=== PATIENT | female | born 1930 | race African-American/Black ===

== ENCOUNTER 2017-05-21 23:57 | Inpatient (IN) | payer OTHER ==
[2017-05-22 00:57] LABS: BASOPHIL 0.3 % (0-2.0); EOSINOPHIL 0.7 % (0-4.5); MCH 30.5 pg (25.7-33.7); MCHC 32.7 g/dl (32.0-36.0); MEAN CELL VOLUME 93.3 fl (80-96); MEAN PLT VOLUME 9.4 fl (7.5-11.1); NEUTROPHILS 81.4 % (42.8-82.8); PLATELET COUNT 188 K/MM3 (134-434); RDW 14.1 % (11.6-15.6); WHITE BLOOD COUNT 18.6 K/mm3 (4.0-10.0)
[2017-05-22 01:20] LABS: ALK PHOS 63 U/L (45-117); ANION GAP 10 (8-16); BILIRUBIN,TOTAL 0.4 mg/dL (0.2-1.0); CALCIUM 8.5 mg/dL (8.5-10.1); CO2 25 mmol/L (21-32); CREATININE 0.5 mg/dL (0.55-1.02); GLUCOSE,RANDOM 148 mg/dL (74-106); SGPT/ALT 25 U/L (12-78); TOT PROT 7.8 g/dl (6.4-8.2)
[2017-05-22 01:21] LABS: SGOT/AST 27 U/L (15-37)
[2017-05-22] MEDS ORDERED: SODIUM CHLORIDE 0.9% 1000 ML INFUS.BAG IV PRN (01:31)
--- NOTE | 2017-05-22 01:58 | PDOC ---
History of Present Illness - History of Present Illness Initial Comments: 05/22/17 01:58 Patient is an 87 year old female with significant medical hx of anemia, dementia , AFib, CVA w/ hemiplegia, GI bleed, previous intubation, chronic PEG tube, chronic respiratory failure (on a vent), and tracheostomy who has been sent to the ED via EMS from [facility] for respiratory distress and bloody secretions from trach. The patient is non-ambulatory and non-verbal; she is unable to provide history and history was taken from [place] papers. <Sugar Solis - Last Filed: 05/22/17 01:58> <Jasmin Warren - Last Filed: 05/22/17 02:18> - General Chief Complaint: Trach Tube Replacement Stated Complaint: TRACH PROBLEM Time Seen by Provider: 05/22/17 01:27 Past History <Sugar Solis - Last Filed: 05/22/17 01:58> - Past Medical History Anemia: Yes Cardiac Disorders: Yes (atrial fibrillation) CVA: Yes Suicide Attempt (Hx): (unknown) - Surgical History Abdominal Surgery: Yes (gastrostomy) - Psycho/Social/Smoking Cessation Hx Anxiety: No Suicidal Ideation: No Smoking Status: No Smoking History: Unknown if ever smoked Have you smoked in the past 12 months: No Number of Cigarettes Smoked Daily: 0 Hx Alcohol Use: No Drug/Substance Use Hx: No Substance Use Type: None <Jasmin Warren - Last Filed: 05/22/17 02:18> - Past Medical History Allergies/Adverse Reactions: Allergies Allergy/AdvReac Type Severity Reaction Status Date / Time No Known Allergies Allergy Verified 11/28/15 20:57 Home Medications: Ambulatory Orders Acetaminophen [Tylenol] 325 mg GT QID 09/30/14 Dextran 70/Hypromellose [Artificial Tears Drops] 1 drop OP DAILY 09/30/14 Diltiazem [Cardizem -] 60 mg PO Q6H 09/30/14 Heparin Na (Porcine) [Heparin] 5,000 units SCJ BID 09/30/14 Ipratropium/Albuterol Sulfate [Iprat-Albut 0.5-3(2.5) mg/3 ml] 3 ml IH QID PRN 09/30/14 Lactobacillus Acidophilus [Acidophilus] 1 each GT QID 09/30/14 Metoclopramide HCl 10 mg GT Q6H 09/30/14 Potassium Chloride 7.5 ml GT DAILY 09/30/14 Simethicone 80 mg GT QID 09/30/14 Pravastatin Sodium [Pravachol -] 40 mg GT HS 11/02/15 Cholestyramine/Sucrose [Questran Packet -] 4 gm PO ACDIN packet 11/09/15 Levothyroxine [Synthroid -] 88 mcg GT ACBK tablet 11/09/15 Omeprazole [Prilosec (RX)] 40 mg GT BID #0 11/09/15 Review of Systems - Review of Systems Comments:: 05/22/17 02:00 Patient unable to participate in ROS. <Sugar Solis - Last Filed: 05/22/17 01:58> *Physical Exam - Vital Signs Last Vital Signs Temp Pulse Resp BP Pulse Ox 101.7 F H 82 18 167/85 98 05/22/17 00:11 05/22/17 00:38 05/22/17 00:37 05/22/17 00:11 05/22/17 00:38 - Physical Exam Comments: 05/22/17 02:00 GENERAL: Well developed, well nourished. Awake. Non-verbal. No acute distress. HEENT: Normocephalic, atraumatic. PERRLA, EOMI. No conjunctival pallor. Sclera are non- icteric. Moist mucous membranes. Oropharynx is clear. NECK: Supple. Full ROM. No JVD. Carotid pulses 2+ and symmetric, without bruits. No thyromegaly. No lymphadenopathy. CARDIOVASCULAR: Regular rate and rhythm. No murmurs, rubs, or gallops. Distal pulses are 2+ and symmetric. PULMONARY: Tracheostomy in place with frothy secretions. Chronic respiratory failure on a vent. Diffuse rhonchorous breath sounds. ABDOMINAL: G-tube intact without erythema. Soft. Non-tender. Non-distended. No rebound or guarding. No organomegaly. Normoactive bowel sounds. : Pino in place. MUSCULOSKELETAL: No bony deformities or tenderness. No CVA tenderness. EXTREMITIES: Contracted lower extremities. No cyanosis. No clubbing. No edema. No calf tenderness. SKIN: Warm and dry. Normal capillary refill. No rashes. No jaundice. NEUROLOGICAL: Alert. Non-verbal. Non-ambulatory. Functional quadriplegic. <Sugar Solis - Last Filed: 05/22/17 01:58> - Vital Signs Last Vital Signs Temp Pulse Resp BP Pulse Ox 101.7 F H 82 18 167/85 98 05/22/17 00:11 05/22/17 00:38 05/22/17 00:37 05/22/17 00:11 05/22/17 00:38 <Jasmin Warren - Last Filed: 05/22/17 02:18> ED Treatment Course - LABORATORY CBC & Chemistry Diagram: 05/22/17 00:20 05/22/17 00:20 - ADDITIONAL ORDERS Additional order review: Laboratory Results 05/22/17 05/22/17 00:40 00:20 Sodium 130 L Potassium 4.7 Chloride 95 L Carbon Dioxide 25 Anion Gap 10 BUN 17 D Creatinine 0.5 L D Creat Clearance w eGFR > 60 Random Glucose 148 H Lactic Acid 1.9 Calcium 8.5 Total Bilirubin 0.4 D AST 27 ALT 25 D Alkaline Phosphatase 63 Total Protein 7.8 Albumin 3.0 L 05/22/17 00:20 RBC 3.71 MCV 93.3 MCHC 32.7 RDW 14.1 MPV 9.4 Neutrophils % 81.4 D Lymphocytes % 9.1 D Monocytes % 8.5 Eosinophils % 0.7 Basophils % 0.3 <IrmaSugar - Last Filed: 05/22/17 01:58> - LABORATORY CBC & Chemistry Diagram: 05/22/17 00:20 05/22/17 00:20 - ADDITIONAL ORDERS Additional order review: Laboratory Results 05/22/17 05/22/17 00:40 00:20 Sodium 130 L Potassium 4.7 Chloride 95 L Carbon Dioxide 25 Anion Gap 10 BUN 17 D Creatinine 0.5 L D Creat Clearance w eGFR > 60 Random Glucose 148 H Lactic Acid 1.9 Calcium 8.5 Total Bilirubin 0.4 D AST 27 ALT 25 D Alkaline Phosphatase 63 Total Protein 7.8 Albumin 3.0 L 05/22/17 00:20 RBC 3.71 MCV 93.3 MCHC 32.7 RDW 14.1 MPV 9.4 Neutrophils % 81.4 D Lymphocytes % 9.1 D Monocytes % 8.5 Eosinophils % 0.7 Basophils % 0.3 - RADIOLOGY Radiology Studies Ordered: Category Date Time Status CHEST X-RAY PORTABLE* [RAD] Stat Radiology 05/22/17 01:31 Ordered <Jasmin Warren - Last Filed: 05/22/17 02:18> Medical Decision Making - Medical Decision Making 05/22/17 01:59 Dr. Hays is patient's PCP who requested that Dr. Martinez admit the patient. <Sugar Solis - Last Filed: 05/22/17 01:58> - Critical Care Time Total Critical Care Time (minutes): 30 Critical Care Statement: The care of this patient involved high complexity decision making to prevent further life threatening deterioration of the patient 's condition and/or to evalute & treat vital organ system(s) failure or risk of failure. - Medical Decision Making 05/22/17 02:08 87-year-old female who is a chronic vent patient brought in by ambulance to the senior care for a frothy discharge from her trach. this is a fever of 101.7, and requires sepsis workup CBC, chemistry, cardiac, blood cultures, urine cultures and lactic , chest x- ray didn't I spoke with Dr. Martinez because Dr. Hays requested Dr. Martinez admit the patient Patient will be admitted to [facility] <Jasmin Warren - Last Filed: 05/22/17 02:18> *DC/Admit/Observation/Transfer - Attestations Scribe Attestion: 05/22/17 02:04 Documentation prepared by Sugar Solis, acting as director medical for Jasmin Warren MD. <Sugar Solis - Last Filed: 05/22/17 01:58> - Discharge Dispostion Admit: Yes <Jasmin Warren - Last Filed: 05/22/17 02:18> Diagnosis at time of Disposition: Fever Qualifiers: Fever type: due to other condition Qualified Code(s): R50.81 - Fever presenting with conditions classified elsewhere Atrial fibrillation Qualifiers: Atrial fibrillation type: unspecified Qualified Code(s): I48.91 - Unspecified atrial fibrillation Dementia Qualifiers: Dementia type: unspecified type Dementia behavioral disturbance: without behavioral disturbance Qualified Code(s): F03.90 - Unspecified dementia without behavioral disturbance
[2017-05-22 02:02] LABS: VENOUS PH 7.44 (7.32-7.42)
[2017-05-22 02:03] LABS: VENOUS BLOOD GAS HCO3 24.3 meq/L (19-25)
[2017-05-22] MEDS ORDERED: ACETAMINOPHEN 650 MG SUPP.RECT PR ONE (02:13)
[2017-05-22] MEDS ORDERED: VANCOMYCIN 1,000 MG in DEXTROSE 5%-WATER - 250 ML IVPB ONE (02:13)
[2017-05-22] MEDS ORDERED: PIPERACILLIN/TAZOB 3.375 GM 3.375 GM in DEXTROSE 5%-WATER - 50 ML IVPB ONE (02:14)
[2017-05-22 02:39] LABS: INR 1.15 (0.82-1.09); PROTHROMBIN TIME (PATIENT) 12.7 SEC (9.98-11.88)
[2017-05-22 02:49] LABS: TROPONIN I < 0.02 ng/ml (0.00-0.05)
[2017-05-22 03:10] LABS: URINE APPEARANCE CLEAR; URINE BILIRUBIN NEGATIVE (NEGATIVE); URINE BLOOD NEGATIVE (NEGATIVE); URINE COLOR YELLOW; URINE GLUCOSE (UA) NEGATIVE (NEGATIVE); URINE KETONE NEGATIVE (NEGATIVE); URINE LEUK ESTERASE NEGATIVE (NEGATIVE); URINE NITRITE NEGATIVE (NEGATIVE); URINE PROTEIN 2+ (NEGATIVE); URINE UROBILINOGEN NEGATIVE E.U./dl (0.2-1.0)
[2017-05-22] MEDS ORDERED: VANCOMYCIN 1 GRAM (PRE-DOCKED) 250 ML IVPB ONE (03:16)
[2017-05-22] MEDS ORDERED: PIPERACILLIN/TAZOB 3.375 GM 50 ML IVPB ONE (03:16)
[2017-05-22 04:24] LABS: URINE MUCUS RARE; URINE RBC 2 /hpf (0-3); URINE WBC 2 /hpf (3-5)
[2017-05-22] MEDS: IPRATROPIUM BR 0.02% 0.5 MG/2.5 ML VIAL.NEB. NEB SCH ×3 (06:03→18:06)
[2017-05-22] MEDS: dilTIAZem HCL 60 MG TABLET (FP) PO SCH ×3 (06:03→17:58)
[2017-05-22] MEDS: ALBUTEROL SO4 0.083% IH SOL 2.5 MG/3 ML VIAL.NEB. NEB SCH ×3 (06:03→18:06)
[2017-05-22] MEDS: METOCLOPRAMIDE HCL 10 MG TABLET (FP) PO SCH ×3 (06:04→17:58)
[2017-05-22] MEDS ORDERED: METOCLOPRAMIDE HCL 10 MG TABLET (FP) PO ONE (06:06)
[2017-05-22] MEDS ORDERED: dilTIAZem HCL 60 MG TABLET (FP) ONE (06:06)
[2017-05-22] MEDS: LEVOTHYROXINE NA 88 MCG TABLET (FP) GT SCH (07:02)
[2017-05-22] MEDS ORDERED: CEFTRIAXONE 50 ML IVPB SCH (10:00)
--- NOTE | 2017-05-22 11:21 | PN ---
Progress Note (short form) - Note Progress Note: ID Consult dictated Ventilator associated pneumonia Possible sepsis secondary to pneumonia Chronic respiratory failure Fever/ leukocytosis Lactic acidosis Obtain suctioned sputum c/s Empiric zosyn
--- NOTE | 2017-05-22 11:45 | CONS ---
DATE OF CONSULTATION: 05/22/2017 INFECTIOUS DISEASE CONSULTATION HISTORY OF PRESENT ILLNESS: The patient is an 87-year-old female with a history of chronic respiratory failure admitted from the longterm with pneumonia. History is obtained from the chart as she cannot give a history secondary to dementia. At the longterm she was noted to be increasingly short of breath with blood-tinged tracheal secretions. She was transferred to the emergency room where her temperature was 101.7 and white blood cell count was 18.6. Chest x-ray showed congestion bilaterally. She was empirically treated with ceftriaxone. She is unable to give any additional history. According to the notes no recent hospitalizations. PAST MEDICAL HISTORY: Positive for dementia, chronic anemia, atrial fibrillation, stroke, gastrointestinal bleeding. PAST SURGICAL HISTORY: Status post tracheostomy and feeding gastrostomy. ALLERGIES: No known drug allergies. MEDICATIONS: Include Cardizem, Lipitor, Protonix, Reglan, ceftriaxone, Synthroid. SOCIAL HISTORY: [facility] resident, dependent activities of daily living. REVIEW OF SYSTEMS: Neurologic: Positive for stroke and dementia. Cardiac: Negative for chest pain or palpitations. Respiratory: As per HPI. Gastrointestinal: Status post feeding gastrostomy. Genitourinary: Negative for urinary tract infection. LABORATORY DATA: White count is 18.6 with 81 neutrophils, 9 lymphocytes, 8 monocytes, hematocrit 34.1, platelet count 188. BUN 17, creatinine 0.5. Urinalysis showed 2 white cells. Blood and urine cultures are pending. Chest x-ray shows congestion bilaterally with nonvisualization of the left hemidiaphragm. PHYSICAL EXAMINATION: General: The patient is awake but not verbally responsive. Vital signs: Temperature 100, T-max 101.7, blood pressure 125/71, pulse 81 regular, respirations 16 per minute. HEENT: Sclerae anicteric. Tracheostomy in place. Heart: S1, S2. Lungs: Rhonchi bilaterally. Abdomen: Obese, soft, positive ventral hernia, feeding gastrostomy tube is in place. No erythema or tenderness. Extremities: 1+ edema, no heel or sacral decubitus ulcers. IMPRESSION: 1. Ventilator associated pneumonia. 2. Possible sepsis secondary to pneumonia. 3. Chronic respiratory failure. 4. Fever/leukocytosis. 5. Lactic acidosis. RECOMMENDATIONS: I have obtained suction or sputum culture and sensitivity. Await blood culture results. Empiric Zosyn, bronchodilators, ventilatory support. Will follow. Thank you for the kind referral. ELAINE TREVIÑO M.D. [id number]
[2017-05-22] MEDS: PANTOPRAZOLE SOD 40 MG SUSPENSION PACKET GT SCH ×2 (11:51→22:36)
[2017-05-22] MEDS: HEPARIN NA (PORCINE) 5,000 UNITS/ML 1ML VIAL SQ SCH ×2 (11:52→22:34)
[2017-05-22] MEDS: PIPERACILLIN/TAZOB 3.375 GM 50 ML IVPB SCH ×2 (12:48→17:58)
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
[2017-05-22 14:45] VITALS: BMI 31.2
--- NOTE | 2017-05-22 16:28 | PN ---
Progress Note, Physician Chief Complaint: BLOODY SPUTUM RESPIRATORY DISTRESS History of Present Illness: Patient comfortable on mechanical vent. Seen by ID and Pulmonary Received IVF, on IV abx Sepsis work up - Current Medication List Current Medications: Active Medications Acetaminophen (Tylenol -) 650 mg PO Q6H PRN Albuterol Sulfate (Ventolin 0.083% Nebulizer Soln -) 1 amp NEB Q6HPO TATIANA Last Admin: 05/22/17 11:03 Dose: 1 amp Atorvastatin Calcium (Lipitor -) 10 mg GT HS TATIANA Diltiazem HCl (Cardizem -) 60 mg PO Q6HPO TATIANA Last Admin: 05/22/17 11:52 Dose: 60 mg Heparin Sodium (Porcine) (Heparin -) 5,000 unit SQ BID TATIANA Last Admin: 05/22/17 11:52 Dose: 5,000 unit Piperacillin Sod/Tazobactam Sod (Zosyn 3.375gm Ivpb (Pre-Docked)) 50 mls @ 100 mls/hr IVPB Q8H-IV TATIANA PRN Reason: Protocol Last Admin: 05/22/17 12:48 Dose: 100 mls/hr Ipratropium [place] [facility] (Atrovent 0.02% Nebulizer -) 1 amp NEB Q6HPO TATIANA Last Admin: 05/22/17 11:03 Dose: 1 amp Levothyroxine Sodium (Synthroid -) 88 mcg GT ACBK PENDING SALE TO [facility] Last Admin: 05/22/17 07:02 Dose: Not Given Metoclopramide HCl (Reglan -) 10 mg PO Q6HPO PENDING SALE TO [facility] Last Admin: 05/22/17 11:53 Dose: 10 mg Pantoprazole Sodium (Protonix Packets For Oral Suspension -) 40 mg GT BID PENDING SALE TO [facility] Last Admin: 05/22/17 11:51 Dose: 40 mg Sodium Chloride (Normal Saline -) 250 ml IV Q20M PRN PRN Reason: MAP<65mm Hg OR SBP <90 Last Admin: 05/22/17 06:52 Dose: 250 ml - Objective Vital Signs: Vital Signs Temperature 97.6 F 05/22/17 13:54 Pulse Rate 72 05/22/17 13:54 Respiratory Rate 25 H 05/22/17 14:24 Blood Pressure 107/60 05/22/17 13:54 O2 Sat by Pulse Oximetry (%) 98 05/22/17 11:00 Constitutional: Yes: Well Nourished, No Distress, Calm Cardiovascular: Yes: Regular Rate and Rhythm Respiratory: Yes: Regular Gastrointestinal: Yes: Normal Bowel Sounds Extremities: Yes: WNL Edema: No Peripheral Pulses WNL: Yes Labs: INR, PTT INR 1.15 (0.82-1.09) H 05/22/17 01:45 Problem List - Problems (1) CHF (congestive heart failure) Assessment/Plan: -Congestive changes on CXR -BNP, repeat labs Code(s): I50.9 - HEART FAILURE, UNSPECIFIED (2) Respiratory distress Assessment/Plan: -mechanical vent -Pulmonary consult Code(s): R06.00 - DYSPNEA, UNSPECIFIED (3) Leukocytosis Assessment/Plan: -sepsis workup -repeat lactic acid -seen by ID -IV abx -UCBC,SC pending -repeat labs today and in AM. Code(s): D72.829 - ELEVATED WHITE BLOOD CELL COUNT, UNSPECIFIED Assessment/Plan -repeat labs -iv abx -UC,BC,SC -ID and Pulmonary consult -nutrition consult
--- NOTE | 2017-05-22 16:37 | HP ---
Admitting History and Physical - Primary Care Physician PCP: Elma Martinez - Admission Chief Complaint: RESPIRATORY DISTRESS, FEVER History of Present Illness: Patient is an 87 year old female with significant medical hx of anemia, dementia , AFib, CVA w/ hemiplegia, GI bleed, previous intubation, chronic PEG tube, chronic respiratory failure (on a vent), and tracheostomy who has been sent to the ED via EMS from [facility] for respiratory distress and bloody secretions from trach. The patient is non-ambulatory and non-verbal; she is unable to provide history and history was taken from [place] papers. 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) Cardiovascular: Yes: AFIB Pulmonary: Yes: Previously Intubated, Other (Vent dependent) Gastrointestinal: Yes: GI Bleed - Smoking History Smoking history: Unknown if ever smoked Have you smoked in the past 12 months: No Aproximately how many cigarettes per day: 0 - Alcohol/Substance Use Hx Alcohol Use: No Home Medications - Allergies Allergies/Adverse Reactions: Allergies Allergy/AdvReac Type Severity Reaction Status Date / Time No Known Allergies Allergy Verified 11/28/15 20:57 - Home Medications Home Medications: Ambulatory Orders Acetaminophen [Tylenol] 325 mg GT QID 09/30/14 Diltiazem [Cardizem -] 60 mg PO Q6H 09/30/14 Heparin Na (Porcine) [Heparin] 5,000 units SCJ BID 09/30/14 Lactobacillus Acidophilus [Acidophilus] 1 each GT QID 09/30/14 Metoclopramide HCl 10 mg GT Q6H 09/30/14 Potassium Chloride 7.5 ml GT DAILY 09/30/14 Simethicone 80 mg GT QID 09/30/14 Pravastatin Sodium [Pravachol -] 40 mg GT HS 11/02/15 Cholestyramine/Sucrose [Questran Packet -] 4 gm PO ACDIN packet 11/09/15 Levothyroxine [Synthroid -] 88 mcg GT ACBK tablet 11/09/15 Ranitidine [Zantac -] 150 mg GT HS 05/22/17 Review of Systems Findings/Remarks: PER TRANSFER RECORD - Review of Systems Constitutional: reports: Fever ( PER TRANSFER RECORDS) Respiratory: reports: Hemoptysis Physical Examination Vital Signs: Vital Signs Temperature 97.6 F 05/22/17 13:54 Pulse Rate 72 05/22/17 13:54 Respiratory Rate 25 H 05/22/17 14:24 Blood Pressure 107/60 05/22/17 13:54 O2 Sat by Pulse Oximetry (%) 98 05/22/17 11:00 Constitutional: Yes: Well Nourished, No Distress, Calm Cardiovascular: Yes: Regular Rate and Rhythm Respiratory: Yes: Regular Imaging - Results Chest X-ray: Report Reviewed Problem List - Problems (1) CHF (congestive heart failure) Assessment/Plan: -Congestive changes on CXR -BNP, repeat labs Code(s): I50.9 - HEART FAILURE, UNSPECIFIED (2) Respiratory distress Assessment/Plan: -mechanical vent -Pulmonary consult Code(s): R06.00 - DYSPNEA, UNSPECIFIED (3) Leukocytosis Assessment/Plan: -sepsis workup -repeat lactic acid -seen by ID -IV abx -UC,BC,SC pending -repeat labs today and in AM. Code(s): D72.829 - ELEVATED WHITE BLOOD CELL COUNT, UNSPECIFIED Assessment/Plan -repeat labs -iv abx -UC,BC,SC -ID and Pulmonary consult -nutrition consult -Cardiology consult
[2017-05-22 17:34] LABS: BASOPHIL 0.1 % (0-2.0); EOSINOPHIL 1.2 % (0-4.5); MCH 30.2 pg (25.7-33.7); MCHC 32.5 g/dl (32.0-36.0); MEAN CELL VOLUME 92.8 fl (80-96); MEAN PLT VOLUME 10.4 fl (7.5-11.1); NEUTROPHILS 85.2 % (42.8-82.8); PLATELET COUNT 190 K/MM3 (134-434); RDW 14.1 % (11.6-15.6); WHITE BLOOD COUNT 13.2 K/mm3 (4.0-10.0)
[2017-05-22 18:00] LABS: ALK PHOS 61 U/L (45-117); ANION GAP 9 (8-16); BILIRUBIN,TOTAL 0.5 mg/dL (0.2-1.0); CALCIUM 8.7 mg/dL (8.5-10.1); CO2 27 mmol/L (21-32); CREATININE 0.7 mg/dL (0.55-1.02); GLUCOSE,RANDOM 122 mg/dL (74-106); SGOT/AST 19 U/L (15-37); SGPT/ALT 25 U/L (12-78); TOT PROT 7.9 g/dl (6.4-8.2)
[2017-05-22] MEDS: ATORVASTATIN CA 10 MG TABLET (FP) GT SCH (22:38)
[2017-05-22] MEDS ORDERED: PNEUMOC 13-VAL CONJ-DIP CRM/PF 0.5 ML DISP.SYRIN IM ONE (23:49)
[2017-05-23] MEDS: IPRATROPIUM BR 0.02% 0.5 MG/2.5 ML VIAL.NEB. NEB SCH ×5 (00:06→23:57)
[2017-05-23] MEDS: ALBUTEROL SO4 0.083% IH SOL 2.5 MG/3 ML VIAL.NEB. NEB SCH ×5 (00:06→23:57)
[2017-05-23] MEDS: PIPERACILLIN/TAZOB 3.375 GM 50 ML IVPB SCH ×3 (01:13→17:48)
[2017-05-23] MEDS: dilTIAZem HCL 60 MG TABLET (FP) PO SCH ×5 (01:13→23:03)
[2017-05-23] MEDS: METOCLOPRAMIDE HCL 10 MG TABLET (FP) PO SCH ×5 (01:13→23:03)
[2017-05-23] MEDS: ACETAMINOPHEN 325 MG TABLET (FP) PO PRN ×2 (05:37→23:00)
[2017-05-23] MEDS: LEVOTHYROXINE NA 88 MCG TABLET (FP) GT SCH (06:07)
[2017-05-23 07:34] LABS: BASOPHIL 0.2 % (0-2.0); EOSINOPHIL 1.3 % (0-4.5); MCH 30.8 pg (25.7-33.7); MCHC 33.1 g/dl (32.0-36.0); MEAN CELL VOLUME 92.9 fl (80-96); MEAN PLT VOLUME 10.1 fl (7.5-11.1); NEUTROPHILS 85.5 % (42.8-82.8); PLATELET COUNT 175 K/MM3 (134-434); WHITE BLOOD COUNT 16.8 K/mm3 (4.0-10.0)
[2017-05-23 08:32] LABS: ALBUMIN 2.8 g/dl (3.4-5.0); ALK PHOS 92 U/L (45-117); ANION GAP 11 (8-16); BILIRUBIN,TOTAL 0.4 mg/dL (0.2-1.0); CALCIUM 8.2 mg/dL (8.5-10.1); CO2 24 mmol/L (21-32); CREATININE 0.8 mg/dL (0.55-1.02); GLUCOSE,RANDOM 173 mg/dL (74-106); SGOT/AST 51 U/L (15-37); SGPT/ALT 47 U/L (12-78); TOT PROT 7.8 g/dl (6.4-8.2)
--- NOTE | 2017-05-23 11:31 | EKG ---
Test Reason : Blood Pressure : / mmHG Vent. Rate : 082 BPM Atrial Rate : 082 BPM P-R Int : 000 ms QRS Dur : 122 ms QT Int : 380 ms P-R-T Axes : 000 -43 046 degrees QTc Int : 443 ms UNDETERMINED RHYTHM LEFT AXIS DEVIATION RIGHT BUNDLE BRANCH BLOCK ABNORMAL ECG Confirmed by RYAN WILLIS MD ([id number]) on 05/23/2017 11:30:42 AM Referred By: Confirmed By:RYAN WILLIS MD
--- NOTE | 2017-05-23 11:32 | PN ---
Progress Note, Physician Chief Complaint: BLOODY SPUTUM RESPIRATORY DISTRESS History of Present Illness: Patient comfortable on mechanical vent. Seen by ID and Pulmonary Received IVF, on IV abx Sepsis work up - Current Medication List Current Medications: Active Medications Acetaminophen (Tylenol -) 650 mg PO Q6H PRN Last Admin: 05/23/17 05:37 Dose: 650 mg Albuterol Sulfate (Ventolin 0.083% Nebulizer Soln -) 1 amp NEB Q6HPO TATIANA Last Admin: 05/23/17 07:14 Dose: 1 amp Atorvastatin Calcium (Lipitor -) 10 mg GT HS TATIANA Last Admin: 05/22/17 22:38 Dose: 10 mg Diltiazem HCl (Cardizem -) 60 mg PO Q6HPO TATIANA Last Admin: 05/23/17 05:30 Dose: 60 mg Heparin Sodium (Porcine) (Heparin -) 5,000 unit SQ BID TATIANA Last Admin: 05/22/17 22:34 Dose: 5,000 unit Piperacillin Sod/Tazobactam Sod (Zosyn 3.375gm Ivpb (Pre-Docked)) 50 mls @ 100 mls/hr IVPB Q8H-IV TATIANA PRN Reason: Protocol Last Admin: 05/23/17 01:13 Dose: 100 mls/hr Ipratropium [place] (Atrovent 0.02% Nebulizer -) 1 amp NEB Q6HPO TATIANA Last Admin: 05/23/17 07:14 Dose: 1 amp Levothyroxine Sodium (Synthroid -) 88 mcg GT ACBK TATIANA Last Admin: 05/23/17 06:07 Dose: 88 mcg Metoclopramide HCl (Reglan -) 10 mg PO Q6HPO TATIANA Last Admin: 05/23/17 05:30 Dose: 10 mg Pantoprazole Sodium (Protonix Packets For Oral Suspension -) 40 mg GT BID TATIANA Last Admin: 05/22/17 22:36 Dose: 40 mg Sodium Chloride (Normal Saline -) 250 ml IV Q20M PRN PRN Reason: MAP<65mm Hg OR SBP <90 Last Admin: 05/22/17 06:52 Dose: 250 ml - Objective Vital Signs: Vital Signs Temperature 98.6 F 05/23/17 09:22 Pulse Rate 78 05/23/17 09:22 Respiratory Rate 20 05/23/17 10:05 Blood Pressure 122/70 05/23/17 09:22 O2 Sat by Pulse Oximetry (%) 99 05/22/17 22:00 Constitutional: Yes: Well Nourished, No Distress, Calm Cardiovascular: Yes: Regular Rate and Rhythm Respiratory: Yes: Regular Gastrointestinal: Yes: Normal Bowel Sounds Extremities: Yes: WNL Edema: No Peripheral Pulses WNL: No Peripheral Pulses: Left Doralis Pedis: 1+, Right Dorsalis Pedis: 1+ Neurological: Yes: Aphasia, Pre-Existing Deficit, Unresponsive Labs: CBC, BMP 05/23/17 06:10 05/23/17 06:10 INR, PTT INR 1.15 (0.82-1.09) H 05/22/17 01:45 Problem List - Problems (1) CHF (congestive heart failure) Assessment/Plan: -Congestive changes on CXR Troponin, BNP 05/22/17 16:40 B-Natriuretic Peptide 4386.46 H -to be seen by cardiology Code(s): I50.9 - HEART FAILURE, UNSPECIFIED (2) Respiratory distress Assessment/Plan: -chronic -mechanical vent -Pulmonary consult Code(s): R06.00 - DYSPNEA, UNSPECIFIED (3) Leukocytosis Assessment/Plan: -sepsis workup -repeat lactic acid 1.8 -seen by ID -IV abx -UC,BC,SC pending WBC 16.8 K/mm3 (4.0-10.0) H 05/23/17 06:10 RBC 3.88 M/mm3 (3.60-5.2) 05/23/17 06:10 Hgb 11.9 GM/dL (10.7-15.3) 05/23/17 06:10 Hct 36.0 % (32.4-45.2) 05/23/17 06:10 MCV 92.9 fl (80-96) 05/23/17 06:10 MCHC 33.1 g/dl (32.0-36.0) 05/23/17 06:10 RDW 14.0 % (11.6-15.6) 05/23/17 06:10 Plt Count 175 K/MM3 (134-434) 05/23/17 06:10 MPV 10.1 fl (7.5-11.1) 05/23/17 06:10 Neutrophils % 85.5 % (42.8-82.8) H 05/23/17 06:10 Lymphocytes % 5.4 % (8-40) L 05/23/17 06:10 Monocytes % 7.6 % (3.8-10.2) 05/23/17 06:10 Eosinophils % 1.3 % (0-4.5) 05/23/17 06:10 Basophils % 0.2 % (0-2.0) 05/23/17 06:10 Sodium 133 mmol/L (136-145) L 05/23/17 06:10 Potassium 4.4 mmol/L (3.5-5.1) 05/23/17 06:10 Chloride 98 mmol/L (98-107) 05/23/17 06:10 Carbon Dioxide 24 mmol/L (21-32) 05/23/17 06:10 Anion Gap 11 (8-16) 05/23/17 06:10 BUN 24 mg/dL (7-18) H D 05/23/17 06:10 Creatinine 0.8 mg/dL (0.55-1.02) 05/23/17 06:10 Creat Clearance w eGFR > 60 (>60) 05/23/17 06:10 Random Glucose 173 mg/dL (74-106) H D 05/23/17 06:10 Lactic Acid 1.8 mmol/L (0.4-2.0) 05/23/17 06:10 Calcium 8.2 mg/dL (8.5-10.1) L 05/23/17 06:10 Total Bilirubin 0.4 mg/dL (0.2-1.0) 05/23/17 06:10 AST 51 U/L (15-37) H D 05/23/17 06:10 ALT 47 U/L (12-78) D 05/23/17 06:10 Alkaline Phosphatase 92 U/L (45-117) D 05/23/17 06:10 Creatine Kinase 78 IU/L (26-192) 05/22/17 01:45 Troponin I < 0.02 ng/ml (0.00-0.05) 05/22/17 01:45 B-Natriuretic Peptide 4386.46 pg/ml (5-450) H 05/22/17 16:40 Total Protein 7.8 g/dl (6.4-8.2) 05/23/17 06:10 Albumin 2.8 g/dl (3.4-5.0) L 05/23/17 06:10 Code(s): D72.829 - ELEVATED WHITE BLOOD CELL COUNT, UNSPECIFIED Assessment/Plan -repeat labs in AM -iv abx -UC,BC,SC pending -ID and Pulmonary consult -nutrition consult -Cardiology consult -feeding adjusted.
--- NOTE | 2017-05-23 11:38 | PN ---
Progress Note (short form) - Note Progress Note: PULMONARY Febrile overnight. Vented on volume assist control with 28% FiO2. Pt unresponsive. Last Vital Signs Temp Pulse Resp BP Pulse Ox 98.6 F 78 20 122/70 99 05/23/17 09:22 05/23/17 09:22 05/23/17 10:05 05/23/17 09:22 05/22/17 22:00 Gen: vented, unresponsive Heart: RRR Lung: scattered rhonchi Abd: soft, nontender Ext: no edema CBC, BMP 05/23/17 06:10 05/23/17 06:10 Active Medications Acetaminophen (Tylenol -) 650 mg PO Q6H PRN Last Admin: 05/23/17 05:37 Dose: 650 mg Albuterol Sulfate (Ventolin 0.083% Nebulizer Soln -) 1 amp NEB Q6HPO TAT[place]NA Last Admin: 05/23/17 07:14 Dose: 1 amp Atorvastatin Calcium (Lipitor -) 10 mg GT HS TATIANA Last Admin: 05/22/17 22:38 Dose: 10 mg Diltiazem HCl (Cardizem -) 60 mg PO Q6HPO T[place]NA Last Admin: 05/23/17 05:30 Dose: 60 mg Heparin Sodium (Porcine) (Heparin -) 5,000 unit SQ BID TATIANA Last Admin: 05/22/17 22:34 Dose: 5,000 unit Piperacillin Sod/Tazobactam Sod (Zosyn 3.375gm Ivpb (Pre-Docked)) 50 mls @ 100 mls/hr IVPB Q8H-IV TATIANA PRN Reason: Protocol Last Admin: 05/23/17 01:13 Dose: 100 mls/hr Ipratropium [place] (Atrovent 0.02% Nebulizer -) 1 amp NEB Q6HPO TAT[place]NA Last Admin: 05/23/17 07:14 Dose: 1 amp Levothyroxine Sodium (Synthroid -) 88 mcg GT ACBK T[place]NA Last Admin: 05/23/17 06:07 Dose: 88 mcg Metoclopramide HCl (Reglan -) 10 mg PO Q6HPO TAT[place]NA Last Admin: 05/23/17 05:30 Dose: 10 mg Pantoprazole Sodium (Protonix Packets For Oral Suspension -) 40 mg GT BID T[place]NA Last Admin: 05/22/17 22:36 Dose: 40 mg Sodium Chloride (Normal Saline -) 250 ml IV Q20M PRN PRN Reason: MAP<65mm Hg OR SBP <90 Last Admin: 05/22/17 06:52 Dose: 250 ml A/P Chronic Respiratory Failure Ventilator Associated Pneumonia Anoxic Encephalopathy Lactic Acidosis resolved Atrial fibrillation - antibiotics per ID - f/u cultures - IVF - enteral feeds - continue volume assist control - not a candidate for weaning at this time due to mental status - DVT/GI prophylaxis
[2017-05-23] MEDS: PANTOPRAZOLE SOD 40 MG SUSPENSION PACKET GT SCH ×2 (11:39→22:59)
[2017-05-23] MEDS: HEPARIN NA (PORCINE) 5,000 UNITS/ML 1ML VIAL SQ SCH ×2 (11:40→22:59)
--- NOTE | 2017-05-23 13:28 | PN ---
Progress Note, Physician Chief Complaint: Awake, non- verbal temp noted WBC remains elevated Cultures pending - Current Medication List Current Medications: Active Medications Acetaminophen (Tylenol -) 650 mg PO Q6H PRN Last Admin: 05/23/17 05:37 Dose: 650 mg Albuterol Sulfate (Ventolin 0.083% Nebulizer Soln -) 1 amp NEB Q6HPO TAT[place]NA Last Admin: 05/23/17 11:30 Dose: 1 amp Atorvastatin Calcium (Lipitor -) 10 mg GT HS TATIANA Last Admin: 05/22/17 22:38 Dose: 10 mg Diltiazem HCl (Cardizem -) 60 mg PO Q6HPO TAT[place]NA Last Admin: 05/23/17 11:43 Dose: 60 mg Heparin Sodium (Porcine) (Heparin -) 5,000 unit SQ BID TATIANA Last Admin: 05/23/17 11:40 Dose: 5,000 unit Piperacillin Sod/Tazobactam Sod (Zosyn 3.375gm Ivpb (Pre-Docked)) 50 mls @ 100 mls/hr IVPB Q8H-IV TATIANA PRN Reason: Protocol Last Admin: 05/23/17 11:38 Dose: 100 mls/hr Ipratropium [place] (Atrovent 0.02% Nebulizer -) 1 amp NEB Q6HPO TATIANA Last Admin: 05/23/17 11:30 Dose: 1 amp Levothyroxine Sodium (Synthroid -) 88 mcg GT ACBK TATIANA Last Admin: 05/23/17 06:07 Dose: 88 mcg Metoclopramide HCl (Reglan -) 10 mg PO Q6HPO TATIANA Last Admin: 05/23/17 11:39 Dose: 10 mg Pantoprazole Sodium (Protonix Packets For Oral Suspension -) 40 mg GT BID TATIANA Last Admin: 05/23/17 11:39 Dose: 40 mg Sodium Chloride (Normal Saline -) 250 ml IV Q20M PRN PRN Reason: MAP<65mm Hg OR SBP <90 Last Admin: 05/22/17 06:52 Dose: 250 ml - Objective Vital Signs: Vital Signs Temperature 98.6 F 05/23/17 09:22 Pulse Rate 78 05/23/17 09:22 Respiratory Rate 20 05/23/17 10:05 Blood Pressure 122/70 05/23/17 09:22 O2 Sat by Pulse Oximetry (%) 99 05/22/17 22:00 Constitutional: Yes: No Distress Eyes: Yes: Conjunctiva Clear Cardiovascular: Yes: Regular Rate and Rhythm, S1, S2 Respiratory: Yes: Diminished Gastrointestinal: Yes: Normal Bowel Sounds, Soft. No: Tenderness Edema: Yes Labs: CBC, BMP 05/23/17 06:10 05/23/17 06:10 INR, PTT INR 1.15 (0.82-1.09) H 05/22/17 01:45 Assessment/Plan Ventilator associated pneumonia Sepsis secondary to pneumonia Chronic respiratory failure Fever/leukocytosis Lactic acidosis- resolved Await c/s Continue empiric zosyn Ventilatory support
--- NOTE | 2017-05-23 14:21 | CON.CARD ---
Consult Consult Specialty:: Cardiology Referred by:: Dr Martinez Reason for Consultation:: resp distress - History of Present Illness Chief Complaint: resp distress History of Present Illness: 87 year old female history of anemia, dementia, AFib, CVA, GI bleed, tracheostomy and PEG tube due to chronic respiratory failure, NHR, sent to the ED via EMS from [facility] for respiratory distress and bloody secretions from trach. The patient is non-ambulatory and non-verbal; she is unable to provide any history. Found with elevated wbc, fever and also elevated bnp. 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[place]/CVA) Cardio/Vascular: Yes: AFIB Pulmonary: Yes: Previously Intubated, Other (Vent dependent) Gastrointestinal: Yes: GI Bleed - Alcohol/Substance Use Hx Alcohol Use: No - Smoking History Smoking history: Unknown if ever smoked Have you smoked in the past 12 months: No Aproximately how many cigarettes per day: 0 Home Medications - Allergies Allergies/Adverse Reactions: Allergies Allergy/AdvReac Type Severity Reaction Status Date / Time No Known Allergies Allergy Verified 11/28/15 20:57 - Home Medications Home Medications: Ambulatory Orders Acetaminophen [Tylenol] 325 mg GT QID 09/30/14 Diltiazem [Cardizem -] 60 mg PO Q6H 09/30/14 Heparin Na (Porcine) [Heparin] 5,000 units SCJ BID 09/30/14 Lactobacillus Acidophilus [Acidophilus] 1 each GT QID 09/30/14 Metoclopramide HCl 10 mg GT Q6H 09/30/14 Potassium Chloride 7.5 ml GT DAILY 09/30/14 Simethicone 80 mg GT QID 09/30/14 Pravastatin Sodium [Pravachol -] 40 mg GT HS 11/02/15 Cholestyramine/Sucrose [Questran Packet -] 4 gm PO ACDIN packet 11/09/15 Levothyroxine [Synthroid -] 88 mcg GT ACBK tablet 11/09/15 Ranitidine [Zantac -] 150 mg GT HS 05/22/17 Review of Systems Unable to obtain ROS, reason: dementia Vital Signs: Vital Signs Temperature 98.6 F 05/23/17 09:22 Pulse Rate 78 05/23/17 09:22 Respiratory Rate 16 05/23/17 14:07 Blood Pressure 122/70 07/06/17 09:22 O2 Sat by Pulse Oximetry (%) 99 05/22/17 22:00 Constitutional: Yes: No Distress Eyes: Yes: Conjunctiva Clear HENT: Yes: Atraumatic, Normocephalic Neck: Yes: Other (tracheostomy) Respiratory: Yes: Mechanically Ventilated Gastrointestinal: Yes: Normal Bowel Sounds Cardiovascular: Yes: Pulse Irregular JVD: Yes Carotid Bruit: No PMI: Displaced Heart Sounds: Yes: S1, S2 Edema: Yes Edema: LLE: 1+, RLE: 1+ Peripheral Pulses WNL: Yes - Other Data Labs, Other Data: CBC, BMP 05/23/17 06:10 05/23/17 06:10 INR, PTT INR 1.15 (0.82-1.09) H 05/22/17 01:45 Troponin, BNP 05/22/17 16:40 B-Natriuretic Peptide 4386.46 H Troponin, BNP 05/22/17 16:40 B-Natriuretic Peptide 4386.46 H Echo: Report Reviewed (nlef 2013) Imaging - Results Chest X-ray: Report Reviewed (congestive changes, left base density) EKG: Report Reviewed (afib lad rbbb) Problem List - Problems (1) Atrial fibrillation Assessment/Plan: stable on medications. Rates are controlled. Code(s): I48.91 - UNSPECIFIED ATRIAL FIBRILLATION Qualifiers: Atrial fibrillation type: unspecified Qualified Code(s): I48.91 - Unspecified atrial fibrillation (2) CHF (congestive heart failure) Assessment/Plan: she has acute on chronic diastolic chf which is stable at present, exacerbated by her infected state with capillary leak from sepsis and low oncotic pressures. defer lasix due to worsening azotemia and alkalosis with rising bicarb. not a candidate for cardiac workup. conservative care for symptoms only at this point from a cardiac perspective. will see as needed. Code(s): I50.9 - HEART FAILURE, UNSPECIFIED Qualifiers: Congestive heart failure type: diastolic Congestive heart failure chronicity: acute on chronic Qualified Code(s): I50.33 - Acute on chronic diastolic (congestive) heart failure
[2017-05-23] MEDS: ATORVASTATIN CA 10 MG TABLET (FP) GT SCH (22:59)
[2017-05-24] MEDS: PIPERACILLIN/TAZOB 3.375 GM 50 ML IVPB SCH ×3 (02:14→17:26)
[2017-05-24] MEDS: IPRATROPIUM BR 0.02% 0.5 MG/2.5 ML VIAL.NEB. NEB SCH ×4 (06:02→23:18)
[2017-05-24] MEDS: ALBUTEROL SO4 0.083% IH SOL 2.5 MG/3 ML VIAL.NEB. NEB SCH ×4 (06:03→23:18)
[2017-05-24] MEDS: METOCLOPRAMIDE HCL 10 MG TABLET (FP) PO SCH ×4 (06:08→23:42)
[2017-05-24] MEDS: LEVOTHYROXINE NA 88 MCG TABLET (FP) GT SCH (06:08)
[2017-05-24] MEDS: dilTIAZem HCL 60 MG TABLET (FP) PO SCH ×4 (06:08→23:42)
[2017-05-24] MEDS ORDERED: PT OWN MED DRAWER 7, Y5N ONE (09:58)
--- NOTE | 2017-05-24 10:20 | PN ---
Progress Note, Physician Chief Complaint: BLOODY SPUTUM RESPIRATORY DISTRESS History of Present Illness: Patient comfortable on mechanical vent. Seen by ID and Pulmonary Received IVF, on IV abx Sepsis work up - Current Medication List Current Medications: Active Medications Acetaminophen (Tylenol -) 650 mg PO Q6H PRN Last Admin: 05/23/17 23:00 Dose: 650 mg Albuterol Sulfate (Ventolin 0.083% Nebulizer Soln -) 1 amp NEB Q6HPO TATIANA Last Admin: 05/24/17 06:03 Dose: 1 amp Atorvastatin Calcium (Lipitor -) 10 mg GT HS TATIANA Last Admin: 05/23/17 22:59 Dose: 10 mg Diltiazem HCl (Cardizem -) 60 mg PO Q6HPO TATIANA Last Admin: 05/24/17 06:08 Dose: 60 mg Heparin Sodium (Porcine) (Heparin -) 5,000 unit SQ BID TATIANA Last Admin: 05/23/17 22:59 Dose: 5,000 unit Piperacillin Sod/Tazobactam Sod (Zosyn 3.375gm Ivpb (Pre-Docked)) 50 mls @ 100 mls/hr IVPB Q8H-IV TATIANA PRN Reason: Protocol Last Admin: 05/24/17 02:14 Dose: 100 mls/hr Ipratropium [place] (Atrovent 0.02% Nebulizer -) 1 amp NEB Q6HPO TATIANA Last Admin: 05/24/17 06:02 Dose: 1 amp Levothyroxine Sodium (Synthroid -) 88 mcg GT ACBK TATIANA Last Admin: 05/24/17 06:08 Dose: 88 mcg Metoclopramide HCl (Reglan -) 10 mg PO Q6HPO T[place]NA Last Admin: 05/24/17 06:08 Dose: 10 mg Pantoprazole Sodium (Protonix Packets For Oral Suspension -) 40 mg GT BID TATIANA Last Admin: 05/23/17 22:59 Dose: 40 mg Sodium Chloride (Normal Saline -) 250 ml IV Q20M PRN PRN Reason: MAP<65mm Hg OR SBP <90 Last Admin: 05/22/17 06:52 Dose: 250 ml - Objective Vital Signs: Vital Signs Temperature 99.8 F H 05/24/17 06:00 Pulse Rate 101 H 05/24/17 06:00 Respiratory Rate 21 05/24/17 09:50 Blood Pressure 144/79 05/24/17 06:00 O2 Sat by Pulse Oximetry (%) 94 L 05/24/17 09:49 Constitutional: Yes: Well Nourished, No Distress, Calm Cardiovascular: Yes: Regular Rate and Rhythm Respiratory: Yes: Regular Gastrointestinal: Yes: Normal Bowel Sounds Musculoskeletal: Yes: WNL Extremities: Yes: WNL Edema: No Peripheral Pulses: Left Doralis Pedis: 1+, Right Dorsalis Pedis: 1+ Neurological: Yes: Alert (responds to touch and her name) Labs: CBC, BMP 05/23/17 06:10 05/23/17 06:10 INR, PTT INR 1.15 (0.82-1.09) H 05/22/17 01:45 Problem List - Problems (1) CHF (congestive heart failure) Assessment/Plan: -Congestive changes on CXR Troponin, BNP 05/22/17 16:40 B-Natriuretic Peptide 4386.46 H -seen by cardiology -no diuresis recommended Code(s): I50.9 - HEART FAILURE, UNSPECIFIED Qualifiers: Congestive heart failure type: diastolic Congestive heart failure chronicity: acute on chronic Qualified Code(s): I50.33 - Acute on chronic diastolic (congestive) heart failure (2) Respiratory distress Assessment/Plan: -chronic -mechanical vent -Pulmonary consult Code(s): R06.00 - DYSPNEA, UNSPECIFIED (3) Leukocytosis Assessment/Plan: -sepsis workup -lactic acidosis resolved -seen by ID -IV abx-zosyn -repeat labs today and in AM Microbiology 05/22/17 01:47 Blood Culture - Preliminary Blood - Peripheral Venous NO GROWTH OBTAINED AFTER 48 HOURS, INCUBATION TO CONTINUE FOR 3 DAYS. 05/22/17 00:40 Blood Culture - Preliminary Blood - Peripheral Venous NO GROWTH OBTAINED AFTER 48 HOURS, INCUBATION TO CONTINUE FOR 3 DAYS. 05/22/17 13:00 Gram Stain - Final Sputum - Endotrachea Suction/Ventilator Sputum Culture - Preliminary Lactose Fermenting Neg Bacilli Non Lactose Fermenting Gnb 05/22/17 02:30 Urine Culture - Final Urine - Urine - Catheterized NO GROWTH OBTAINED Code(s): D72.829 - ELEVATED WHITE BLOOD CELL COUNT, UNSPECIFIED (4) Respiratory failure Code(s): J96.90 - RESPIRATORY FAILURE, UNSP, UNSP W HYPOXIA OR HYPERCAPNIA Qualifiers: Chronicity: acute on chronic (5) Ventilator associated pneumonia Assessment/Plan: Microbiology 05/22/17 01:47 Blood Culture - Preliminary Blood - Peripheral Venous NO GROWTH OBTAINED AFTER 48 HOURS, INCUBATION TO CONTINUE FOR 3 DAYS. 05/22/17 00:40 Blood Culture - Preliminary Blood - Peripheral Venous NO GROWTH OBTAINED AFTER 48 HOURS, INCUBATION TO CONTINUE FOR 3 DAYS. 05/22/17 13:00 Gram Stain - Final Sputum - Endotrachea Suction/Ventilator Sputum Culture - Preliminary Lactose Fermenting Neg Bacilli Non Lactose Fermenting Gnb 05/22/17 02:30 Urine Culture - Final Urine - Urine - Catheterized NO GROWTH OBTAINED -n IV abx -seen by ID and pulmonary Code(s): J95.851 - VENTILATOR ASSOCIATED PNEUMONIA Assessment/Plan -continue IV abx -Tylenol for fever over 100.0F -uc and bc negative -sputum culture positive for lactose ferm gram neg bacilli -continue feeds -GI/DVT prophylaxis
[2017-05-24] MEDS: HEPARIN NA (PORCINE) 5,000 UNITS/ML 1ML VIAL SQ SCH ×2 (10:33→21:36)
[2017-05-24] MEDS: PANTOPRAZOLE SOD 40 MG SUSPENSION PACKET GT SCH ×2 (10:33→21:36)
[2017-05-24 11:14] LABS: BASOPHIL 0.1 % (0-2.0); EOSINOPHIL 4.1 % (0-4.5); MCHC 33.5 g/dl (32.0-36.0); MEAN CELL VOLUME 92.7 fl (80-96); MEAN PLT VOLUME 9.6 fl (7.5-11.1); PLATELET COUNT 181 K/MM3 (134-434); RDW 14.2 % (11.6-15.6); WHITE BLOOD COUNT 16.8 K/mm3 (4.0-10.0)
--- NOTE | 2017-05-24 11:51 | PN ---
Progress Note, Physician History of Present Illness: Awake, non-verbal Febrile Sputum c/s mixed E coli, Pseudomas - Current Medication List Current Medications: Active Medications Acetaminophen (Tylenol Oral Solution -) 650 mg PO Q4H PRN PRN Reason: FEVER OR PAIN Albuterol Sulfate (Ventolin 0.083% Nebulizer Soln -) 1 amp NEB Q6HPO TATIANA Last Admin: 05/24/17 11:44 Dose: 1 amp Atorvastatin Calcium (Lipitor -) 10 mg GT HS TATIANA Last Admin: 05/23/17 22:59 Dose: 10 mg Diltiazem HCl (Cardizem -) 60 mg PO Q6HPO TATIANA Last Admin: 05/24/17 06:08 Dose: 60 mg Heparin Sodium (Porcine) (Heparin -) 5,000 unit SQ BID TATIANA Last Admin: 05/24/17 10:33 Dose: 5,000 unit Piperacillin Sod/Tazobactam Sod (Zosyn 3.375gm Ivpb (Pre-Docked)) 50 mls @ 100 mls/hr IVPB Q8H-IV TATIANA PRN Reason: Protocol Last Admin: 05/24/17 10:33 Dose: 100 mls/hr Ipratropium [place] (Atrovent 0.02% Nebulizer -) 1 amp NEB Q6HPO TATIANA Last Admin: 05/24/17 11:43 Dose: 1 amp Levothyroxine Sodium (Synthroid -) 88 mcg GT ACBK TATIANA Last Admin: 05/24/17 06:08 Dose: 88 mcg Metoclopramide HCl (Reglan -) 10 mg PO Q6HPO TATIANA Last Admin: 05/24/17 06:08 Dose: 10 mg Pantoprazole Sodium (Protonix Packets For Oral Suspension -) 40 mg GT BID TATIANA Last Admin: 05/24/17 10:33 Dose: 40 mg Sodium Chloride (Normal Saline -) 250 ml IV Q20M PRN PRN Reason: MAP<65mm Hg OR SBP <90 Last Admin: 05/22/17 06:52 Dose: 250 ml - Objective Vital Signs: Vital Signs Temperature 100.4 F H 05/24/17 10:00 Pulse Rate 108 H 05/24/17 10:00 Respiratory Rate 16 05/24/17 10:00 Blood Pressure 146/77 05/24/17 10:00 O2 Sat by Pulse Oximetry (%) 94 L 05/24/17 09:49 Constitutional: Yes: No Distress, Obese Eyes: Yes: Conjunctiva Clear Cardiovascular: Yes: Regular Rate and Rhythm, S1, S2 Respiratory: Yes: Mechanically Ventilated Gastrointestinal: Yes: Normal Bowel Sounds, Soft. No: Tenderness Edema: Yes Labs: CBC, BMP 05/24/17 10:45 INR, PTT INR 1.15 (0.82-1.09) H 05/22/17 01:45 Assessment/Plan Ventilator associated pneumonia Sepsis secondary to pneumonia Chronic respiratory failure Fever/leukocytosis Lactic acidosis- resolved Continue zosyn Ventilatory support
--- NOTE | 2017-05-24 12:02 | PN ---
Progress Note, Physician History of Present Illness: pulmonary no change, unresponsive on vent support ac mode,febrile - Current Medication List Current Medications: Active Medications Acetaminophen (Tylenol Oral Solution -) 650 mg PO Q4H PRN PRN Reason: FEVER OR PAIN Albuterol Sulfate (Ventolin 0.083% Nebulizer Soln -) 1 amp NEB Q6HPO TATIANA Last Admin: 05/24/17 11:44 Dose: 1 amp Atorvastatin Calcium (Lipitor -) 10 mg GT HS [facility] Last Admin: 05/23/17 22:59 Dose: 10 mg Diltiazem HCl (Cardizem -) 60 mg PO Q6HPO TATIANA Last Admin: 05/24/17 06:08 Dose: 60 mg Heparin Sodium (Porcine) (Heparin -) 5,000 unit SQ BID TATIANA Last Admin: 05/24/17 10:33 Dose: 5,000 unit Piperacillin Sod/Tazobactam Sod (Zosyn 3.375gm Ivpb (Pre-Docked)) 50 mls @ 100 mls/hr IVPB Q8H-IV TATIANA PRN Reason: Protocol Last Admin: 05/24/17 10:33 Dose: 100 mls/hr Ipratropium [place] (Atrovent 0.02% Nebulizer -) 1 amp NEB Q6HPO TATIANA Last Admin: 05/24/17 11:43 Dose: 1 amp Levothyroxine Sodium (Synthroid -) 88 mcg GT ACBK TATIANA Last Admin: 05/24/17 06:08 Dose: 88 mcg Metoclopramide HCl (Reglan -) 10 mg PO Q6HPO TATIANA Last Admin: 05/24/17 06:08 Dose: 10 mg Pantoprazole Sodium (Protonix Packets For Oral Suspension -) 40 mg GT BID [facility] Last Admin: 05/24/17 10:33 Dose: 40 mg Sodium Chloride (Normal Saline -) 250 ml IV Q20M PRN PRN Reason: MAP<65mm Hg OR SBP <90 Last Admin: 05/22/17 06:52 Dose: 250 ml - Objective Vital Signs: Vital Signs Temperature 100.4 F H 05/24/17 10:00 Pulse Rate 108 H 05/24/17 10:00 Respiratory Rate 16 05/24/17 10:00 Blood Pressure 146/77 05/24/17 10:00 O2 Sat by Pulse Oximetry (%) 94 L 05/24/17 09:49 Constitutional: Yes: Well Nourished, Other (unresponsive) Eyes: Yes: WNL HENT: Yes: WNL Neck: Yes: Supple (trach) Cardiovascular: Yes: Pulse Irregular, S1, S2 Respiratory: Yes: Rhonchi (bilateral rhonchi) Gastrointestinal: Yes: Normal Bowel Sounds, Soft Extremities: Yes: Other (contracted) Edema: No Labs: CBC, BMP 05/24/17 10:45 INR, PTT INR 1.15 (0.82-1.09) H 05/22/17 01:45 Problem List - Problems (1) Atrial fibrillation Code(s): I48.91 - UNSPECIFIED ATRIAL FIBRILLATION Qualifiers: Atrial fibrillation type: unspecified Qualified Code(s): I48.91 - Unspecified atrial fibrillation (2) Fever Code(s): R50.9 - FEVER, UNSPECIFIED Qualifiers: Fever type: due to other condition Qualified Code(s): R50.81 - Fever presenting with conditions classified elsewhere (3) Ventilator associated pneumonia Code(s): J95.851 - VENTILATOR ASSOCIATED PNEUMONIA (4) CVA (cerebral infarction) Code(s): I63.9 - CEREBRAL INFARCTION, UNSPECIFIED (5) HTN (hypertension) Code(s): I10 - ESSENTIAL (PRIMARY) HYPERTENSION (6) Obesity Code(s): E66.9 - OBESITY, UNSPECIFIED (7) Chronic respiratory failure Code(s): J96.10 - CHRONIC RESPIRATORY FAILURE, UNSP W HYPOXIA OR HYPERCAPNIA Assessment/Plan A/P Chronic Respiratory Failure Ventilator Associated Pneumonia Anoxic Encephalopathy Lactic Acidosis resolved Atrial fibrillation - antibiotics per ID - IVF - enteral feeds - continue volume assist control - not a candidate for weaning at this time due to mental status - DVT/GI prophylaxis DR VALENTINE
[2017-05-24 12:54] LABS: ALBUMIN 2.8 g/dl (3.4-5.0); ALK PHOS 104 U/L (45-117); ANION GAP 11 (8-16); BILIRUBIN,TOTAL 0.3 mg/dL (0.2-1.0); CALCIUM 8.3 mg/dL (8.5-10.1); CO2 27 mmol/L (21-32); CREATININE 0.7 mg/dL (0.55-1.02); GLUCOSE,RANDOM 200 mg/dL (74-106); SGOT/AST 39 U/L (15-37); SGPT/ALT 55 U/L (12-78); TOT PROT 7.7 g/dl (6.4-8.2)
[2017-05-24] MEDS: ATORVASTATIN CA 10 MG TABLET (FP) GT SCH (21:36)
[2017-05-24] MEDS: ACETAMINOPHEN 650 MG/20.3 ML ORAL SOLUTION (CUPS) PO PRN (23:00)
[2017-05-25] MEDS: PIPERACILLIN/TAZOB 3.375 GM 50 ML IVPB SCH ×3 (01:30→17:37)
[2017-05-25] MEDS: dilTIAZem HCL 60 MG TABLET (FP) PO SCH ×4 (05:24→23:49)
[2017-05-25] MEDS: METOCLOPRAMIDE HCL 10 MG TABLET (FP) PO SCH ×4 (05:24→23:50)
[2017-05-25] MEDS: ACETAMINOPHEN 650 MG/20.3 ML ORAL SOLUTION (CUPS) PO PRN ×2 (05:24→14:56)
[2017-05-25] MEDS: LEVOTHYROXINE NA 88 MCG TABLET (FP) GT SCH (06:21)
[2017-05-25] MEDS: IPRATROPIUM BR 0.02% 0.5 MG/2.5 ML VIAL.NEB. NEB SCH ×3 (06:58→18:48)
[2017-05-25] MEDS: ALBUTEROL SO4 0.083% IH SOL 2.5 MG/3 ML VIAL.NEB. NEB SCH ×3 (06:58→18:48)
[2017-05-25 07:46] LABS: BASOPHIL 0.2 % (0-2.0); EOSINOPHIL 3.3 % (0-4.5); MCH 30.8 pg (25.7-33.7); MCHC 33.1 g/dl (32.0-36.0); MEAN CELL VOLUME 93.3 fl (80-96); NEUTROPHILS 84.4 % (42.8-82.8); PLATELET COUNT 187 K/MM3 (134-434); RDW 14.3 % (11.6-15.6); WHITE BLOOD COUNT 21.3 K/mm3 (4.0-10.0)
[2017-05-25 08:20] LABS: ALBUMIN 2.7 g/dl (3.4-5.0); ALK PHOS 125 U/L (45-117); ANION GAP 7 (8-16); BILIRUBIN,TOTAL 0.3 mg/dL (0.2-1.0); CALCIUM 8.8 mg/dL (8.5-10.1); CO2 28 mmol/L (21-32); CREATININE 0.7 mg/dL (0.55-1.02); GLUCOSE,RANDOM 196 mg/dL (74-106); SGOT/AST 53 U/L (15-37); SGPT/ALT 63 U/L (12-78); TOT PROT 7.7 g/dl (6.4-8.2)
[2017-05-25] MEDS ORDERED: PT OWN MED DRAWER 7, Y5N ONE (08:46)
[2017-05-25] MEDS: PANTOPRAZOLE SOD 40 MG SUSPENSION PACKET GT SCH ×2 (11:13→23:50)
[2017-05-25] MEDS: HEPARIN NA (PORCINE) 5,000 UNITS/ML 1ML VIAL SQ SCH ×2 (11:13→23:50)
--- NOTE | 2017-05-25 11:31 | PN ---
Progress Note (short form) - Note Progress Note: PULMONARY Febrile overnight. Vented on volume assist control with 28% FiO2. Pt unresponsive but more tachypneic. Last Vital Signs Temp Pulse Resp BP Pulse Ox 98.9 F 105 H 20 142/80 98 05/25/17 10:00 05/25/17 10:00 05/25/17 10:44 05/25/17 10:00 05/25/17 10:00 Gen: vented, unresponsive, more tachypneic Heart: RRR Lung: scattered rhonchi Abd: soft, nontender Ext: no edema CBC, BMP 05/25/17 06:30 05/25/17 06:30 Active Medications Acetaminophen (Tylenol Oral Solution -) 650 mg PO Q4H PRN PRN Reason: FEVER OR PAIN Last Admin: 05/25/17 05:24 Dose: 650 mg Albuterol Sulfate (Ventolin 0.083% Nebulizer Soln -) 1 amp NEB Q6HPO [place] Last Admin: 05/25/17 11:27 Dose: 1 amp Atorvastatin Calcium (Lipitor -) 10 mg GT HS [place] Last Admin: 05/24/17 21:36 Dose: 10 mg Diltiazem HCl (Cardizem -) 60 mg PO Q6HPO [place] Last Admin: 05/25/17 05:24 Dose: 60 mg Heparin Sodium (Porcine) (Heparin -) 5,000 unit SQ BID [place] Last Admin: 05/24/17 21:36 Dose: 5,000 unit Piperacillin Sod/Tazobactam Sod (Zosyn 3.375gm Ivpb (Pre-Docked)) 50 mls @ 100 mls/hr IVPB Q8H-IV [place] PRN Reason: Protocol Last Admin: 05/25/17 01:30 Dose: 100 mls/hr Ipratropium [place] (Atrovent 0.02% Nebulizer -) 1 amp NEB Q6HPO [place] Last Admin: 05/25/17 11:27 Dose: 1 amp Levothyroxine Sodium (Synthroid -) 88 mcg GT ACBK [place] Last Admin: 05/25/17 06:21 Dose: 88 mcg Metoclopramide HCl (Reglan -) 10 mg PO Q6HPO [place] Last Admin: 05/25/17 05:24 Dose: 10 mg Pantoprazole Sodium (Protonix Packets For Oral Suspension -) 40 mg GT BID [place] Last Admin: 05/24/17 21:36 Dose: 40 mg Sodium Chloride (Normal Saline -) 250 ml IV Q20M PRN PRN Reason: MAP<65mm Hg OR SBP <90 Last Admin: 05/22/17 06:52 Dose: 250 ml A/P Chronic Respiratory Failure Ventilator Associated Pneumonia Anoxic Encephalopathy Lactic Acidosis resolved Atrial fibrillation - repeat CXR - antibiotics per ID - f/u cultures - enteral feeds - continue volume assist control - not a candidate for weaning at this time due to mental status - DVT/GI prophylaxis
--- NOTE | 2017-05-25 14:26 | PN ---
Progress Note, Physician Chief Complaint: THIS IS MY FIRST ENCOUNTER WITH THIS PATIENT LABS/EVENTS/NOTES REVIEWED VENT DEPENDENT - Current Medication List Current Medications: Active Medications Acetaminophen (Tylenol Oral Solution -) 650 mg PO Q4H PRN PRN Reason: FEVER OR PAIN Last Admin: 05/25/17 05:24 Dose: 650 mg Albuterol Sulfate (Ventolin 0.083% Nebulizer Soln -) 1 amp NEB Q6HPO [place] Last Admin: 05/25/17 11:27 Dose: 1 amp Atorvastatin Calcium (Lipitor -) 10 mg GT HS [place] Last Admin: 05/24/17 21:36 Dose: 10 mg Diltiazem HCl (Cardizem -) 60 mg PO Q6HPO [place] Last Admin: 05/25/17 11:16 Dose: 60 mg Heparin Sodium (Porcine) (Heparin -) 5,000 unit SQ BID [place] Last Admin: 05/25/17 11:13 Dose: 5,000 unit Piperacillin Sod/Tazobactam Sod (Zosyn 3.375gm Ivpb (Pre-Docked)) 50 mls @ 100 mls/hr IVPB Q8H-IV [place] PRN Reason: Protocol Last Admin: 05/25/17 11:14 Dose: 100 mls/hr Ipratropium [place] (Atrovent 0.02% Nebulizer -) 1 amp NEB Q6HPO [place] Last Admin: 05/25/17 11:27 Dose: 1 amp Levothyroxine Sodium (Synthroid -) 88 mcg GT ACBK [place] Last Admin: 05/25/17 06:21 Dose: 88 mcg Metoclopramide HCl (Reglan -) 10 mg PO Q6HPO [place] Last Admin: 05/25/17 11:16 Dose: 10 mg Pantoprazole Sodium (Protonix Packets For Oral Suspension -) 40 mg GT BID [place] Last Admin: 05/25/17 11:13 Dose: 40 mg Sodium Chloride (Normal Saline -) 250 ml IV Q20M PRN PRN Reason: MAP<65mm Hg OR SBP <90 Last Admin: 05/22/17 06:52 Dose: 250 ml - Objective Vital Signs: Vital Signs Temperature 98.9 F 05/25/17 10:00 Pulse Rate 105 H 05/25/17 10:00 Respiratory Rate 20 05/25/17 10:44 Blood Pressure 142/80 05/25/17 10:00 O2 Sat by Pulse Oximetry (%) 98 05/25/17 10:00 Constitutional: Yes: Mild Distress Eyes: Yes: WNL HENT: Yes: WNL Neck: Yes: WNL Cardiovascular: Yes: WNL Respiratory: Yes: Mechanically Ventilated Gastrointestinal: Yes: WNL Genitourinary: Yes: Incontinence Musculoskeletal: Yes: Muscle Weakness Edema: Yes Peripheral Pulses WNL: Yes Integumentary: Yes: Pressure Ulcer, Venous Stasis Changes Wound/Incision: Yes: Dressing Dry and Intact, Unapproximated Neurological: Yes: Pre-Existing Deficit ...Motor Strength: LLE, RLE Labs: CBC, BMP 05/25/17 06:30 05/25/17 06:30 INR, PTT INR 1.15 (0.82-1.09) H 05/22/17 01:45 Problem List - Problems (1) Atrial fibrillation Code(s): I48.91 - UNSPECIFIED ATRIAL FIBRILLATION Qualifiers: Atrial fibrillation type: unspecified Qualified Code(s): I48.91 - Unspecified atrial fibrillation (2) Chronic respiratory failure Code(s): J96.10 - CHRONIC RESPIRATORY FAILURE, UNSP W HYPOXIA OR HYPERCAPNIA (3) Dementia Code(s): F03.90 - UNSPECIFIED DEMENTIA WITHOUT BEHAVIORAL DISTURBANCE Qualifiers: Dementia type: unspecified type Dementia behavioral disturbance: without behavioral disturbance Qualified Code(s): F03.90 - Unspecified dementia without behavioral disturbance (4) Leukocytosis Code(s): D72.829 - ELEVATED WHITE BLOOD CELL COUNT, UNSPECIFIED (5) Respiratory distress Code(s): R06.00 - DYSPNEA, UNSPECIFIED (6) Ventilator associated pneumonia Code(s): J95.851 - VENTILATOR ASSOCIATED PNEUMONIA Assessment/Plan VENT DEPENDENT URO/PULM INFECTION ON IV ABX ID F/U
--- NOTE | 2017-05-25 15:16 | PN ---
Progress Note, Physician History of Present Illness: Not responsive on ventilator Persistant fever noted Breathing non-labored Cultures noted - Current Medication List Current Medications: Active Medications Acetaminophen (Tylenol Oral Solution -) 650 mg PO Q4H PRN PRN Reason: FEVER OR PAIN Last Admin: 05/25/17 14:56 Dose: 650 mg Albuterol Sulfate (Ventolin 0.083% Nebulizer Soln -) 1 amp NEB Q6HPO [place] Last Admin: 05/25/17 11:27 Dose: 1 amp Atorvastatin Calcium (Lipitor -) 10 mg GT HS [place] Last Admin: 05/24/17 21:36 Dose: 10 mg Diltiazem HCl (Cardizem -) 60 mg PO Q6HPO [place] Last Admin: 05/25/17 11:16 Dose: 60 mg Heparin Sodium (Porcine) (Heparin -) 5,000 unit SQ BID [place] Last Admin: 05/25/17 11:13 Dose: 5,000 unit Piperacillin Sod/Tazobactam Sod (Zosyn 3.375gm Ivpb (Pre-Docked)) 50 mls @ 100 mls/hr IVPB Q8H-IV [place] PRN Reason: Protocol Last Admin: 05/25/17 11:14 Dose: 100 mls/hr Ipratropium [place] (Atrovent 0.02% Nebulizer -) 1 amp NEB Q6HPO [place] Last Admin: 05/25/17 11:27 Dose: 1 amp Levothyroxine Sodium (Synthroid -) 88 mcg GT ACBK [place] Last Admin: 05/25/17 06:21 Dose: 88 mcg Metoclopramide HCl (Reglan -) 10 mg PO Q6HPO [place] Last Admin: 05/25/17 11:16 Dose: 10 mg Pantoprazole Sodium (Protonix Packets For Oral Suspension -) 40 mg GT BID [place] Last Admin: 05/25/17 11:13 Dose: 40 mg Sodium Chloride (Normal Saline -) 250 ml IV Q20M PRN PRN Reason: MAP<65mm Hg OR SBP <90 Last Admin: 05/22/17 06:52 Dose: 250 ml - Objective Vital Signs: Vital Signs Temperature 101.1 F H 05/25/17 14:50 Pulse Rate 111 H 05/25/17 14:50 Respiratory Rate 22 05/25/17 14:50 Blood Pressure 154/89 05/25/17 14:50 O2 Sat by Pulse Oximetry (%) 98 05/25/17 10:00 Constitutional: Yes: Obese Cardiovascular: Yes: Regular Rate and Rhythm, S1, S2 Respiratory: Yes: Mechanically Ventilated Gastrointestinal: Yes: Normal Bowel Sounds, Soft Edema: Yes Labs: CBC, BMP 05/25/17 06:30 05/25/17 06:30 INR, PTT INR 1.15 (0.82-1.09) H 05/22/17 01:45 Assessment/Plan Ventilator associated pneumonia Sepsis secondary to pneumonia Chronic respiratory failure Fever/leukocytosis Lactic acidosis- resolved Continue zosyn Repeat BC for persistant fever Ventilatory support Discussed with daughter at bedside
[2017-05-25] MEDS: ATORVASTATIN CA 10 MG TABLET (FP) GT SCH (23:50)
[2017-05-26] MEDS: ALBUTEROL SO4 0.083% IH SOL 2.5 MG/3 ML VIAL.NEB. NEB SCH ×4 (00:02→18:25)
[2017-05-26] MEDS: IPRATROPIUM BR 0.02% 0.5 MG/2.5 ML VIAL.NEB. NEB SCH ×4 (00:02→18:24)
[2017-05-26] MEDS: ACETAMINOPHEN 650 MG/20.3 ML ORAL SOLUTION (CUPS) PO PRN ×3 (01:12→22:57)
[2017-05-26] MEDS: PIPERACILLIN/TAZOB 3.375 GM 50 ML IVPB SCH ×2 (02:45→10:57)
[2017-05-26] MEDS: METOCLOPRAMIDE HCL 10 MG TABLET (FP) PO SCH ×4 (06:12→23:02)
[2017-05-26] MEDS: dilTIAZem HCL 60 MG TABLET (FP) PO SCH ×4 (06:12→23:02)
[2017-05-26] MEDS: LEVOTHYROXINE NA 88 MCG TABLET (FP) GT SCH (06:12)
[2017-05-26 08:45] LABS: MCH 30.7 pg (25.7-33.7); MCHC 32.8 g/dl (32.0-36.0); MEAN CELL VOLUME 93.6 fl (80-96); PLATELET COUNT 184 K/MM3 (134-434); RDW 14.5 % (11.6-15.6)
[2017-05-26 09:23] LABS: ANION GAP 7 (8-16); CALCIUM 8.5 mg/dL (8.5-10.1); CO2 32 mmol/L (21-32); GLUCOSE,RANDOM 140 mg/dL (74-106)
[2017-05-26 09:24] LABS: CREATININE 0.7 mg/dL (0.55-1.02)
--- NOTE | 2017-05-26 10:51 | PN ---
Progress Note, Physician History of Present Illness: Remains febrile with elevated WBC Repeat BC obtained Not responsive Breathing non-labored - Current Medication List Current Medications: Active Medications Acetaminophen (Tylenol Oral Solution -) 650 mg PO Q4H PRN PRN Reason: FEVER OR PAIN Last Admin: 05/26/17 01:12 Dose: 650 mg Albuterol Sulfate (Ventolin 0.083% Nebulizer Soln -) 1 amp NEB Q6HPO [place] Last Admin: 05/26/17 06:19 Dose: 1 amp Atorvastatin Calcium (Lipitor -) 10 mg GT HS [place] Last Admin: 05/25/17 23:50 Dose: 10 mg Diltiazem HCl (Cardizem -) 60 mg PO Q6HPO [place] Last Admin: 05/26/17 06:12 Dose: 60 mg Heparin Sodium (Porcine) (Heparin -) 5,000 unit SQ BID [place] Last Admin: 05/25/17 23:50 Dose: 5,000 unit Piperacillin Sod/Tazobactam Sod (Zosyn 3.375gm Ivpb (Pre-Docked)) 50 mls @ 100 mls/hr IVPB Q8H-IV [place] PRN Reason: Protocol Last Admin: 05/26/17 02:45 Dose: 100 mls/hr Ipratropium [place] (Atrovent 0.02% Nebulizer -) 1 amp NEB Q6HPO [place] Last Admin: 05/26/17 06:19 Dose: 1 amp Levothyroxine Sodium (Synthroid -) 88 mcg GT ACBK [place] Last Admin: 05/26/17 06:12 Dose: 88 mcg Metoclopramide HCl (Reglan -) 10 mg PO Q6HPO [place] Last Admin: 05/26/17 06:12 Dose: 10 mg Pantoprazole Sodium (Protonix Packets For Oral Suspension -) 40 mg GT BID [place] Last Admin: 05/25/17 23:50 Dose: 40 mg Sodium Chloride (Normal Saline -) 250 ml IV Q20M PRN PRN Reason: MAP<65mm Hg OR SBP <90 Last Admin: 05/22/17 06:52 Dose: 250 ml - Objective Vital Signs: Vital Signs Temperature 99.9 F H 05/26/17 06:00 Pulse Rate 102 H 05/26/17 06:00 Respiratory Rate 16 05/26/17 10:03 Blood Pressure 154/92 05/26/17 06:00 O2 Sat by Pulse Oximetry (%) 98 05/26/17 09:00 Constitutional: Yes: No Distress, Obese Eyes: Yes: Conjunctiva Clear Cardiovascular: Yes: Regular Rate and Rhythm, S1, S2 Respiratory: Yes: Mechanically Ventilated Gastrointestinal: Yes: Normal Bowel Sounds, Soft, Abdomen, Obese, Other (+ ventral hernia). No: Tenderness Edema: Yes Labs: CBC, BMP 05/26/17 07:45 05/26/17 07:45 INR, PTT INR 1.15 (0.82-1.09) H 05/22/17 01:45 Assessment/Plan Ventilator associated pneumonia Sepsis secondary to pneumonia Chronic respiratory failure Fever/leukocytosis- persists Lactic acidosis- resolved Discontinue zosyn Substitute ceftazidime / vancomycin Repeat BC pending Ventilatory support
[2017-05-26] MEDS: PANTOPRAZOLE SOD 40 MG SUSPENSION PACKET GT SCH ×2 (10:56→22:57)
[2017-05-26] MEDS: HEPARIN NA (PORCINE) 5,000 UNITS/ML 1ML VIAL SQ SCH ×2 (10:56→22:57)
--- NOTE | 2017-05-26 11:03 | PN ---
Progress Note (short form) - Note Progress Note: PULMONARY Persistently febrile overnight. CXR with worsening infiltrates.Vented on volume assist control with 28% FiO2. Pt unresponsive but more tachypneic. Last Vital Signs Temp Pulse Resp BP Pulse Ox 98.9 F 100 H 16 152/90 98 05/26/17 10:00 05/26/17 10:00 05/26/17 10:03 05/26/17 10:00 05/26/17 09:00 Gen: vented, unresponsive, more tachypneic Heart: RRR Lung: scattered rhonchi Abd: soft, nontender Ext: no edema CBC, BMP 05/26/17 07:45 05/26/17 07:45 Active Medications Acetaminophen (Tylenol Oral Solution -) 650 mg PO Q4H PRN PRN Reason: FEVER OR PAIN Last Admin: 05/26/17 01:12 Dose: 650 mg Albuterol Sulfate (Ventolin 0.083% Nebulizer Soln -) 1 amp NEB Q6HPO [place] Last Admin: 05/26/17 06:19 Dose: 1 amp Atorvastatin Calcium (Lipitor -) 10 mg GT HS [place] Last Admin: 05/25/17 23:50 Dose: 10 mg Diltiazem HCl (Cardizem -) 60 mg PO Q6HPO [place] Last Admin: 05/26/17 06:12 Dose: 60 mg Heparin Sodium (Porcine) (Heparin -) 5,000 unit SQ BID [place] Last Admin: 05/26/17 10:56 Dose: 5,000 unit Ceftazidime 1 gm/ Dextrose 100 mls @ 200 mls/hr IVPB Q8H-IV [place] PRN Reason: Protocol Vancomycin HCl 1,000 mg/ (Dextrose) 250 mls @ 200 mls/hr IVPB Q24H [place] Ipratropium [place] (Atrovent 0.02% Nebulizer -) 1 amp NEB Q6HPO [place] Last Admin: 05/26/17 06:19 Dose: 1 amp Levothyroxine Sodium (Synthroid -) 88 mcg GT ACBK [place] Last Admin: 05/26/17 06:12 Dose: 88 mcg Metoclopramide HCl (Reglan -) 10 mg PO Q6HPO [place] Last Admin: 05/26/17 06:12 Dose: 10 mg Pantoprazole Sodium (Protonix Packets For Oral Suspension -) 40 mg GT BID [place] Last Admin: 05/26/17 10:56 Dose: 40 mg Sodium Chloride (Normal Saline -) 250 ml IV Q20M PRN PRN Reason: MAP<65mm Hg OR SBP <90 Last Admin: 05/22/17 06:52 Dose: 250 ml A/P Chronic Respiratory Failure Ventilator Associated Pneumonia Anoxic Encephalopathy Lactic Acidosis resolved Atrial fibrillation - antibiotics per ID - f/u repeat cultures - enteral feeds - continue volume assist control - not a candidate for weaning at this time due to mental status - DVT/GI prophylaxis
--- NOTE | 2017-05-26 12:06 | PN ---
Progress Note, Physician Chief Complaint: awake aphasia VENT DEPENDENT - Current Medication List Current Medications: Active Medications Acetaminophen (Tylenol Oral Solution -) 650 mg PO Q4H PRN PRN Reason: FEVER OR PAIN Last Admin: 05/26/17 01:12 Dose: 650 mg Albuterol Sulfate (Ventolin 0.083% Nebulizer Soln -) 1 amp NEB Q6HPO [place] Last Admin: 05/26/17 12:02 Dose: 1 amp Atorvastatin Calcium (Lipitor -) 10 mg GT HS [facility] Last Admin: 05/25/17 23:50 Dose: 10 mg Diltiazem HCl (Cardizem -) 60 mg PO Q6HPO [place] Last Admin: 05/26/17 06:12 Dose: 60 mg Heparin Sodium (Porcine) (Heparin -) 5,000 unit SQ BID [place] Last Admin: 05/26/17 10:56 Dose: 5,000 unit Ceftazidime 1 gm/ Dextrose 100 mls @ 200 mls/hr IVPB Q8H-IV [place] PRN Reason: Protocol Vancomycin HCl (Vancomycin (Pre-Docked)) 250 mls @ 200 mls/hr IVPB DAILY [place] Ipratropium [place] (Atrovent 0.02% Nebulizer -) 1 amp NEB Q6HPO [place] Last Admin: 05/26/17 12:02 Dose: 1 amp Levothyroxine Sodium (Synthroid -) 88 mcg GT ACBK [place] Last Admin: 05/26/17 06:12 Dose: 88 mcg Metoclopramide HCl (Reglan -) 10 mg PO Q6HPO [place] Last Admin: 05/26/17 06:12 Dose: 10 mg Pantoprazole Sodium (Protonix Packets For Oral Suspension -) 40 mg GT BID [facility] Last Admin: 05/26/17 10:56 Dose: 40 mg Sodium Chloride (Normal Saline -) 250 ml IV Q20M PRN PRN Reason: MAP<65mm Hg OR SBP <90 Last Admin: 05/22/17 06:52 Dose: 250 ml - Objective Vital Signs: Vital Signs Temperature 98.9 F 05/26/17 10:00 Pulse Rate 100 H 05/26/17 10:00 Respiratory Rate 16 05/26/17 10:03 Blood Pressure 152/90 05/26/17 10:00 O2 Sat by Pulse Oximetry (%) 98 05/26/17 09:00 Constitutional: Yes: No Distress Eyes: Yes: WNL HENT: Yes: WNL Neck: Yes: WNL Cardiovascular: Yes: WNL Respiratory: Yes: Mechanically Ventilated Gastrointestinal: Yes: WNL Genitourinary: Yes: Incontinence Musculoskeletal: Yes: Muscle Weakness Extremities: Yes: Other Edema: Yes Peripheral Pulses WNL: Yes Integumentary: Yes: Other Wound/Incision: Yes: Dressing Dry and Intact Neurological: Yes: Pre-Existing Deficit, Unresponsive, Unsteady Gait, Weakness ...Motor Strength: LLE, RLE Psychiatric: Yes: Other Labs: CBC, BMP 05/26/17 07:45 05/26/17 07:45 INR, PTT INR 1.15 (0.82-1.09) H 05/22/17 01:45 Problem List - Problems (1) Atrial fibrillation Code(s): I48.91 - UNSPECIFIED ATRIAL FIBRILLATION Qualifiers: Atrial fibrillation type: unspecified Qualified Code(s): I48.91 - Unspecified atrial fibrillation (2) Chronic respiratory failure Code(s): J96.10 - CHRONIC RESPIRATORY FAILURE, UNSP W HYPOXIA OR HYPERCAPNIA (3) Dementia Code(s): F03.90 - UNSPECIFIED DEMENTIA WITHOUT BEHAVIORAL DISTURBANCE Qualifiers: Dementia type: unspecified type Dementia behavioral disturbance: without behavioral disturbance Qualified Code(s): F03.90 - Unspecified dementia without behavioral disturbance (4) Leukocytosis Code(s): D72.829 - ELEVATED WHITE BLOOD CELL COUNT, UNSPECIFIED (5) Respiratory distress Code(s): R06.00 - DYSPNEA, UNSPECIFIED (6) Ventilator associated pneumonia Code(s): J95.851 - VENTILATOR ASSOCIATED PNEUMONIA Assessment/Plan VENT DEPENDENT URO/PULM INFECTION ON IV ABX ID F/U
[2017-05-26] MEDS: VANCOMYCIN 1 GRAM (PRE-DOCKED) 250 ML IVPB SCH (13:30)
[2017-05-26] MEDS: CEFTAZIDIME PENTAHYDRATE 1 GM in DEXTROSE 5%-WATER - 100 ML IVPB SCH ×2 (13:45→17:51)
[2017-05-26] MEDS: ATORVASTATIN CA 10 MG TABLET (FP) GT SCH (22:57)
[2017-05-27] MEDS: IPRATROPIUM BR 0.02% 0.5 MG/2.5 ML VIAL.NEB. NEB SCH ×4 (00:30→18:46)
[2017-05-27] MEDS: ALBUTEROL SO4 0.083% IH SOL 2.5 MG/3 ML VIAL.NEB. NEB SCH ×4 (00:30→18:46)
[2017-05-27] MEDS: CEFTAZIDIME PENTAHYDRATE 1 GM in DEXTROSE 5%-WATER - 100 ML IVPB SCH ×3 (02:10→17:31)
[2017-05-27] MEDS: ACETAMINOPHEN 650 MG/20.3 ML ORAL SOLUTION (CUPS) PO PRN (04:09)
[2017-05-27] MEDS: dilTIAZem HCL 60 MG TABLET (FP) PO SCH ×3 (06:20→17:27)
[2017-05-27] MEDS: METOCLOPRAMIDE HCL 10 MG TABLET (FP) PO SCH ×3 (06:20→17:27)
[2017-05-27] MEDS: LEVOTHYROXINE NA 88 MCG TABLET (FP) GT SCH (06:20)
--- NOTE | 2017-05-27 09:49 | PN ---
Progress Note, Physician Chief Complaint: BLOODY SPUTUM RESPIRATORY DISTRESS History of Present Illness: Patient comfortable on mechanical vent. Seen by ID and Pulmonary Received IVF, on IV abx Sepsis work up - Current Medication List Current Medications: Active Medications Acetaminophen (Tylenol Oral Solution -) 650 mg PO Q4H PRN PRN Reason: FEVER OR PAIN Last Admin: 05/27/17 04:09 Dose: 650 mg Albuterol Sulfate (Ventolin 0.083% Nebulizer Soln -) 1 amp NEB Q6HPO [place] Last Admin: 05/27/17 06:27 Dose: 1 amp Atorvastatin Calcium (Lipitor -) 10 mg GT HS [place] Last Admin: 05/26/17 22:57 Dose: 10 mg Diltiazem HCl (Cardizem -) 60 mg PO Q6HPO [place] Last Admin: 05/27/17 06:20 Dose: 60 mg Heparin Sodium (Porcine) (Heparin -) 5,000 unit SQ BID [place] Last Admin: 05/26/17 22:57 Dose: 5,000 unit Ceftazidime 1 gm/ Dextrose 100 mls @ 200 mls/hr IVPB Q8H-IV [place] PRN Reason: Protocol Last Admin: 05/27/17 02:10 Dose: 200 mls/hr Vancomycin HCl (Vancomycin (Pre-Docked)) 250 mls @ 200 mls/hr IVPB DAILY [place] Last Admin: 05/26/17 13:30 Dose: 200 mls/hr Ipratropium [place] (Atrovent 0.02% Nebulizer -) 1 amp NEB Q6HPO [place] Last Admin: 05/27/17 06:27 Dose: 1 amp Levothyroxine Sodium (Synthroid -) 88 mcg GT ACBK [place] Last Admin: 05/27/17 06:20 Dose: 88 mcg Metoclopramide HCl (Reglan -) 10 mg PO Q6HPO [place] Last Admin: 05/27/17 06:20 Dose: 10 mg Pantoprazole Sodium (Protonix Packets For Oral Suspension -) 40 mg GT BID [place] Last Admin: 05/26/17 22:57 Dose: 40 mg Sodium Chloride (Normal Saline -) 250 ml IV Q20M PRN PRN Reason: MAP<65mm Hg OR SBP <90 Last Admin: 05/22/17 06:52 Dose: 250 ml - Objective Vital Signs: Vital Signs Temperature 100.4 F H 05/27/17 06:12 Pulse Rate 106 H 05/27/17 06:12 Respiratory Rate 16 05/27/17 06:26 Blood Pressure 149/89 05/27/17 06:12 O2 Sat by Pulse Oximetry (%) 98 05/26/17 09:00 Constitutional: Yes: Well Nourished, No Distress, Calm Cardiovascular: Yes: Regular Rate and Rhythm Respiratory: Yes: Regular, Mechanically Ventilated, Rhonchi (BLL) Gastrointestinal: Yes: Normal Bowel Sounds Genitourinary: Yes: Incontinence Musculoskeletal: Yes: WNL Extremities: Yes: WNL Edema: No Peripheral Pulses WNL: No Peripheral Pulses: Left Doralis Pedis: 1+, Right Dorsalis Pedis: 1+ Neurological: Yes: Aphasia Labs: CBC, BMP 05/26/17 07:45 05/26/17 07:45 INR, PTT INR 1.15 (0.82-1.09) H 05/22/17 01:45 Problem List - Problems (1) CHF (congestive heart failure) Assessment/Plan: -Congestive changes on CXR Troponin, BNP 05/22/17 16:40 B-Natriuretic Peptide 4386.46 H -seen by cardiology -no diuresis recommended Code(s): I50.9 - HEART FAILURE, UNSPECIFIED Qualifiers: Congestive heart failure type: diastolic Congestive heart failure chronicity: acute on chronic Qualified Code(s): I50.33 - Acute on chronic diastolic (congestive) heart failure (2) Respiratory distress Assessment/Plan: -chronic -mechanical vent -Pulmonary consult Code(s): R06.00 - DYSPNEA, UNSPECIFIED (3) Leukocytosis Assessment/Plan: -febrile, tylenol for fever over 100.0 F -seen by ID -IV abx switched to Vancomycin and ceftazidime -repeat BC pending-preliminary negative -repeat labs today and in AM Microbiology 05/22/17 01:47 Blood Culture - Final Blood - Peripheral Venous NO GROWTH AFTER 5 DAYS INCUBATION 05/22/17 00:40 Blood Culture - Final Blood - Peripheral Venous NO GROWTH AFTER 5 DAYS INCUBATION 05/25/17 17:10 Blood Culture - Preliminary Blood - Peripheral Venous NO GROWTH OBTAINED AFTER 24 HOURS, INCUBATION TO CONTINUE FOR 4 DAYS. 05/25/17 17:10 Blood Culture - Preliminary Blood - Peripheral Venous NO GROWTH OBTAINED AFTER 24 HOURS, INCUBATION TO CONTINUE FOR 4 DAYS. Code(s): D72.829 - ELEVATED WHITE BLOOD CELL COUNT, UNSPECIFIED (4) Respiratory failure Code(s): J96.90 - RESPIRATORY FAILURE, UNSP, UNSP W HYPOXIA OR HYPERCAPNIA Qualifiers: Chronicity: acute on chronic (5) Ventilator associated pneumonia Assessment/Plan: Microbiology 05/22/17 01:47 Blood Culture - Preliminary Blood - Peripheral Venous NO GROWTH OBTAINED AFTER 48 HOURS, INCUBATION TO CONTINUE FOR 3 DAYS. 05/22/17 00:40 Blood Culture - Preliminary Blood - Peripheral Venous NO GROWTH OBTAINED AFTER 48 HOURS, INCUBATION TO CONTINUE FOR 3 DAYS. 05/22/17 13:00 Gram Stain - Final Sputum - Endotrachea Suction/Ventilator Sputum Culture - Preliminary Lactose Fermenting Neg Bacilli Non Lactose Fermenting Gnb 05/22/17 02:30 Urine Culture - Final Urine - Urine - Catheterized NO GROWTH OBTAINED -n IV abx -seen by ID and pulmonary -Repeat BC pending Code(s): J95.851 - VENTILATOR ASSOCIATED PNEUMONIA Assessment/Plan -IV abx changed by ID to vancomycin and ceftazidime -Tylenol for fever over 100.0F -repeat bc pending-preliminary negative -sputum culture positive for lactose ferm gram neg bacilli -continue feeds -GI/DVT prophylaxis
[2017-05-27] MEDS ORDERED: PT OWN MED DRAWER 7, Y5N ONE ×2 (10:40→17:30)
[2017-05-27] MEDS: PANTOPRAZOLE SOD 40 MG SUSPENSION PACKET GT SCH (10:49)
[2017-05-27] MEDS: HEPARIN NA (PORCINE) 5,000 UNITS/ML 1ML VIAL SQ SCH (10:49)
[2017-05-27] MEDS: VANCOMYCIN 1 GRAM (PRE-DOCKED) 250 ML IVPB SCH (10:49)
--- NOTE | 2017-05-27 11:56 | PN ---
Progress Note, Physician History of Present Illness: pulmonary poorly responsive on vent support ac mode,febrile - Current Medication List Current Medications: Active Medications Acetaminophen (Tylenol Oral Solution -) 650 mg PO Q4H PRN PRN Reason: FEVER OR PAIN Last Admin: 05/27/17 04:09 Dose: 650 mg Albuterol Sulfate (Ventolin 0.083% Nebulizer Soln -) 1 amp NEB Q6HPO [place] Last Admin: 05/27/17 11:03 Dose: 1 amp Atorvastatin Calcium (Lipitor -) 10 mg GT HS [place] Last Admin: 05/26/17 22:57 Dose: 10 mg Diltiazem HCl (Cardizem -) 60 mg PO Q6HPO [place] Last Admin: 05/27/17 06:20 Dose: 60 mg Heparin Sodium (Porcine) (Heparin -) 5,000 unit SQ BID [facility] Last Admin: 05/27/17 10:49 Dose: 5,000 unit Ceftazidime 1 gm/ Dextrose 100 mls @ 200 mls/hr IVPB Q8H-IV [place] PRN Reason: Protocol Last Admin: 05/27/17 10:49 Dose: 200 mls/hr Vancomycin HCl (Vancomycin (Pre-Docked)) 250 mls @ 200 mls/hr IVPB DAILY [facility] Last Admin: 05/27/17 10:49 Dose: 200 mls/hr Ipratropium [place] (Atrovent 0.02% Nebulizer -) 1 amp NEB Q6HPO [facility] Last Admin: 05/27/17 11:03 Dose: 1 amp Levothyroxine Sodium (Synthroid -) 88 mcg GT ACBK [facility] Last Admin: 05/27/17 06:20 Dose: 88 mcg Metoclopramide HCl (Reglan -) 10 mg PO Q6HPO [facility] Last Admin: 05/27/17 06:20 Dose: 10 mg Pantoprazole Sodium (Protonix Packets For Oral Suspension -) 40 mg GT BID [facility] Last Admin: 05/27/17 10:49 Dose: 40 mg Sodium Chloride (Normal Saline -) 250 ml IV Q20M PRN PRN Reason: MAP<65mm Hg OR SBP <90 Last Admin: 05/22/17 06:52 Dose: 250 ml - Objective Vital Signs: Vital Signs Temperature 98.3 F 05/27/17 10:00 Pulse Rate 96 H 05/27/17 10:00 Respiratory Rate 19 05/27/17 10:00 Blood Pressure 160/88 05/27/17 10:00 O2 Sat by Pulse Oximetry (%) 99 05/27/17 10:00 Constitutional: Yes: Well Nourished, Other (poorly responsive) Eyes: Yes: WNL HENT: Yes: WNL Neck: Yes: Supple (trach) Cardiovascular: Yes: Pulse Irregular, S1, S2 Respiratory: Yes: Rhonchi (scattered rhonchi) Gastrointestinal: Yes: Normal Bowel Sounds, Soft Extremities: Yes: WNL Edema: No Labs: CBC, BMP 05/26/17 07:45 05/26/17 07:45 INR, PTT INR 1.15 (0.82-1.09) H 05/22/17 01:45 Problem List - Problems (1) Atrial fibrillation Code(s): I48.91 - UNSPECIFIED ATRIAL FIBRILLATION Qualifiers: Atrial fibrillation type: unspecified Qualified Code(s): I48.91 - Unspecified atrial fibrillation (2) Fever Code(s): R50.9 - FEVER, UNSPECIFIED Qualifiers: Fever type: due to other condition Qualified Code(s): R50.81 - Fever presenting with conditions classified elsewhere (3) Ventilator associated pneumonia Code(s): J95.851 - VENTILATOR ASSOCIATED PNEUMONIA (4) CVA (cerebral infarction) Code(s): I63.9 - CEREBRAL INFARCTION, UNSPECIFIED (5) HTN (hypertension) Code(s): I10 - ESSENTIAL (PRIMARY) HYPERTENSION (6) Obesity Code(s): E66.9 - OBESITY, UNSPECIFIED (7) Chronic respiratory failure Code(s): J96.10 - CHRONIC RESPIRATORY FAILURE, UNSP W HYPOXIA OR HYPERCAPNIA Assessment/Plan A/P Chronic Respiratory Failure Ventilator Associated Pneumonia Anoxic Encephalopathy Lactic Acidosis resolved Atrial fibrillation - antibiotics per ID - IVF - enteral feeds - continue volume assist control - not a candidate for weaning at this time - DVT/GI prophylaxis DR VALENTINE
--- NOTE | 2017-05-27 16:04 | PN ---
Progress Note, Physician History of Present Illness: Not verbally responsive on ventilator Breathing non-labored + tracheal secretions Remains febrile Repeat BC obtained - Current Medication List Current Medications: Active Medications Acetaminophen (Tylenol Oral Solution -) 650 mg PO Q4H PRN PRN Reason: FEVER OR PAIN Last Admin: 05/27/17 04:09 Dose: 650 mg Albuterol Sulfate (Ventolin 0.083% Nebulizer Soln -) 1 amp NEB Q6HPO TATIANA Last Admin: 05/27/17 11:03 Dose: 1 amp Atorvastatin Calcium (Lipitor -) 10 mg GT HS TATIANA Last Admin: 05/26/17 22:57 Dose: 10 mg Diltiazem HCl (Cardizem -) 60 mg PO Q6HPO TATIANA Last Admin: 05/27/17 12:23 Dose: 60 mg Heparin Sodium (Porcine) (Heparin -) 5,000 unit SQ BID TATIANA Last Admin: 05/27/17 10:49 Dose: 5,000 unit Ceftazidime 1 gm/ Dextrose 100 mls @ 200 mls/hr IVPB Q8H-IV TATIANA PRN Reason: Protocol Last Admin: 05/27/17 10:49 Dose: 200 mls/hr Vancomycin HCl (Vancomycin (Pre-Docked)) 250 mls @ 200 mls/hr IVPB DAILY TATIANA Last Admin: 05/27/17 10:49 Dose: 200 mls/hr Ipratropium [place] (Atrovent 0.02% Nebulizer -) 1 amp NEB Q6HPO TATIANA Last Admin: 05/27/17 11:03 Dose: 1 amp Levothyroxine Sodium (Synthroid -) 88 mcg GT ACBK TATIANA Last Admin: 05/27/17 06:20 Dose: 88 mcg Metoclopramide HCl (Reglan -) 10 mg PO Q6HPO TATIANA Last Admin: 05/27/17 12:23 Dose: 10 mg Pantoprazole Sodium (Protonix Packets For Oral Suspension -) 40 mg GT BID TATIANA Last Admin: 05/27/17 10:49 Dose: 40 mg Sodium Chloride (Normal Saline -) 250 ml IV Q20M PRN PRN Reason: MAP<65mm Hg OR SBP <90 Last Admin: 05/22/17 06:52 Dose: 250 ml - Objective Vital Signs: Vital Signs Temperature 99.1 F 05/27/17 14:45 Pulse Rate 107 H 05/27/17 14:45 Respiratory Rate 16 05/27/17 14:45 Blood Pressure 159/89 05/27/17 14:45 O2 Sat by Pulse Oximetry (%) 99 05/27/17 10:00 Constitutional: Yes: No Distress Eyes: Yes: Conjunctiva Clear Neck: Yes: Trachea Midline Cardiovascular: Yes: Regular Rate and Rhythm, S1, S2 Respiratory: Yes: Mechanically Ventilated Gastrointestinal: Yes: Normal Bowel Sounds, Soft, Abdomen, Obese. No: Tenderness Labs: CBC, BMP 05/26/17 07:45 05/26/17 07:45 INR, PTT INR 1.15 (0.82-1.09) H 05/22/17 01:45 Assessment/Plan Ventilator associated pneumonia Sepsis secondary to pneumonia Chronic respiratory failure Fever/leukocytosis- persists Lactic acidosis- resolved Continue ceftazidime / vancomycin Repeat BC pending Repeat suctioned sputum c/s Ventilatory support
[2017-05-28] MEDS: ALBUTEROL SO4 0.083% IH SOL 2.5 MG/3 ML VIAL.NEB. NEB SCH ×5 (00:14→23:25)
[2017-05-28] MEDS: IPRATROPIUM BR 0.02% 0.5 MG/2.5 ML VIAL.NEB. NEB SCH ×5 (00:14→23:24)
[2017-05-28] MEDS: dilTIAZem HCL 60 MG TABLET (FP) PO SCH ×5 (00:42→23:00)
[2017-05-28] MEDS: ATORVASTATIN CA 10 MG TABLET (FP) GT SCH ×2 (00:42→23:00)
[2017-05-28] MEDS: METOCLOPRAMIDE HCL 10 MG TABLET (FP) PO SCH ×5 (00:43→23:00)
[2017-05-28] MEDS: HEPARIN NA (PORCINE) 5,000 UNITS/ML 1ML VIAL SQ SCH ×3 (00:43→23:01)
[2017-05-28] MEDS: PANTOPRAZOLE SOD 40 MG SUSPENSION PACKET GT SCH ×3 (00:43→23:01)
[2017-05-28] MEDS: CEFTAZIDIME PENTAHYDRATE 1 GM in DEXTROSE 5%-WATER - 100 ML IVPB SCH ×3 (02:42→17:30)
[2017-05-28] MEDS: LEVOTHYROXINE NA 88 MCG TABLET (FP) GT SCH (06:57)
[2017-05-28] MEDS: ACETAMINOPHEN 650 MG/20.3 ML ORAL SOLUTION (CUPS) PO PRN ×2 (06:57→17:10)
[2017-05-28] MEDS ORDERED: PT OWN MED DRAWER 7, Y5N ONE ×2 (09:48→17:05)
[2017-05-28] MEDS: VANCOMYCIN 1 GRAM (PRE-DOCKED) 250 ML IVPB SCH (11:19)
[2017-05-28 11:38] LABS: MCH 30.7 pg (25.7-33.7); MCHC 33.2 g/dl (32.0-36.0); MEAN CELL VOLUME 92.6 fl (80-96); MEAN PLT VOLUME 9.7 fl (7.5-11.1); RDW 14.6 % (11.6-15.6); WHITE BLOOD COUNT 15.6 K/mm3 (4.0-10.0)
--- NOTE | 2017-05-28 11:42 | PN ---
Progress Note, Physician History of Present Illness: pulmonary no change,poorly responsive on vent support ac mode - Current Medication List Current Medications: Active Medications Acetaminophen (Tylenol Oral Solution -) 650 mg PO Q4H PRN PRN Reason: FEVER OR PAIN Last Admin: 05/28/17 06:57 Dose: 650 mg Albuterol Sulfate (Ventolin 0.083% Nebulizer Soln -) 1 amp NEB Q6HPO TATIANA Last Admin: 05/28/17 11:00 Dose: 1 amp Atorvastatin Calcium (Lipitor -) 10 mg GT HS TATIANA Last Admin: 05/28/17 00:42 Dose: 10 mg Diltiazem HCl (Cardizem -) 60 mg PO Q6HPO TATIANA Last Admin: 05/28/17 06:57 Dose: 60 mg Heparin Sodium (Porcine) (Heparin -) 5,000 unit SQ BID TATIANA Last Admin: 05/28/17 09:50 Dose: 5,000 unit Ceftazidime 1 gm/ Dextrose 100 mls @ 200 mls/hr IVPB Q8H-IV TATIANA PRN Reason: Protocol Last Admin: 05/28/17 09:49 Dose: 200 mls/hr Vancomycin HCl (Vancomycin (Pre-Docked)) 250 mls @ 200 mls/hr IVPB DAILY TATIANA Last Admin: 05/28/17 11:19 Dose: 200 mls/hr Ipratropium [place] (Atrovent 0.02% Nebulizer -) 1 amp NEB Q6HPO TATIANA Last Admin: 05/28/17 11:00 Dose: 1 amp Levothyroxine Sodium (Synthroid -) 88 mcg GT ACBK TATIANA Last Admin: 05/28/17 06:57 Dose: 88 mcg Metoclopramide HCl (Reglan -) 10 mg PO Q6HPO TATIANA Last Admin: 05/28/17 06:57 Dose: 10 mg Pantoprazole Sodium (Protonix Packets For Oral Suspension -) 40 mg GT BID TATIANA Last Admin: 05/28/17 09:49 Dose: 40 mg Sodium Chloride (Normal Saline -) 250 ml IV Q20M PRN PRN Reason: MAP<65mm Hg OR SBP <90 Last Admin: 05/22/17 06:52 Dose: 250 ml - Objective Vital Signs: Vital Signs Temperature 98.8 F 05/28/17 10:00 Pulse Rate 88 05/28/17 10:00 Respiratory Rate 16 05/28/17 10:00 Blood Pressure 126/62 05/28/17 10:00 O2 Sat by Pulse Oximetry (%) 95 05/28/17 09:40 Constitutional: Yes: Well Nourished, Other (poorly responsive) Eyes: Yes: WNL HENT: Yes: WNL Neck: Yes: Supple (trach) Cardiovascular: Yes: Pulse Irregular, S1, S2 Respiratory: Yes: Rhonchi (few rhonchi) Gastrointestinal: Yes: Normal Bowel Sounds, Soft Extremities: Yes: Other (contracted upper ext) Edema: No Labs: INR, PTT INR 1.15 (0.82-1.09) H 05/22/17 01:45 Problem List - Problems (1) Atrial fibrillation Code(s): I48.91 - UNSPECIFIED ATRIAL FIBRILLATION Qualifiers: Atrial fibrillation type: unspecified Qualified Code(s): I48.91 - Unspecified atrial fibrillation (2) Fever Code(s): R50.9 - FEVER, UNSPECIFIED Qualifiers: Fever type: due to other condition Qualified Code(s): R50.81 - Fever presenting with conditions classified elsewhere (3) Ventilator associated pneumonia Code(s): J95.851 - VENTILATOR ASSOCIATED PNEUMONIA (4) CVA (cerebral infarction) Code(s): I63.9 - CEREBRAL INFARCTION, UNSPECIFIED (5) HTN (hypertension) Code(s): I10 - ESSENTIAL (PRIMARY) HYPERTENSION (6) Obesity Code(s): E66.9 - OBESITY, UNSPECIFIED (7) Chronic respiratory failure Code(s): J96.10 - CHRONIC RESPIRATORY FAILURE, UNSP W HYPOXIA OR HYPERCAPNIA Assessment/Plan A/P Chronic Respiratory Failure Ventilator Associated Pneumonia Anoxic Encephalopathy Lactic Acidosis resolved Atrial fibrillation - antibiotics per ID - IVF - enteral feeds - continue volume assist control - not a candidate for weaning at this time - DVT/GI prophylaxis DR VALENTINE
[2017-05-28 12:11] LABS: ALBUMIN 2.6 g/dl (3.4-5.0); ANION GAP 8 (8-16); BILIRUBIN,TOTAL 0.2 mg/dL (0.2-1.0); CALCIUM 8.7 mg/dL (8.5-10.1); CO2 30 mmol/L (21-32); CREATININE 0.7 mg/dL (0.55-1.02); GLUCOSE,RANDOM 140 mg/dL (74-106); SGOT/AST 36 U/L (15-37); SGPT/ALT 58 U/L (12-78)
[2017-05-28 12:14] LABS: ALK PHOS 116 U/L (45-117)
[2017-05-28 14:04] LABS: PLATELET COUNT 240 K/MM3 (134-434)
[2017-05-28 14:05] LABS: PLATELET ESTIMATE ADEQUATE (NORMAL)
[2017-05-28 14:09] LABS: METAMYELOCYTE 3 % (0-2)
--- NOTE | 2017-05-28 14:24 | PN ---
Progress Note, Physician History of Present Illness: Eyes closed Not verbally responsive Temps down Afebrile WBC improved - Current Medication List Current Medications: Active Medications Acetaminophen (Tylenol Oral Solution -) 650 mg PO Q4H PRN PRN Reason: FEVER OR PAIN Last Admin: 05/28/17 06:57 Dose: 650 mg Albuterol Sulfate (Ventolin 0.083% Nebulizer Soln -) 1 amp NEB Q6HPO TAT[place]NA Last Admin: 05/28/17 11:00 Dose: 1 amp Atorvastatin Calcium (Lipitor -) 10 mg GT HS TATIANA Last Admin: 05/28/17 00:42 Dose: 10 mg Diltiazem HCl (Cardizem -) 60 mg PO Q6HPO TATIANA Last Admin: 05/28/17 12:56 Dose: 60 mg Heparin Sodium (Porcine) (Heparin -) 5,000 unit SQ BID TATIANA Last Admin: 05/28/17 09:50 Dose: 5,000 unit Ceftazidime 1 gm/ Dextrose 100 mls @ 200 mls/hr IVPB Q8H-IV TAT[place]NA PRN Reason: Protocol Last Admin: 05/28/17 09:49 Dose: 200 mls/hr Vancomycin HCl (Vancomycin (Pre-Docked)) 250 mls @ 200 mls/hr IVPB DAILY TATIANA Last Admin: 05/28/17 11:19 Dose: 200 mls/hr Ipratropium [place] (Atrovent 0.02% Nebulizer -) 1 amp NEB Q6HPO TAT[place]NA Last Admin: 05/28/17 11:00 Dose: 1 amp Levothyroxine Sodium (Synthroid -) 88 mcg GT ACBK TAT[place]NA Last Admin: 05/28/17 06:57 Dose: 88 mcg Metoclopramide HCl (Reglan -) 10 mg PO Q6HPO TATIANA Last Admin: 05/28/17 12:56 Dose: 10 mg Pantoprazole Sodium (Protonix Packets For Oral Suspension -) 40 mg GT BID TATIANA Last Admin: 05/28/17 09:49 Dose: 40 mg Sodium Chloride (Normal Saline -) 250 ml IV Q20M PRN PRN Reason: MAP<65mm Hg OR SBP <90 Last Admin: 05/22/17 06:52 Dose: 250 ml - Objective Vital Signs: Vital Signs Temperature 98.8 F 05/28/17 10:00 Pulse Rate 88 05/28/17 10:00 Respiratory Rate 15 05/28/17 14:15 Blood Pressure 126/62 05/28/17 10:00 O2 Sat by Pulse Oximetry (%) 95 05/28/17 09:40 Constitutional: Yes: No Distress Eyes: Yes: Conjunctiva Clear Cardiovascular: Yes: Regular Rate and Rhythm, S1, S2 Respiratory: Yes: Diminished Gastrointestinal: Yes: Normal Bowel Sounds, Soft, Abdomen, Obese. No: Tenderness Edema: Yes Labs: CBC, BMP 05/28/17 11:30 05/28/17 11:30 INR, PTT INR 1.15 (0.82-1.09) H 05/22/17 01:45 Assessment/Plan Ventilator associated pneumonia Sepsis secondary to pneumonia Chronic respiratory failure Fever/leukocytosis- improved Lactic acidosis- resolved Continue ceftazidime / vancomycin Repeat BC no growth Repeat suctioned sputum c/s Ventilatory support
--- NOTE | 2017-05-28 17:36 | PN ---
Progress Note, Physician Chief Complaint: BLOODY SPUTUM RESPIRATORY DISTRESS History of Present Illness: Patient comfortable on mechanical vent. Seen by ID and Pulmonary Received IVF, on IV abx WBC improved - Current Medication List Current Medications: Active Medications Acetaminophen (Tylenol Oral Solution -) 650 mg PO Q4H PRN PRN Reason: FEVER OR PAIN Last Admin: 05/28/17 17:10 Dose: 650 mg Albuterol Sulfate (Ventolin 0.083% Nebulizer Soln -) 1 amp NEB Q6HPO TATIANA Last Admin: 05/28/17 11:00 Dose: 1 amp Atorvastatin Calcium (Lipitor -) 10 mg GT HS TATIANA Last Admin: 05/28/17 00:42 Dose: 10 mg Diltiazem HCl (Cardizem -) 60 mg PO Q6HPO TATIANA Last Admin: 05/28/17 17:09 Dose: 60 mg Heparin Sodium (Porcine) (Heparin -) 5,000 unit SQ BID TATIANA Last Admin: 05/28/17 09:50 Dose: 5,000 unit Ceftazidime 1 gm/ Dextrose 100 mls @ 200 mls/hr IVPB Q8H-IV TATIANA PRN Reason: Protocol Last Admin: 05/28/17 17:30 Dose: 200 mls/hr Vancomycin HCl (Vancomycin (Pre-Docked)) 250 mls @ 200 mls/hr IVPB DAILY TATIANA Last Admin: 05/28/17 11:19 Dose: 200 mls/hr Ipratropium [place] (Atrovent 0.02% Nebulizer -) 1 amp NEB Q6HPO TATIANA Last Admin: 05/28/17 11:00 Dose: 1 amp Levothyroxine Sodium (Synthroid -) 88 mcg GT ACBK TATIANA Last Admin: 05/28/17 06:57 Dose: 88 mcg Metoclopramide HCl (Reglan -) 10 mg PO Q6HPO TATIANA Last Admin: 05/28/17 17:09 Dose: 10 mg Pantoprazole Sodium (Protonix Packets For Oral Suspension -) 40 mg GT BID TATIANA Last Admin: 05/28/17 09:49 Dose: 40 mg Sodium Chloride (Normal Saline -) 250 ml IV Q20M PRN PRN Reason: MAP<65mm Hg OR SBP <90 Last Admin: 05/22/17 06:52 Dose: 250 ml - Objective Vital Signs: Vital Signs Temperature 100.1 F H 05/28/17 14:39 Pulse Rate 92 H 05/28/17 14:39 Respiratory Rate 17 05/28/17 14:39 Blood Pressure 162/84 05/28/17 14:39 O2 Sat by Pulse Oximetry (%) 95 05/28/17 09:40 Constitutional: Yes: Well Nourished, No Distress, Calm Cardiovascular: Yes: Regular Rate and Rhythm Respiratory: Yes: Regular Gastrointestinal: Yes: Normal Bowel Sounds Musculoskeletal: Yes: WNL Extremities: Yes: WNL Edema: No Peripheral Pulses WNL: Yes Neurological: Yes: Aphasia Labs: CBC, BMP 05/28/17 11:30 05/28/17 11:30 INR, PTT INR 1.15 (0.82-1.09) H 05/22/17 01:45 Problem List - Problems (1) CHF (congestive heart failure) Assessment/Plan: -Congestive changes on CXR Troponin, BNP 05/22/17 16:40 B-Natriuretic Peptide 4386.46 H -seen by cardiology -no diuresis recommended Code(s): I50.9 - HEART FAILURE, UNSPECIFIED Qualifiers: Congestive heart failure type: diastolic Congestive heart failure chronicity: acute on chronic Qualified Code(s): I50.33 - Acute on chronic diastolic (congestive) heart failure (2) Respiratory distress Assessment/Plan: -chronic -mechanical vent -Pulmonary consult Code(s): R06.00 - DYSPNEA, UNSPECIFIED (3) Leukocytosis Assessment/Plan: -febrile, tylenol for fever over 100.0 F -WBC improved -seen by ID -IV abx switched to Vancomycin and ceftazidime -repeat BC pending-preliminary negative -repeat labs today and in AM Microbiology 05/22/17 01:47 Blood Culture - Final Blood - Peripheral Venous NO GROWTH AFTER 5 DAYS INCUBATION 05/22/17 00:40 Blood Culture - Final Blood - Peripheral Venous NO GROWTH AFTER 5 DAYS INCUBATION 05/25/17 17:10 Blood Culture - Preliminary Blood - Peripheral Venous NO GROWTH OBTAINED AFTER 24 HOURS, INCUBATION TO CONTINUE FOR 4 DAYS. 05/25/17 17:10 Blood Culture - Preliminary Blood - Peripheral Venous NO GROWTH OBTAINED AFTER 24 HOURS, INCUBATION TO CONTINUE FOR 4 DAYS. Code(s): D72.829 - ELEVATED WHITE BLOOD CELL COUNT, UNSPECIFIED (4) Respiratory failure Code(s): J96.90 - RESPIRATORY FAILURE, UNSP, UNSP W HYPOXIA OR HYPERCAPNIA Qualifiers: Chronicity: acute on chronic (5) Ventilator associated pneumonia Assessment/Plan: Microbiology 05/22/17 01:47 Blood Culture - Preliminary Blood - Peripheral Venous NO GROWTH OBTAINED AFTER 48 HOURS, INCUBATION TO CONTINUE FOR 3 DAYS. 05/22/17 00:40 Blood Culture - Preliminary Blood - Peripheral Venous NO GROWTH OBTAINED AFTER 48 HOURS, INCUBATION TO CONTINUE FOR 3 DAYS. 05/22/17 13:00 Gram Stain - Final Sputum - Endotrachea Suction/Ventilator Sputum Culture - Preliminary Lactose Fermenting Neg Bacilli Non Lactose Fermenting Gnb 05/22/17 02:30 Urine Culture - Final Urine - Urine - Catheterized NO GROWTH OBTAINED -n IV abx -seen by ID and pulmonary -Repeat BC pending Code(s): J95.851 - VENTILATOR ASSOCIATED PNEUMONIA Assessment/Plan -IV abx vancomycin and ceftazidime -Tylenol for fever over 100.0F -repeat bc pending-preliminary negative -sputum culture positive for lactose ferm gram neg bacilli -continue feeds -GI/DVT prophylaxis
[2017-05-29] MEDS ORDERED: PT OWN MED DRAWER 7, Y5N ONE ×3 (02:29→16:56)
[2017-05-29] MEDS: CEFTAZIDIME PENTAHYDRATE 1 GM in DEXTROSE 5%-WATER - 100 ML IVPB SCH ×3 (03:08→18:25)
[2017-05-29] MEDS: METOCLOPRAMIDE HCL 10 MG TABLET (FP) PO SCH ×4 (06:03→23:06)
[2017-05-29] MEDS: dilTIAZem HCL 60 MG TABLET (FP) PO SCH ×4 (06:03→23:05)
[2017-05-29] MEDS: LEVOTHYROXINE NA 88 MCG TABLET (FP) GT SCH (06:04)
[2017-05-29] MEDS: ALBUTEROL SO4 0.083% IH SOL 2.5 MG/3 ML VIAL.NEB. NEB SCH ×4 (06:50→23:11)
[2017-05-29] MEDS: IPRATROPIUM BR 0.02% 0.5 MG/2.5 ML VIAL.NEB. NEB SCH ×4 (06:50→23:11)
[2017-05-29] MEDS: PANTOPRAZOLE SOD 40 MG SUSPENSION PACKET GT SCH ×2 (09:35→23:05)
[2017-05-29] MEDS: HEPARIN NA (PORCINE) 5,000 UNITS/ML 1ML VIAL SQ SCH ×2 (09:37→23:05)
[2017-05-29] MEDS: VANCOMYCIN 1 GRAM (PRE-DOCKED) 250 ML IVPB SCH (12:19)
--- NOTE | 2017-05-29 12:42 | PN ---
Progress Note, Physician History of Present Illness: pulmonary poorly responsive on vent support ac mode - Current Medication List Current Medications: Active Medications Acetaminophen (Tylenol Oral Solution -) 650 mg PO Q4H PRN PRN Reason: FEVER OR PAIN Last Admin: 05/28/17 17:10 Dose: 650 mg Albuterol Sulfate (Ventolin 0.083% Nebulizer Soln -) 1 amp NEB Q6HPO TATIANA Last Admin: 05/29/17 11:55 Dose: 1 amp Atorvastatin Calcium (Lipitor -) 10 mg GT HS TATIANA Last Admin: 05/28/17 23:00 Dose: 10 mg Diltiazem HCl (Cardizem -) 60 mg PO Q6HPO TATIANA Last Admin: 05/29/17 12:19 Dose: 60 mg Ceftazidime 1 gm/ Dextrose 100 mls @ 200 mls/hr IVPB Q8H-IV TATIANA PRN Reason: Protocol Last Admin: 05/29/17 09:35 Dose: 200 mls/hr Vancomycin HCl (Vancomycin (Pre-Docked)) 250 mls @ 200 mls/hr IVPB DAILY TATIANA Last Admin: 05/29/17 12:19 Dose: 200 mls/hr Ipratropium [place] (Atrovent 0.02% Nebulizer -) 1 amp NEB Q6HPO TATIANA Last Admin: 05/29/17 11:55 Dose: 1 amp Levothyroxine Sodium (Synthroid -) 88 mcg GT ACBK TATIANA Last Admin: 05/29/17 06:04 Dose: 88 mcg Metoclopramide HCl (Reglan -) 10 mg PO Q6HPO TATIANA Last Admin: 05/29/17 12:19 Dose: 10 mg Pantoprazole Sodium (Protonix Packets For Oral Suspension -) 40 mg GT BID TATIANA Last Admin: 05/29/17 09:35 Dose: 40 mg Sodium Chloride (Normal Saline -) 250 ml IV Q20M PRN PRN Reason: MAP<65mm Hg OR SBP <90 Last Admin: 05/22/17 06:52 Dose: 250 ml - Objective Vital Signs: Vital Signs Temperature 98.8 F 05/29/17 06:00 Pulse Rate 86 05/29/17 09:43 Respiratory Rate 16 05/29/17 09:42 Blood Pressure 149/79 05/29/17 06:00 O2 Sat by Pulse Oximetry (%) 95 05/29/17 09:43 Constitutional: Yes: Well Nourished Eyes: Yes: WNL HENT: Yes: WNL Neck: Yes: Supple (trach) Cardiovascular: Yes: Pulse Irregular, S1, S2 Respiratory: Yes: Rhonchi Gastrointestinal: Yes: Normal Bowel Sounds, Soft Extremities: Yes: Other (contracted upper ext) Problem List - Problems (1) Atrial fibrillation Code(s): I48.91 - UNSPECIFIED ATRIAL FIBRILLATION Qualifiers: Atrial fibrillation type: unspecified Qualified Code(s): I48.91 - Unspecified atrial fibrillation (2) Fever Code(s): R50.9 - FEVER, UNSPECIFIED Qualifiers: Fever type: due to other condition Qualified Code(s): R50.81 - Fever presenting with conditions classified elsewhere (3) Ventilator associated pneumonia Code(s): J95.851 - VENTILATOR ASSOCIATED PNEUMONIA (4) CVA (cerebral infarction) Code(s): I63.9 - CEREBRAL INFARCTION, UNSPECIFIED (5) HTN (hypertension) Code(s): I10 - ESSENTIAL (PRIMARY) HYPERTENSION (6) Obesity Code(s): E66.9 - OBESITY, UNSPECIFIED (7) Chronic respiratory failure Code(s): J96.10 - CHRONIC RESPIRATORY FAILURE, UNSP W HYPOXIA OR HYPERCAPNIA Assessment/Plan A/P Chronic Respiratory Failure Ventilator Associated Pneumonia Anoxic Encephalopathy Lactic Acidosis resolved Atrial fibrillation - antibiotics per ID - IVF - enteral feeds - continue volume assist control - not a candidate for weaning at this time - DVT/GI prophylaxis DR VALENTINE
--- NOTE | 2017-05-29 12:49 | PN ---
Progress Note, Physician Chief Complaint: BLOODY SPUTUM RESPIRATORY DISTRESS History of Present Illness: Patient comfortable on mechanical vent. Seen by ID and Pulmonary Received IVF, on IV abx WBC improved - Current Medication List Current Medications: Active Medications Acetaminophen (Tylenol Oral Solution -) 650 mg PO Q4H PRN PRN Reason: FEVER OR PAIN Last Admin: 05/28/17 17:10 Dose: 650 mg Albuterol Sulfate (Ventolin 0.083% Nebulizer Soln -) 1 amp NEB Q6HPO TATIANA Last Admin: 05/29/17 11:55 Dose: 1 amp Atorvastatin Calcium (Lipitor -) 10 mg GT HS TATIANA Last Admin: 05/28/17 23:00 Dose: 10 mg Diltiazem HCl (Cardizem -) 60 mg PO Q6HPO TATIANA Last Admin: 05/29/17 12:19 Dose: 60 mg Ceftazidime 1 gm/ Dextrose 100 mls @ 200 mls/hr IVPB Q8H-IV TATIANA PRN Reason: Protocol Last Admin: 05/29/17 09:35 Dose: 200 mls/hr Vancomycin HCl (Vancomycin (Pre-Docked)) 250 mls @ 200 mls/hr IVPB DAILY TATIANA Last Admin: 05/29/17 12:19 Dose: 200 mls/hr Ipratropium [place] (Atrovent 0.02% Nebulizer -) 1 amp NEB Q6HPO TATIANA Last Admin: 05/29/17 11:55 Dose: 1 amp Levothyroxine Sodium (Synthroid -) 88 mcg GT ACBK TATIANA Last Admin: 05/29/17 06:04 Dose: 88 mcg Metoclopramide HCl (Reglan -) 10 mg PO Q6HPO TATIANA Last Admin: 05/29/17 12:19 Dose: 10 mg Pantoprazole Sodium (Protonix Packets For Oral Suspension -) 40 mg GT BID TATIANA Last Admin: 05/29/17 09:35 Dose: 40 mg Sodium Chloride (Normal Saline -) 250 ml IV Q20M PRN PRN Reason: MAP<65mm Hg OR SBP <90 Last Admin: 05/22/17 06:52 Dose: 250 ml - Objective Vital Signs: Vital Signs Temperature 98.8 F 05/29/17 06:00 Pulse Rate 86 05/29/17 09:43 Respiratory Rate 16 05/29/17 09:42 Blood Pressure 149/79 05/29/17 06:00 O2 Sat by Pulse Oximetry (%) 95 05/29/17 09:43 Constitutional: Yes: Well Nourished, No Distress, Calm Cardiovascular: Yes: Regular Rate and Rhythm Respiratory: Yes: Regular, Rhonchi (BLL) Gastrointestinal: Yes: Normal Bowel Sounds Musculoskeletal: Yes: WNL Extremities: Yes: WNL Edema: No Peripheral Pulses WNL: Yes Neurological: Yes: Aphasia Labs: CBC, BMP 05/28/17 11:30 05/28/17 11:30 INR, PTT INR 1.15 (0.82-1.09) H 05/22/17 01:45 Problem List - Problems (1) CHF (congestive heart failure) Assessment/Plan: -Congestive changes on CXR Troponin, BNP 05/22/17 16:40 B-Natriuretic Peptide 4386.46 H -seen by cardiology -no diuresis recommended Code(s): I50.9 - HEART FAILURE, UNSPECIFIED Qualifiers: Congestive heart failure type: diastolic Congestive heart failure chronicity: acute on chronic Qualified Code(s): I50.33 - Acute on chronic diastolic (congestive) heart failure (2) Respiratory distress Assessment/Plan: -chronic -mechanical vent -Pulmonary consult Code(s): R06.00 - DYSPNEA, UNSPECIFIED (3) Leukocytosis Assessment/Plan: -afebrile since last evening, tylenol for fever over 100.0 F -WBC improved -seen by ID -IV abx switched to Vancomycin and ceftazidime -repeat BC negative -repeat sputum culture pending -repeat labs today and in AM Code(s): D72.829 - ELEVATED WHITE BLOOD CELL COUNT, UNSPECIFIED (4) Respiratory failure Assessment/Plan: repeat CXR Code(s): J96.90 - RESPIRATORY FAILURE, UNSP, UNSP W HYPOXIA OR HYPERCAPNIA Qualifiers: Chronicity: acute on chronic (5) Ventilator associated pneumonia Assessment/Plan: Microbiology 05/25/17 17:10 Blood - Peripheral Venous Blood Culture - Preliminary NO GROWTH OBTAINED AFTER 72 HOURS, INCUBATION TO CONTINUE FOR 2 DAYS. 05/25/17 17:10 Blood - Peripheral Venous Blood Culture - Preliminary NO GROWTH OBTAINED AFTER 72 HOURS, INCUBATION TO CONTINUE FOR 2 DAYS. 05/22/17 01:47 Blood - Peripheral Venous Blood Culture - Final NO GROWTH AFTER 5 DAYS INCUBATION 05/22/17 00:40 Blood - Peripheral Venous Blood Culture - Final NO GROWTH AFTER 5 DAYS INCUBATION 05/22/17 13:00 Sputum - Endotrachea Suction/Ventilator Gram Stain - Final 05/22/17 13:00 Sputum - Endotrachea Suction/Ventilator Sputum Culture - Final Escherichia Coli Pseudomonas Aeruginosa 05/22/17 02:30 Urine - Urine - Catheterized Urine Culture - Final NO GROWTH OBTAINED -repeat BC negative -repeat sputum pending -neb tx -repeat CXR Code(s): J95.851 - VENTILATOR ASSOCIATED PNEUMONIA Assessment/Plan -IV abx vancomycin and ceftazidime -Tylenol for fever over 100.0F -repeat bc negative -previous sputum culture positive for lactose ferm gram neg bacilli, repeat pending -continue feeds -GI/DVT prophylaxis -neb tx -repeat CXR
[2017-05-29] MEDS: ATORVASTATIN CA 10 MG TABLET (FP) GT SCH (23:05)
[2017-05-30] MEDS ORDERED: PT OWN MED DRAWER 7, Y5N ONE ×2 (00:47→17:06)
[2017-05-30] MEDS: CEFTAZIDIME PENTAHYDRATE 1 GM in DEXTROSE 5%-WATER - 100 ML IVPB SCH ×3 (02:34→17:06)
[2017-05-30] MEDS: IPRATROPIUM BR 0.02% 0.5 MG/2.5 ML VIAL.NEB. NEB SCH ×4 (06:12→23:16)
[2017-05-30] MEDS: ALBUTEROL SO4 0.083% IH SOL 2.5 MG/3 ML VIAL.NEB. NEB SCH ×4 (06:12→23:16)
[2017-05-30] MEDS: METOCLOPRAMIDE HCL 10 MG TABLET (FP) PO SCH ×4 (06:23→23:20)
[2017-05-30] MEDS: dilTIAZem HCL 60 MG TABLET (FP) PO SCH ×4 (06:23→23:20)
[2017-05-30] MEDS: LEVOTHYROXINE NA 88 MCG TABLET (FP) GT SCH (06:23)
--- NOTE | 2017-05-30 11:07 | PN ---
Progress Note, Physician Chief Complaint: BLOODY SPUTUM RESPIRATORY DISTRESS History of Present Illness: Patient comfortable on mechanical vent. Seen by ID and Pulmonary Received IVF, on IV abx WBC improved - Current Medication List Current Medications: Active Medications Acetaminophen (Tylenol Oral Solution -) 650 mg PO Q4H PRN PRN Reason: FEVER OR PAIN Last Admin: 05/28/17 17:10 Dose: 650 mg Albuterol Sulfate (Ventolin 0.083% Nebulizer Soln -) 1 amp NEB Q6HPO [facility] Last Admin: 05/30/17 06:12 Dose: 1 amp Atorvastatin Calcium (Lipitor -) 10 mg GT HS [facility]NA Last Admin: 05/29/17 23:05 Dose: 10 mg Diltiazem HCl (Cardizem -) 60 mg PO Q6HPO [facility] Last Admin: 05/30/17 06:23 Dose: 60 mg Heparin Sodium (Porcine) (Heparin -) 5,000 unit SQ BID [facility] Last Admin: 05/29/17 23:05 Dose: 5,000 unit Ceftazidime 1 gm/ Dextrose 100 mls @ 200 mls/hr IVPB Q8H-IV [facility]NA PRN Reason: Protocol Last Admin: 05/30/17 02:34 Dose: 200 mls/hr Vancomycin HCl (Vancomycin (Pre-Docked)) 250 mls @ 200 mls/hr IVPB DAILY [facility]NA Last Admin: 05/29/17 12:19 Dose: 200 mls/hr Ipratropium [place] (Atrovent 0.02% Nebulizer -) 1 amp NEB Q6HPO [facility] Last Admin: 05/30/17 06:12 Dose: 1 amp Levothyroxine Sodium (Synthroid -) 88 mcg GT ACBK [facility] Last Admin: 05/30/17 06:23 Dose: 88 mcg Metoclopramide HCl (Reglan -) 10 mg PO Q6HPO [facility] Last Admin: 05/30/17 06:23 Dose: 10 mg Pantoprazole Sodium (Protonix Packets For Oral Suspension -) 40 mg GT BID [facility]NA Last Admin: 05/29/17 23:05 Dose: 40 mg Sodium Chloride (Normal Saline -) 250 ml IV Q20M PRN PRN Reason: MAP<65mm Hg OR SBP <90 Last Admin: 05/22/17 06:52 Dose: 250 ml - Objective Vital Signs: Vital Signs Temperature 98.3 F 05/30/17 05:54 Pulse Rate 86 05/30/17 05:54 Respiratory Rate 14 05/30/17 06:11 Blood Pressure 147/82 05/30/17 05:54 O2 Sat by Pulse Oximetry (%) 98 05/29/17 21:00 Constitutional: Yes: Well Nourished, No Distress, Calm Cardiovascular: Yes: Regular Rate and Rhythm Respiratory: Yes: Regular Gastrointestinal: Yes: Normal Bowel Sounds Edema: No Peripheral Pulses WNL: Yes Neurological: Yes: Aphasia Labs: CBC, BMP 05/28/17 11:30 05/28/17 11:30 INR, PTT INR 1.15 (0.82-1.09) H 05/22/17 01:45 Problem List - Problems (1) CHF (congestive heart failure) Assessment/Plan: -CXR unchanged this am Troponin, BNP 05/22/17 16:40 B-Natriuretic Peptide 4386.46 H -seen by cardiology -no diuresis recommended -IV furosemide 40 mg once Code(s): I50.9 - HEART FAILURE, UNSPECIFIED Qualifiers: Congestive heart failure type: diastolic Congestive heart failure chronicity: acute on chronic Qualified Code(s): I50.33 - Acute on chronic diastolic (congestive) heart failure (2) Respiratory distress Assessment/Plan: -chronic -mechanical vent -Pulmonary consult Code(s): R06.00 - DYSPNEA, UNSPECIFIED (3) Leukocytosis Assessment/Plan: -afebrile since last evening, tylenol for fever over 100.0 F -WBC improved -seen by ID -IV abx switched to Vancomycin and ceftazidime -repeat BC preliminary negative -repeat sputum culture preliminary negative -repeat labs today and in AM Code(s): D72.829 - ELEVATED WHITE BLOOD CELL COUNT, UNSPECIFIED (4) Respiratory failure Assessment/Plan: -repeat CXR unchanged -IV furosemide Code(s): J96.90 - RESPIRATORY FAILURE, UNSP, UNSP W HYPOXIA OR HYPERCAPNIA Qualifiers: Chronicity: acute on chronic (5) Ventilator associated pneumonia Assessment/Plan: Microbiology 05/25/17 17:10 Blood - Peripheral Venous Blood Culture - Preliminary NO GROWTH OBTAINED AFTER 72 HOURS, INCUBATION TO CONTINUE FOR 2 DAYS. 05/25/17 17:10 Blood - Peripheral Venous Blood Culture - Preliminary NO GROWTH OBTAINED AFTER 72 HOURS, INCUBATION TO CONTINUE FOR 2 DAYS. 05/22/17 01:47 Blood - Peripheral Venous Blood Culture - Final NO GROWTH AFTER 5 DAYS INCUBATION 05/22/17 00:40 Blood - Peripheral Venous Blood Culture - Final NO GROWTH AFTER 5 DAYS INCUBATION 05/22/17 13:00 Sputum - Endotrachea Suction/Ventilator Gram Stain - Final 05/22/17 13:00 Sputum - Endotrachea Suction/Ventilator Sputum Culture - Final Escherichia Coli Pseudomonas Aeruginosa 05/22/17 02:30 Urine - Urine - Catheterized Urine Culture - Final NO GROWTH OBTAINED -repeat sputum and preliminary negative -neb tx -repeat CXR unchanged -IV furosemide Code(s): J95.851 - VENTILATOR ASSOCIATED PNEUMONIA Assessment/Plan -IV abx vancomycin and ceftazidime -Tylenol for fever over 100.0F -repeat bc preliminary negative -previous sputum culture positive for lactose ferm gram neg bacilli, repeat preliminary negative -continue feeds -GI/DVT prophylaxis -neb tx -IV furosemide
[2017-05-30] MEDS: VANCOMYCIN 1 GRAM (PRE-DOCKED) 250 ML IVPB SCH (11:24)
[2017-05-30] MEDS: HEPARIN NA (PORCINE) 5,000 UNITS/ML 1ML VIAL SQ SCH ×2 (11:24→22:45)
[2017-05-30] MEDS: PANTOPRAZOLE SOD 40 MG SUSPENSION PACKET GT SCH ×2 (11:25→22:46)
[2017-05-30] MEDS ORDERED: FUROSEMIDE 40 MG/4 ML INJECTABLE VIAL IVPUSH ONE (11:45)
--- NOTE | 2017-05-30 12:07 | PN ---
Progress Note (short form) - Note Progress Note: PULMONARY Fever curve trending down. Vented on volume assist control, unresponsive. Last Vital Signs Temp Pulse Resp BP Pulse Ox 98.3 F 86 14 147/82 98 05/30/17 05:54 05/30/17 05:54 05/30/17 06:11 05/30/17 05:54 05/29/17 21:00 Gen: vented, unresponsive Heart: RRR Lung: scattered rhonchi Abd: soft, nontender Ext: no edema CBC, BMP 05/28/17 11:30 05/28/17 11:30 Active Medications Acetaminophen (Tylenol Oral Solution -) 650 mg PO Q4H PRN PRN Reason: FEVER OR PAIN Last Admin: 05/28/17 17:10 Dose: 650 mg Albuterol Sulfate (Ventolin 0.083% Nebulizer Soln -) 1 amp NEB Q6HPO [place] Last Admin: 05/30/17 06:12 Dose: 1 amp Atorvastatin Calcium (Lipitor -) 10 mg GT HS [facility] Last Admin: 05/29/17 23:05 Dose: 10 mg Diltiazem HCl (Cardizem -) 60 mg PO Q6HPO [place] Last Admin: 05/30/17 11:44 Dose: 60 mg Heparin Sodium (Porcine) (Heparin -) 5,000 unit SQ BID [facility] Last Admin: 05/30/17 11:24 Dose: 5,000 unit Ceftazidime 1 gm/ Dextrose 100 mls @ 200 mls/hr IVPB Q8H-IV [facility] PRN Reason: Protocol Last Admin: 05/30/17 11:24 Dose: 200 mls/hr Vancomycin HCl (Vancomycin (Pre-Docked)) 250 mls @ 200 mls/hr IVPB DAILY [facility] Last Admin: 05/30/17 11:24 Dose: 200 mls/hr Ipratropium [place] (Atrovent 0.02% Nebulizer -) 1 amp NEB Q6HPO [facility] Last Admin: 05/30/17 06:12 Dose: 1 amp Levothyroxine Sodium (Synthroid -) 88 mcg GT ACBK [place] Last Admin: 05/30/17 06:23 Dose: 88 mcg Metoclopramide HCl (Reglan -) 10 mg PO Q6HPO [place] Last Admin: 05/30/17 11:44 Dose: 10 mg Pantoprazole Sodium (Protonix Packets For Oral Suspension -) 40 mg GT BID [place] Last Admin: 05/30/17 11:25 Dose: 40 mg Sodium Chloride (Normal Saline -) 250 ml IV Q20M PRN PRN Reason: MAP<65mm Hg OR SBP <90 Last Admin: 05/22/17 06:52 Dose: 250 ml A/P Chronic Respiratory Failure Ventilator Associated Pneumonia Anoxic Encephalopathy Lactic Acidosis resolved Atrial fibrillation - antibiotics per ID - enteral feeds - continue volume assist control - not a candidate for weaning at this time due to mental status - DVT/GI prophylaxis
--- NOTE | 2017-05-30 16:34 | PN ---
Progress Note, Physician History of Present Illness: Not responsive on ventilator Temps down; afebrile WBC improved - Current Medication List Current Medications: Active Medications Acetaminophen (Tylenol Oral Solution -) 650 mg PO Q4H PRN PRN Reason: FEVER OR PAIN Last Admin: 05/28/17 17:10 Dose: 650 mg Albuterol Sulfate (Ventolin 0.083% Nebulizer Soln -) 1 amp NEB Q6HPO [place] Last Admin: 05/30/17 11:30 Dose: 1 amp Atorvastatin Calcium (Lipitor -) 10 mg GT HS [facility] Last Admin: 05/29/17 23:05 Dose: 10 mg Diltiazem HCl (Cardizem -) 60 mg PO Q6HPO [facility] Last Admin: 05/30/17 11:44 Dose: 60 mg Heparin Sodium (Porcine) (Heparin -) 5,000 unit SQ BID [facility] Last Admin: 05/30/17 11:24 Dose: 5,000 unit Ceftazidime 1 gm/ Dextrose 100 mls @ 200 mls/hr IVPB Q8H-IV [facility] PRN Reason: Protocol Last Admin: 05/30/17 11:24 Dose: 200 mls/hr Vancomycin HCl (Vancomycin (Pre-Docked)) 250 mls @ 200 mls/hr IVPB DAILY [facility] Last Admin: 05/30/17 11:24 Dose: 200 mls/hr Ipratropium [place] (Atrovent 0.02% Nebulizer -) 1 amp NEB Q6HPO [facility] Last Admin: 05/30/17 11:30 Dose: 1 amp Levothyroxine Sodium (Synthroid -) 88 mcg GT ACBK [facility] Last Admin: 05/30/17 06:23 Dose: 88 mcg Metoclopramide HCl (Reglan -) 10 mg PO Q6HPO [facility] Last Admin: 05/30/17 11:44 Dose: 10 mg Pantoprazole Sodium (Protonix Packets For Oral Suspension -) 40 mg GT BID [facility] Last Admin: 05/30/17 11:25 Dose: 40 mg Sodium Chloride (Normal Saline -) 250 ml IV Q20M PRN PRN Reason: MAP<65mm Hg OR SBP <90 Last Admin: 05/22/17 06:52 Dose: 250 ml - Objective Vital Signs: Vital Signs Temperature 98.4 F 05/30/17 14:42 Pulse Rate 83 05/30/17 14:42 Respiratory Rate 14 05/30/17 14:42 Blood Pressure 132/77 05/30/17 14:42 O2 Sat by Pulse Oximetry (%) 100 05/30/17 09:00 Constitutional: Yes: No Distress Cardiovascular: Yes: Regular Rate and Rhythm, S1, S2 Respiratory: Yes: Mechanically Ventilated Gastrointestinal: Yes: Normal Bowel Sounds, Soft. No: Tenderness Edema: Yes Labs: CBC, BMP 05/28/17 11:30 05/28/17 11:30 INR, PTT INR 1.15 (0.82-1.09) H 05/22/17 01:45 Assessment/Plan Ventilator associated pneumonia Sepsis secondary to pneumonia Chronic respiratory failure Fever/leukocytosis- improved Lactic acidosis- resolved Continue ceftazidime / vancomycin Repeat BC no growth Repeat suctioned sputum c/s normal sergio Ventilatory support
[2017-05-30] MEDS: ATORVASTATIN CA 10 MG TABLET (FP) GT SCH (22:46)
[2017-05-31] MEDS ORDERED: PT OWN MED DRAWER 7, Y5N ONE (01:51)
[2017-05-31] MEDS: CEFTAZIDIME PENTAHYDRATE 1 GM in DEXTROSE 5%-WATER - 100 ML IVPB SCH ×2 (02:15→11:23)
[2017-05-31] MEDS: IPRATROPIUM BR 0.02% 0.5 MG/2.5 ML VIAL.NEB. NEB SCH ×4 (06:23→23:02)
[2017-05-31] MEDS: ALBUTEROL SO4 0.083% IH SOL 2.5 MG/3 ML VIAL.NEB. NEB SCH ×4 (06:23→23:02)
[2017-05-31] MEDS: dilTIAZem HCL 60 MG TABLET (FP) PO SCH ×4 (06:28→23:59)
[2017-05-31] MEDS: LEVOTHYROXINE NA 88 MCG TABLET (FP) GT SCH (06:28)
[2017-05-31] MEDS: METOCLOPRAMIDE HCL 10 MG TABLET (FP) PO SCH ×4 (06:28→23:59)
--- NOTE | 2017-05-31 06:40 | HOSP ---
Physical Examination Vital Signs: Vital Signs Temperature 98.9 F 05/31/17 06:34 Pulse Rate 99 H 05/31/17 06:34 Respiratory Rate 20 05/31/17 06:34 Blood Pressure 135/77 05/31/17 06:34 O2 Sat by Pulse Oximetry (%) 99 05/30/17 21:00 Labs: CBC, BMP 05/28/17 11:30 05/28/17 11:30 Hospitalist Encounter Assessment: I was page by the nurse to evaluate the patient Vitals : BP 135/77,HR 99 , RR 16 , 98.9 T , 99 O2 Sat on room air. [place] cath was placed in [employer] [facility] Per DR. Lei request. Visit type - Emergency Visit Emergency Visit: No - New Patient This patient is new to me today: No
[2017-05-31] MEDS ORDERED: INSULIN DETEMIR 100 UNITS/ML MDV SQ ONE (06:48)
--- NOTE | 2017-05-31 11:00 | PN ---
Progress Note, Physician Chief Complaint: BLOODY SPUTUM RESPIRATORY DISTRESS History of Present Illness: Patient comfortable on mechanical vent. Seen by ID and Pulmonary Received IVF, on IV abx WBC improved - Current Medication List Current Medications: Active Medications Acetaminophen (Tylenol Oral Solution -) 650 mg PO Q4H PRN PRN Reason: FEVER OR PAIN Last Admin: 05/28/17 17:10 Dose: 650 mg Albuterol Sulfate (Ventolin 0.083% Nebulizer Soln -) 1 amp NEB Q6HPO [place] Last Admin: 05/31/17 06:23 Dose: 1 amp Atorvastatin Calcium (Lipitor -) 10 mg GT HS [place]NA Last Admin: 05/30/17 22:46 Dose: 10 mg Diltiazem HCl (Cardizem -) 60 mg PO Q6HPO [place] Last Admin: 05/31/17 06:28 Dose: Not Given Heparin Sodium (Porcine) (Heparin -) 5,000 unit SQ BID [facility] Last Admin: 05/30/17 22:45 Dose: 5,000 unit Ceftazidime 1 gm/ Dextrose 100 mls @ 200 mls/hr IVPB Q8H-IV [facility] PRN Reason: Protocol Last Admin: 05/31/17 02:15 Dose: 200 mls/hr Vancomycin HCl (Vancomycin (Pre-Docked)) 250 mls @ 200 mls/hr IVPB DAILY [facility] Last Admin: 05/30/17 11:24 Dose: 200 mls/hr Ipratropium [place] (Atrovent 0.02% Nebulizer -) 1 amp NEB Q6HPO [facility] Last Admin: 05/31/17 06:23 Dose: 1 amp Levothyroxine Sodium (Synthroid -) 88 mcg GT ACBK [facility] Last Admin: 05/31/17 06:28 Dose: Not Given Metoclopramide HCl (Reglan -) 10 mg PO Q6HPO [facility] Last Admin: 05/31/17 06:28 Dose: Not Given Pantoprazole Sodium (Protonix Packets For Oral Suspension -) 40 mg GT BID [facility] Last Admin: 05/30/17 22:46 Dose: 40 mg Sodium Chloride (Normal Saline -) 250 ml IV Q20M PRN PRN Reason: MAP<65mm Hg OR SBP <90 Last Admin: 05/22/17 06:52 Dose: 250 ml - Objective Vital Signs: Vital Signs Temperature 98.9 F 05/31/17 06:34 Pulse Rate 99 H 05/31/17 06:34 Respiratory Rate 37 H 05/31/17 10:31 Blood Pressure 135/77 05/31/17 06:34 O2 Sat by Pulse Oximetry (%) 90 L 05/31/17 10:31 Constitutional: Yes: Well Nourished, No Distress, Calm Cardiovascular: Yes: Regular Rate and Rhythm Respiratory: Yes: Regular Gastrointestinal: Yes: Normal Bowel Sounds Musculoskeletal: Yes: WNL, Joint Stiffness Extremities: Yes: WNL Edema: No Peripheral Pulses WNL: Yes Neurological: Yes: Aphasia Labs: CBC, BMP 05/28/17 11:30 05/28/17 11:30 INR, PTT INR 1.15 (0.82-1.09) H 05/22/17 01:45 Problem List - Problems (1) CHF (congestive heart failure) Assessment/Plan: -repeat CXR was unchanged -IV lasix 40 mg x 1 yesterday -seen by cardiology Code(s): I50.9 - HEART FAILURE, UNSPECIFIED Qualifiers: Congestive heart failure type: diastolic Congestive heart failure chronicity: acute on chronic Qualified Code(s): I50.33 - Acute on chronic diastolic (congestive) heart failure (2) Respiratory distress Assessment/Plan: -chronic -mechanical vent -Pulmonary consult Code(s): R06.00 - DYSPNEA, UNSPECIFIED (3) Leukocytosis Assessment/Plan: -afebrile since last evening, tylenol for fever over 100.0 F repeat labs this AM -seen by ID -IV abx switched to Vancomycin and ceftazidime -repeat BC preliminary negative -repeat sputum culture preliminary negative -repeat labs today and in AM Code(s): D72.829 - ELEVATED WHITE BLOOD CELL COUNT, UNSPECIFIED (4) Respiratory failure Assessment/Plan: -repeat CXR unchanged yesterday Code(s): J96.90 - RESPIRATORY FAILURE, UNSP, UNSP W HYPOXIA OR HYPERCAPNIA Qualifiers: Chronicity: acute on chronic (5) Ventilator associated pneumonia Assessment/Plan: Microbiology 05/25/17 17:10 Blood - Peripheral Venous Blood Culture - Preliminary NO GROWTH OBTAINED AFTER 72 HOURS, INCUBATION TO CONTINUE FOR 2 DAYS. 05/25/17 17:10 Blood - Peripheral Venous Blood Culture - Preliminary NO GROWTH OBTAINED AFTER 72 HOURS, INCUBATION TO CONTINUE FOR 2 DAYS. 05/22/17 01:47 Blood - Peripheral Venous Blood Culture - Final NO GROWTH AFTER 5 DAYS INCUBATION 05/22/17 00:40 Blood - Peripheral Venous Blood Culture - Final NO GROWTH AFTER 5 DAYS INCUBATION 05/22/17 13:00 Sputum - Endotrachea Suction/Ventilator Gram Stain - Final 05/22/17 13:00 Sputum - Endotrachea Suction/Ventilator Sputum Culture - Final Escherichia Coli Pseudomonas Aeruginosa 05/22/17 02:30 Urine - Urine - Catheterized Urine Culture - Final NO GROWTH OBTAINED -repeat sputum and preliminary negative -neb tx -repeat CXR unchanged -repeat labs today Code(s): J95.851 - VENTILATOR ASSOCIATED PNEUMONIA Assessment/Plan -IV abx vancomycin and ceftazidime -Tylenol for fever over 100.0F -repeat bc preliminary negative -previous sputum culture positive for lactose ferm gram neg bacilli, repeat preliminary negative -continue feeds -GI/DVT prophylaxis -neb tx -repeat labs today
[2017-05-31 11:19] LABS: EOSINOPHIL 5.1 % (0-4.5); MCH 30.6 pg (25.7-33.7); MCHC 33.3 g/dl (32.0-36.0); MEAN PLT VOLUME 9.2 fl (7.5-11.1); NEUTROPHILS 56.6 % (42.8-82.8); PLATELET COUNT 288 K/MM3 (134-434); RDW 14.1 % (11.6-15.6); WHITE BLOOD COUNT 13.8 K/mm3 (4.0-10.0)
[2017-05-31] MEDS: PANTOPRAZOLE SOD 40 MG SUSPENSION PACKET GT SCH ×2 (11:24→23:59)
[2017-05-31] MEDS: VANCOMYCIN 1 GRAM (PRE-DOCKED) 250 ML IVPB SCH (11:27)
[2017-05-31] MEDS: HEPARIN NA (PORCINE) 5,000 UNITS/ML 1ML VIAL SQ SCH ×2 (11:29→23:59)
[2017-05-31 11:46] LABS: ALBUMIN 2.8 g/dl (3.4-5.0); ANION GAP 5 (8-16); BILIRUBIN,TOTAL 0.2 mg/dL (0.2-1.0); CALCIUM 8.7 mg/dL (8.5-10.1); CO2 33 mmol/L (21-32); CREATININE 0.7 mg/dL (0.55-1.02); GLUCOSE,RANDOM 114 mg/dL (74-106); SGOT/AST 19 U/L (15-37); SGPT/ALT 32 U/L (12-78)
[2017-05-31 11:49] LABS: ALK PHOS 100 U/L (45-117); TOT PROT 8.2 g/dl (6.4-8.2)
--- NOTE | 2017-05-31 11:52 | PN ---
Progress Note, Physician History of Present Illness: pulmonary no change poorly responsive on vent support ac mode - Current Medication List Current Medications: Active Medications Acetaminophen (Tylenol Oral Solution -) 650 mg PO Q4H PRN PRN Reason: FEVER OR PAIN Last Admin: 05/28/17 17:10 Dose: 650 mg Albuterol Sulfate (Ventolin 0.083% Nebulizer Soln -) 1 amp NEB Q6HPO [place] Last Admin: 05/31/17 06:23 Dose: 1 amp Atorvastatin Calcium (Lipitor -) 10 mg GT HS [place] Last Admin: 05/30/17 22:46 Dose: 10 mg Diltiazem HCl (Cardizem -) 60 mg PO Q6HPO [place] Last Admin: 05/31/17 11:26 Dose: 60 mg Heparin Sodium (Porcine) (Heparin -) 5,000 unit SQ BID [facility] Last Admin: 05/31/17 11:29 Dose: 5,000 unit Ceftazidime 1 gm/ Dextrose 100 mls @ 200 mls/hr IVPB Q8H-IV [facility] PRN Reason: Protocol Last Admin: 05/31/17 11:23 Dose: 200 mls/hr Vancomycin HCl (Vancomycin (Pre-Docked)) 250 mls @ 200 mls/hr IVPB DAILY [facility] Last Admin: 05/31/17 11:27 Dose: 200 mls/hr Ipratropium [place] (Atrovent 0.02% Nebulizer -) 1 amp NEB Q6HPO [facility] Last Admin: 05/31/17 06:23 Dose: 1 amp Levothyroxine Sodium (Synthroid -) 88 mcg GT ACBK [place] Last Admin: 05/31/17 06:28 Dose: Not Given Metoclopramide HCl (Reglan -) 10 mg PO Q6HPO [place] Last Admin: 05/31/17 11:25 Dose: 10 mg Pantoprazole Sodium (Protonix Packets For Oral Suspension -) 40 mg GT BID [place] Last Admin: 05/31/17 11:24 Dose: 40 mg Sodium Chloride (Normal Saline -) 250 ml IV Q20M PRN PRN Reason: MAP<65mm Hg OR SBP <90 Last Admin: 05/22/17 06:52 Dose: 250 ml - Objective Vital Signs: Vital Signs Temperature 98.9 F 05/31/17 06:34 Pulse Rate 99 H 05/31/17 06:34 Respiratory Rate 37 H 05/31/17 10:31 Blood Pressure 135/77 05/31/17 06:34 O2 Sat by Pulse Oximetry (%) 90 L 05/31/17 10:31 Constitutional: Yes: Well Nourished, Other (poorly responsive) Eyes: Yes: WNL HENT: Yes: Nasal Congestion Neck: Yes: WNL Cardiovascular: Yes: Regular Rate and Rhythm, S1, S2 Respiratory: Yes: Rhonchi (scattered tonio rhonchi) Gastrointestinal: Yes: Normal Bowel Sounds, Soft Extremities: Yes: Other (contracted upper ext) Labs: CBC, BMP 05/31/17 11:10 INR, PTT INR 1.15 (0.82-1.09) H 05/22/17 01:45 Problem List - Problems (1) Atrial fibrillation Code(s): I48.91 - UNSPECIFIED ATRIAL FIBRILLATION Qualifiers: Atrial fibrillation type: unspecified Qualified Code(s): I48.91 - Unspecified atrial fibrillation (2) Fever Code(s): R50.9 - FEVER, UNSPECIFIED Qualifiers: Fever type: due to other condition Qualified Code(s): R50.81 - Fever presenting with conditions classified elsewhere (3) Ventilator associated pneumonia Code(s): J95.851 - VENTILATOR ASSOCIATED PNEUMONIA (4) CVA (cerebral infarction) Code(s): I63.9 - CEREBRAL INFARCTION, UNSPECIFIED (5) HTN (hypertension) Code(s): I10 - ESSENTIAL (PRIMARY) HYPERTENSION (6) Obesity Code(s): E66.9 - OBESITY, UNSPECIFIED (7) Chronic respiratory failure Code(s): J96.10 - CHRONIC RESPIRATORY FAILURE, UNSP W HYPOXIA OR HYPERCAPNIA Assessment/Plan A/P Chronic Respiratory Failure Ventilator Associated Pneumonia Anoxic Encephalopathy Lactic Acidosis resolved Atrial fibrillation - antibiotics per ID - IVF - enteral feeds - continue volume assist control - not a candidate for weaning at this time - DVT/GI prophylaxis DR VALENTINE
--- NOTE | 2017-05-31 12:37 | PN ---
Progress Note, Physician History of Present Illness: Reponds to tactile stimulus No acute distress Afebrile WBC remains mildly elevated - Current Medication List Current Medications: Active Medications Acetaminophen (Tylenol Oral Solution -) 650 mg PO Q4H PRN PRN Reason: FEVER OR PAIN Last Admin: 05/28/17 17:10 Dose: 650 mg Albuterol Sulfate (Ventolin 0.083% Nebulizer Soln -) 1 amp NEB Q6HPO [place] Last Admin: 05/31/17 12:00 Dose: 1 amp Atorvastatin Calcium (Lipitor -) 10 mg GT HS [place] Last Admin: 05/30/17 22:46 Dose: 10 mg Diltiazem HCl (Cardizem -) 60 mg PO Q6HPO [place] Last Admin: 05/31/17 11:26 Dose: 60 mg Heparin Sodium (Porcine) (Heparin -) 5,000 unit SQ BID [facility] Last Admin: 05/31/17 11:29 Dose: 5,000 unit Ipratropium [place] (Atrovent 0.02% Nebulizer -) 1 amp NEB Q6HPO [facility] Last Admin: 05/31/17 12:00 Dose: 1 amp Levothyroxine Sodium (Synthroid -) 88 mcg GT ACBK [facility] Last Admin: 05/31/17 06:28 Dose: Not Given Metoclopramide HCl (Reglan -) 10 mg PO Q6HPO [place] Last Admin: 05/31/17 11:25 Dose: 10 mg Pantoprazole Sodium (Protonix Packets For Oral Suspension -) 40 mg GT BID [facility] Last Admin: 05/31/17 11:24 Dose: 40 mg Sodium Chloride (Normal Saline -) 250 ml IV Q20M PRN PRN Reason: MAP<65mm Hg OR SBP <90 Last Admin: 05/22/17 06:52 Dose: 250 ml - Objective Vital Signs: Vital Signs Temperature 98.9 F 05/31/17 06:34 Pulse Rate 90 05/31/17 10:00 Respiratory Rate 37 H 05/31/17 10:31 Blood Pressure 131/90 05/31/17 10:00 O2 Sat by Pulse Oximetry (%) 90 L 05/31/17 10:31 Constitutional: Yes: No Distress Eyes: Yes: Conjunctiva Clear Cardiovascular: Yes: Regular Rate and Rhythm, S1, S2 Respiratory: Yes: Mechanically Ventilated Gastrointestinal: Yes: Normal Bowel Sounds, Soft, Abdomen, Obese. No: Tenderness Edema: Yes Labs: CBC, BMP 05/31/17 11:10 05/31/17 11:10 INR, PTT INR 1.15 (0.82-1.09) H 05/22/17 01:45 Assessment/Plan Ventilator associated pneumonia Sepsis secondary to pneumonia Chronic respiratory failure Fever/leukocytosis- improved Lactic acidosis- resolved Continue ceftazidime aditional 24h, then observe off D/C vancomycin Repeat suctioned sputum c/s normal sergio Ventilatory support
[2017-05-31] MEDS: ATORVASTATIN CA 10 MG TABLET (FP) GT SCH (23:59)
[2017-06-01] MEDS: METOCLOPRAMIDE HCL 10 MG TABLET (FP) PO SCH ×4 (06:44→23:51)
[2017-06-01] MEDS: ALBUTEROL SO4 0.083% IH SOL 2.5 MG/3 ML VIAL.NEB. NEB SCH ×4 (06:45→23:07)
[2017-06-01] MEDS: IPRATROPIUM BR 0.02% 0.5 MG/2.5 ML VIAL.NEB. NEB SCH ×4 (06:45→23:07)
[2017-06-01] MEDS: LEVOTHYROXINE NA 88 MCG TABLET (FP) GT SCH (06:45)
[2017-06-01] MEDS: dilTIAZem HCL 60 MG TABLET (FP) PO SCH ×4 (06:45→23:51)
[2017-06-01] MEDS: PANTOPRAZOLE SOD 40 MG SUSPENSION PACKET GT SCH ×2 (10:54→22:07)
[2017-06-01] MEDS: HEPARIN NA (PORCINE) 5,000 UNITS/ML 1ML VIAL SQ SCH ×2 (10:54→22:07)
--- NOTE | 2017-06-01 11:07 | PN ---
Progress Note, Physician History of Present Illness: pulmonary no change poorly responsive on vent support ac mode - Current Medication List Current Medications: Active Medications Acetaminophen (Tylenol Oral Solution -) 650 mg PO Q4H PRN PRN Reason: FEVER OR PAIN Last Admin: 05/28/17 17:10 Dose: 650 mg Albuterol Sulfate (Ventolin 0.083% Nebulizer Soln -) 1 amp NEB Q6HPO [place] Last Admin: 06/01/17 06:45 Dose: 1 amp Atorvastatin Calcium (Lipitor -) 10 mg GT HS [facility] Last Admin: 05/31/17 23:59 Dose: 10 mg Diltiazem HCl (Cardizem -) 60 mg PO Q6HPO [place] Last Admin: 06/01/17 06:45 Dose: 60 mg Heparin Sodium (Porcine) (Heparin -) 5,000 unit SQ BID [facility] Last Admin: 06/01/17 10:54 Dose: 5,000 unit Ipratropium [place] (Atrovent 0.02% Nebulizer -) 1 amp NEB Q6HPO [facility] Last Admin: 06/01/17 06:45 Dose: 1 amp Levothyroxine Sodium (Synthroid -) 88 mcg GT ACBK [facility] Last Admin: 06/01/17 06:45 Dose: 88 mcg Metoclopramide HCl (Reglan -) 10 mg PO Q6HPO [place] Last Admin: 06/01/17 06:44 Dose: 10 mg Pantoprazole Sodium (Protonix Packets For Oral Suspension -) 40 mg GT BID [facility] Last Admin: 06/01/17 10:54 Dose: 40 mg Sodium Chloride (Normal Saline -) 250 ml IV Q20M PRN PRN Reason: MAP<65mm Hg OR SBP <90 Last Admin: 05/22/17 06:52 Dose: 250 ml - Objective Vital Signs: Vital Signs Temperature 98.0 F 06/01/17 05:00 Pulse Rate 72 06/01/17 05:00 Respiratory Rate 17 06/01/17 06:30 Blood Pressure 162/88 06/01/17 05:00 O2 Sat by Pulse Oximetry (%) 97 05/31/17 21:00 Constitutional: Yes: Well Nourished, No Distress, Other (poorly responsive) Eyes: Yes: WNL HENT: Yes: WNL Neck: Yes: Supple (trach) Cardiovascular: Yes: Regular Rate and Rhythm, S1, S2 Respiratory: Yes: Rhonchi (few rhonchi) Gastrointestinal: Yes: Normal Bowel Sounds, Soft Extremities: Yes: Other (upper ext contractures) Edema: No Problem List - Problems (1) Atrial fibrillation Code(s): I48.91 - UNSPECIFIED ATRIAL FIBRILLATION Qualifiers: Atrial fibrillation type: unspecified Qualified Code(s): I48.91 - Unspecified atrial fibrillation (2) Fever Code(s): R50.9 - FEVER, UNSPECIFIED Qualifiers: Fever type: due to other condition Qualified Code(s): R50.81 - Fever presenting with conditions classified elsewhere (3) Ventilator associated pneumonia Code(s): J95.851 - VENTILATOR ASSOCIATED PNEUMONIA (4) CVA (cerebral infarction) Code(s): I63.9 - CEREBRAL INFARCTION, UNSPECIFIED (5) HTN (hypertension) Code(s): I10 - ESSENTIAL (PRIMARY) HYPERTENSION (6) Obesity Code(s): E66.9 - OBESITY, UNSPECIFIED (7) Chronic respiratory failure Code(s): J96.10 - CHRONIC RESPIRATORY FAILURE, UNSP W HYPOXIA OR HYPERCAPNIA Assessment/Plan A/P Chronic Respiratory Failure Ventilator Associated Pneumonia Anoxic Encephalopathy Lactic Acidosis resolved Atrial fibrillation - IVF - enteral feeds - continue volume assist control - not a candidate for weaning at this time - DVT/GI prophylaxis DR VALENTINE
--- NOTE | 2017-06-01 13:51 | PN ---
Progress Note, Physician Chief Complaint: BLOODY SPUTUM RESPIRATORY DISTRESS History of Present Illness: Patient comfortable on mechanical vent. Seen by ID and Pulmonary Received IVF, on IV abx WBC improved - Current Medication List Current Medications: Active Medications Acetaminophen (Tylenol Oral Solution -) 650 mg PO Q4H PRN PRN Reason: FEVER OR PAIN Last Admin: 05/28/17 17:10 Dose: 650 mg Albuterol Sulfate (Ventolin 0.083% Nebulizer Soln -) 1 amp NEB Q6HPO [facility] Last Admin: 06/01/17 11:05 Dose: 1 amp Atorvastatin Calcium (Lipitor -) 10 mg GT HS [facility] Last Admin: 05/31/17 23:59 Dose: 10 mg Diltiazem HCl (Cardizem -) 60 mg PO Q6HPO [facility] Last Admin: 06/01/17 11:39 Dose: 60 mg Heparin Sodium (Porcine) (Heparin -) 5,000 unit SQ BID [facility] Last Admin: 06/01/17 10:54 Dose: 5,000 unit Ipratropium [place] (Atrovent 0.02% Nebulizer -) 1 amp NEB Q6HPO [facility] Last Admin: 06/01/17 11:05 Dose: 1 amp Levothyroxine Sodium (Synthroid -) 88 mcg GT ACBK [facility] Last Admin: 06/01/17 06:45 Dose: 88 mcg Metoclopramide HCl (Reglan -) 10 mg PO Q6HPO [facility] Last Admin: 06/01/17 11:39 Dose: 10 mg Pantoprazole Sodium (Protonix Packets For Oral Suspension -) 40 mg GT BID [facility] Last Admin: 06/01/17 10:54 Dose: 40 mg Sodium Chloride (Normal Saline -) 250 ml IV Q20M PRN PRN Reason: MAP<65mm Hg OR SBP <90 Last Admin: 05/22/17 06:52 Dose: 250 ml - Objective Vital Signs: Vital Signs Temperature 98.9 F 06/01/17 09:00 Pulse Rate 86 06/01/17 09:15 Respiratory Rate 18 06/01/17 09:15 Blood Pressure 157/87 06/01/17 09:00 O2 Sat by Pulse Oximetry (%) 94 L 06/01/17 11:04 Constitutional: Yes: Well Nourished, No Distress, Calm Cardiovascular: Yes: Regular Rate and Rhythm Respiratory: Yes: Regular Gastrointestinal: Yes: Normal Bowel Sounds Musculoskeletal: Yes: WNL Extremities: Yes: WNL Edema: No Peripheral Pulses WNL: Yes Neurological: Yes: Aphasia Labs: CBC, BMP 05/31/17 11:10 05/31/17 11:10 INR, PTT INR 1.15 (0.82-1.09) H 05/22/17 01:45 Problem List - Problems (1) CHF (congestive heart failure) Assessment/Plan: -repeat CXR was unchanged -seen by cardiology Code(s): I50.9 - HEART FAILURE, UNSPECIFIED Qualifiers: Congestive heart failure type: diastolic Congestive heart failure chronicity: acute on chronic Qualified Code(s): I50.33 - Acute on chronic diastolic (congestive) heart failure (2) Respiratory distress Assessment/Plan: -chronic -mechanical vent -Pulmonary consult Code(s): R06.00 - DYSPNEA, UNSPECIFIED (3) Leukocytosis Assessment/Plan: -afebrile since last evening, tylenol for fever over 100.0 F repeat labs this AM -seen by ID -IV abx switched to Vancomycin and ceftazidime -repeat labs today and in AM -repeat cultures: Microbiology 05/25/17 17:10 Blood - Peripheral Venous Blood Culture - Final NO GROWTH AFTER 5 DAYS INCUBATION 05/25/17 17:10 Blood - Peripheral Venous Blood Culture - Final NO GROWTH AFTER 5 DAYS INCUBATION 05/27/17 19:45 Sputum - Endotrachea Suction/Ventilator Gram Stain - Final 05/27/17 19:45 Sputum - Endotrachea Suction/Ventilator Sputum Culture - Final 05/22/17 01:47 Blood - Peripheral Venous Blood Culture - Final NO GROWTH AFTER 5 DAYS INCUBATION 05/22/17 00:40 Blood - Peripheral Venous Blood Culture - Final NO GROWTH AFTER 5 DAYS INCUBATION 05/22/17 13:00 Sputum - Endotrachea Suction/Ventilator Gram Stain - Final 05/22/17 13:00 Sputum - Endotrachea Suction/Ventilator Sputum Culture - Final Escherichia Coli Pseudomonas Aeruginosa 05/22/17 02:30 Urine - Urine - Catheterized Urine Culture - Final NO GROWTH OBTAINED Code(s): D72.829 - ELEVATED WHITE BLOOD CELL COUNT, UNSPECIFIED (4) Respiratory failure Code(s): J96.90 - RESPIRATORY FAILURE, UNSP, UNSP W HYPOXIA OR HYPERCAPNIA Qualifiers: Chronicity: acute on chronic (5) Ventilator associated pneumonia Assessment/Plan: -repeat sputum and preliminary negative -neb tx -repeat CXR unchanged -repeat labs today Code(s): J95.851 - VENTILATOR ASSOCIATED PNEUMONIA Assessment/Plan -IV abx vancomycin and ceftazidime -Tylenol for fever over 100.0F -repeat bc preliminary negative -previous sputum culture positive for lactose ferm gram neg bacilli, repeat preliminary negative -continue feeds -GI/DVT prophylaxis -neb tx -repeat labs today
[2017-06-01] MEDS: ATORVASTATIN CA 10 MG TABLET (FP) GT SCH (22:07)
[2017-06-02] MEDS: LEVOTHYROXINE NA 88 MCG TABLET (FP) GT SCH (06:09)
[2017-06-02] MEDS: METOCLOPRAMIDE HCL 10 MG TABLET (FP) PO SCH ×3 (06:09→17:32)
[2017-06-02] MEDS: dilTIAZem HCL 60 MG TABLET (FP) PO SCH ×3 (06:09→17:31)
[2017-06-02 06:36] LABS: SERUM IRON 55 ug/dL (27-139); TOTAL IRON BINDING CAPACITY 252 ug/dL (250-450); UIBC 197 ug/dL (118-369)
[2017-06-02] MEDS: ALBUTEROL SO4 0.083% IH SOL 2.5 MG/3 ML VIAL.NEB. NEB SCH ×4 (06:45→23:35)
[2017-06-02] MEDS: IPRATROPIUM BR 0.02% 0.5 MG/2.5 ML VIAL.NEB. NEB SCH ×4 (06:45→23:35)
--- NOTE | 2017-06-02 09:18 | PN ---
Progress Note, Physician Chief Complaint: BLOODY SPUTUM RESPIRATORY DISTRESS History of Present Illness: Patient comfortable on mechanical vent. Seen by ID and Pulmonary Received IVF, on IV abx WBC improved - Current Medication List Current Medications: Active Medications Acetaminophen (Tylenol Oral Solution -) 650 mg PO Q4H PRN PRN Reason: FEVER OR PAIN Last Admin: 05/28/17 17:10 Dose: 650 mg Albuterol Sulfate (Ventolin 0.083% Nebulizer Soln -) 1 amp NEB Q6HPO [facility] Last Admin: 06/02/17 06:45 Dose: 1 amp Atorvastatin Calcium (Lipitor -) 10 mg GT HS [facility] Last Admin: 06/01/17 22:07 Dose: 10 mg Diltiazem HCl (Cardizem -) 60 mg PO Q6HPO [facility] Last Admin: 06/02/17 06:09 Dose: 60 mg Heparin Sodium (Porcine) (Heparin -) 5,000 unit SQ BID [facility] Last Admin: 06/01/17 22:07 Dose: 5,000 unit Ipratropium [place] (Atrovent 0.02% Nebulizer -) 1 amp NEB Q6HPO [facility] Last Admin: 06/02/17 06:45 Dose: 1 amp Levothyroxine Sodium (Synthroid -) 88 mcg GT ACBK [facility] Last Admin: 06/02/17 06:09 Dose: 88 mcg Metoclopramide HCl (Reglan -) 10 mg PO Q6HPO [facility] Last Admin: 06/02/17 06:09 Dose: 10 mg Pantoprazole Sodium (Protonix Packets For Oral Suspension -) 40 mg GT BID [facility] Last Admin: 06/01/17 22:07 Dose: 40 mg Sodium Chloride (Normal Saline -) 250 ml IV Q20M PRN PRN Reason: MAP<65mm Hg OR SBP <90 Last Admin: 05/22/17 06:52 Dose: 250 ml - Objective Vital Signs: Vital Signs Temperature 99.2 F 06/02/17 06:00 Pulse Rate 89 06/02/17 06:00 Respiratory Rate 14 06/02/17 06:25 Blood Pressure 132/83 06/02/17 06:00 O2 Sat by Pulse Oximetry (%) 94 L 06/01/17 11:04 Constitutional: Yes: Well Nourished, No Distress, Calm Cardiovascular: Yes: Regular Rate and Rhythm Respiratory: Yes: Regular Gastrointestinal: Yes: Normal Bowel Sounds Edema: No Peripheral Pulses WNL: Yes Neurological: Yes: Aphasia, Pre-Existing Deficit Labs: CBC, BMP 05/31/17 11:10 05/31/17 11:10 INR, PTT INR 1.15 (0.82-1.09) H 05/22/17 01:45 Problem List - Problems (1) CHF (congestive heart failure) Assessment/Plan: -repeat CXR was unchanged -seen by cardiology Code(s): I50.9 - HEART FAILURE, UNSPECIFIED Qualifiers: Congestive heart failure type: diastolic Congestive heart failure chronicity: acute on chronic Qualified Code(s): I50.33 - Acute on chronic diastolic (congestive) heart failure (2) Respiratory distress Assessment/Plan: -chronic -mechanical vent -Pulmonary consult Code(s): R06.00 - DYSPNEA, UNSPECIFIED (3) Leukocytosis Assessment/Plan: -afebrile , tylenol for fever over 100.0 F -seen by ID -off IV abx -WBC still elevated -repeat labs today and in AM Code(s): D72.829 - ELEVATED WHITE BLOOD CELL COUNT, UNSPECIFIED (4) Respiratory failure Code(s): J96.90 - RESPIRATORY FAILURE, UNSP, UNSP W HYPOXIA OR HYPERCAPNIA Qualifiers: Chronicity: acute on chronic (5) Ventilator associated pneumonia Assessment/Plan: -neb tx -repeat CXR unchanged -repeat labs Code(s): J95.851 - VENTILATOR ASSOCIATED PNEUMONIA Assessment/Plan -IV abx discontinued - monitor for fever, Tylenol for fever over 100.0F -repeat sputum culture negative -continue feeds -GI/DVT prophylaxis -neb tx -repeat labs in AM
[2017-06-02] MEDS: HEPARIN NA (PORCINE) 5,000 UNITS/ML 1ML VIAL SQ SCH ×2 (10:54→22:42)
[2017-06-02] MEDS: PANTOPRAZOLE SOD 40 MG SUSPENSION PACKET GT SCH ×2 (10:55→22:47)
--- NOTE | 2017-06-02 11:03 | PN ---
Progress Note, Physician History of Present Illness: PULMONARY NO CHANGE,POORLY RESPONSIVE ON VENT SUPPORT AC MODE - Current Medication List Current Medications: Active Medications Acetaminophen (Tylenol Oral Solution -) 650 mg PO Q4H PRN PRN Reason: FEVER OR PAIN Last Admin: 05/28/17 17:10 Dose: 650 mg Albuterol Sulfate (Ventolin 0.083% Nebulizer Soln -) 1 amp NEB Q6HPO [facility] Last Admin: 06/02/17 06:45 Dose: 1 amp Atorvastatin Calcium (Lipitor -) 10 mg GT HS [facility] Last Admin: 06/01/17 22:07 Dose: 10 mg Diltiazem HCl (Cardizem -) 60 mg PO Q6HPO [facility] Last Admin: 06/02/17 06:09 Dose: 60 mg Heparin Sodium (Porcine) (Heparin -) 5,000 unit SQ BID [facility] Last Admin: 06/02/17 10:54 Dose: 5,000 unit Ipratropium [place] (Atrovent 0.02% Nebulizer -) 1 amp NEB Q6HPO [facility] Last Admin: 06/02/17 06:45 Dose: 1 amp Levothyroxine Sodium (Synthroid -) 88 mcg GT ACBK [facility] Last Admin: 06/02/17 06:09 Dose: 88 mcg Metoclopramide HCl (Reglan -) 10 mg PO Q6HPO [facility] Last Admin: 06/02/17 06:09 Dose: 10 mg Pantoprazole Sodium (Protonix Packets For Oral Suspension -) 40 mg GT BID [facility] Last Admin: 06/02/17 10:55 Dose: 40 mg Sodium Chloride (Normal Saline -) 250 ml IV Q20M PRN PRN Reason: MAP<65mm Hg OR SBP <90 Last Admin: 05/22/17 06:52 Dose: 250 ml - Objective Vital Signs: Vital Signs Temperature 99.2 F 06/02/17 06:00 Pulse Rate 86 06/02/17 09:30 Respiratory Rate 16 06/02/17 09:30 Blood Pressure 132/83 06/02/17 06:00 O2 Sat by Pulse Oximetry (%) 94 L 06/02/17 10:42 Constitutional: Yes: Well Nourished, Other (POORLY RESPONSIVE) Eyes: Yes: WNL HENT: Yes: WNL Neck: Yes: Supple (TRACH) Cardiovascular: Yes: Pulse Irregular, S1, S2 Respiratory: Yes: Rhonchi (FEW SCATTERED LINDY RHONCHI) Gastrointestinal: Yes: Normal Bowel Sounds, Soft Extremities: Yes: Other (CONTRACTURES UPPER EXT) Edema: No Labs: CBC, BMP 05/31/17 11:10 05/31/17 11:10 INR, PTT INR 1.15 (0.82-1.09) H 05/22/17 01:45 Problem List - Problems (1) Atrial fibrillation Code(s): I48.91 - UNSPECIFIED ATRIAL FIBRILLATION Qualifiers: Atrial fibrillation type: unspecified Qualified Code(s): I48.91 - Unspecified atrial fibrillation (2) Fever Code(s): R50.9 - FEVER, UNSPECIFIED Qualifiers: Fever type: due to other condition Qualified Code(s): R50.81 - Fever presenting with conditions classified elsewhere (3) Ventilator associated pneumonia Code(s): J95.851 - VENTILATOR ASSOCIATED PNEUMONIA (4) CVA (cerebral infarction) Code(s): I63.9 - CEREBRAL INFARCTION, UNSPECIFIED (5) HTN (hypertension) Code(s): I10 - ESSENTIAL (PRIMARY) HYPERTENSION (6) Obesity Code(s): E66.9 - OBESITY, UNSPECIFIED (7) Chronic respiratory failure Code(s): J96.10 - CHRONIC RESPIRATORY FAILURE, UNSP W HYPOXIA OR HYPERCAPNIA Assessment/Plan A/P Chronic Respiratory Failure Ventilator Associated Pneumonia Anoxic Encephalopathy Lactic Acidosis resolved Atrial fibrillation - IVF - enteral feeds - continue volume assist control - not a candidate for weaning at this time - DVT/GI prophylaxis DR VALENTINE
--- NOTE | 2017-06-02 17:11 | PN ---
Progress Note (short form) - Note Progress Note: G-tube exchanged at bedside 20 Fr tube placed Gastrograffin study ordered. Do Not Feed until results of study are available. FF
[2017-06-02] MEDS: ATORVASTATIN CA 10 MG TABLET (FP) GT SCH (22:47)
[2017-06-03] MEDS: dilTIAZem HCL 60 MG TABLET (FP) PO SCH ×5 (00:16→23:05)
[2017-06-03] MEDS: METOCLOPRAMIDE HCL 10 MG TABLET (FP) PO SCH ×5 (00:16→23:05)
[2017-06-03] MEDS: LEVOTHYROXINE NA 88 MCG TABLET (FP) GT SCH (06:26)
[2017-06-03] MEDS: IPRATROPIUM BR 0.02% 0.5 MG/2.5 ML VIAL.NEB. NEB SCH ×2 (06:40→11:05)
[2017-06-03] MEDS: ALBUTEROL SO4 0.083% IH SOL 2.5 MG/3 ML VIAL.NEB. NEB SCH ×2 (06:40→11:05)
[2017-06-03 08:35] LABS: BASOPHIL 1.3 % (0-2.0); EOSINOPHIL 5.4 % (0-4.5); MCH 30.8 pg (25.7-33.7); MCHC 32.8 g/dl (32.0-36.0); MEAN PLT VOLUME 10.2 fl (7.5-11.1); NEUTROPHILS 47.3 % (42.8-82.8); PLATELET COUNT 330 K/MM3 (134-434); RDW 14.8 % (11.6-15.6); WHITE BLOOD COUNT 10.4 K/mm3 (4.0-10.0)
[2017-06-03 08:57] LABS: ALBUMIN 2.9 g/dl (3.4-5.0); ANION GAP 7 (8-16); CALCIUM 8.6 mg/dL (8.5-10.1); CO2 31 mmol/L (21-32); GLUCOSE,RANDOM 93 mg/dL (74-106); SGOT/AST 19 U/L (15-37); SGPT/ALT 24 U/L (12-78)
[2017-06-03 08:59] LABS: ALK PHOS 84 U/L (45-117); BILIRUBIN,TOTAL 0.3 mg/dL (0.2-1.0); CREATININE 0.5 mg/dL (0.55-1.02); TOT PROT 8.1 g/dl (6.4-8.2)
--- NOTE | 2017-06-03 10:50 | PN ---
Progress Note, Physician Chief Complaint: annelise had G tube change awaitiing gastrograffin test per GI need final report of test prior to restart tube feeding dc planning in am to [facility] - Current Medication List Current Medications: Active Medications Acetaminophen (Tylenol Oral Solution -) 650 mg PO Q4H PRN PRN Reason: FEVER OR PAIN Last Admin: 05/28/17 17:10 Dose: 650 mg Albuterol Sulfate (Ventolin 0.083% Nebulizer Soln -) 1 amp NEB Q6HPO [facility] Last Admin: 06/03/17 06:40 Dose: 1 amp Atorvastatin Calcium (Lipitor -) 10 mg GT HS [facility] Last Admin: 06/02/17 22:47 Dose: Not Given Diltiazem HCl (Cardizem -) 60 mg PO Q6HPO [facility] Last Admin: 06/03/17 05:51 Dose: Not Given Heparin Sodium (Porcine) (Heparin -) 5,000 unit SQ BID [facility] Last Admin: 06/02/17 22:42 Dose: 5,000 unit Ipratropium [place] (Atrovent 0.02% Nebulizer -) 1 amp NEB Q6HPO [facility] Last Admin: 06/03/17 06:40 Dose: 1 amp Levothyroxine Sodium (Synthroid -) 88 mcg GT ACBK [facility] Last Admin: 06/03/17 06:26 Dose: Not Given Metoclopramide HCl (Reglan -) 10 mg PO Q6HPO [facility] Last Admin: 06/03/17 05:51 Dose: Not Given Pantoprazole Sodium (Protonix Packets For Oral Suspension -) 40 mg GT BID [facility] Last Admin: 06/02/17 22:47 Dose: Not Given Sodium Chloride (Normal Saline -) 250 ml IV Q20M PRN PRN Reason: MAP<65mm Hg OR SBP <90 Last Admin: 05/22/17 06:52 Dose: 250 ml - Objective Vital Signs: Vital Signs Temperature 98.7 F 06/03/17 06:00 Pulse Rate 80 06/03/17 06:00 Respiratory Rate 14 06/03/17 10:37 Blood Pressure 138/88 06/03/17 06:00 O2 Sat by Pulse Oximetry (%) 94 L 06/02/17 10:42 Constitutional: Yes: Calm, Other (no verbal) Neck: Yes: Other (trach) Cardiovascular: Yes: S1, S2 Respiratory: Yes: Mechanically Ventilated Gastrointestinal: Yes: Soft, Other (g tube) Extremities: Yes: Other (contracted flexed ext) Labs: CBC, BMP 06/03/17 05:55 06/03/17 05:55 INR, PTT INR 1.15 (0.82-1.09) H 05/22/17 01:45 Problem List - Problems (1) Gastrojejunostomy tube status Assessment/Plan: g tube replacememt done awaiting gastrograffin study once study is read and report entered then restart tube feeding and monitor for residual dc to [facility] in AM Code(s): Z93.4 - OTHER ARTIFICIAL OPENINGS OF GASTROINTESTINAL TRACT STATUS (2) Atrial fibrillation Assessment/Plan: rate control on cardizem Code(s): I48.91 - UNSPECIFIED ATRIAL FIBRILLATION Qualifiers: Atrial fibrillation type: unspecified Qualified Code(s): I48.91 - Unspecified atrial fibrillation (3) Chronic respiratory failure Assessment/Plan: vent dependant Code(s): J96.10 - CHRONIC RESPIRATORY FAILURE, UNSP W HYPOXIA OR HYPERCAPNIA (4) Hypothyroid Assessment/Plan: on synthroid Code(s): E03.9 - HYPOTHYROIDISM, UNSPECIFIED (5) Ventilator associated pneumonia Assessment/Plan: wbc trending down abx stopped afebrile Code(s): J95.851 - VENTILATOR ASSOCIATED PNEUMONIA
[2017-06-03] MEDS: HEPARIN NA (PORCINE) 5,000 UNITS/ML 1ML VIAL SQ SCH ×2 (10:52→22:38)
[2017-06-03] MEDS: PANTOPRAZOLE SOD 40 MG SUSPENSION PACKET GT SCH ×2 (10:53→22:38)
--- NOTE | 2017-06-03 13:53 | PN ---
Progress Note, Physician History of Present Illness: pulmonary no change poorly responsive on vent support ac mode - Current Medication List Current Medications: Active Medications Acetaminophen (Tylenol Oral Solution -) 650 mg PO Q4H PRN PRN Reason: FEVER OR PAIN Last Admin: 05/28/17 17:10 Dose: 650 mg Atorvastatin Calcium (Lipitor -) 10 mg GT HS [facility] Last Admin: 06/02/17 22:47 Dose: Not Given Diltiazem HCl (Cardizem -) 60 mg PO Q6HPO [facility] Last Admin: 06/03/17 13:07 Dose: Not Given Heparin Sodium (Porcine) (Heparin -) 5,000 unit SQ BID [facility] Last Admin: 06/03/17 10:52 Dose: 5,000 unit Levothyroxine Sodium (Synthroid -) 88 mcg GT ACBK [facility] Last Admin: 06/03/17 06:26 Dose: Not Given Metoclopramide HCl (Reglan -) 10 mg PO Q6HPO [facility] Last Admin: 06/03/17 13:07 Dose: Not Given Pantoprazole Sodium (Protonix Packets For Oral Suspension -) 40 mg GT BID [facility] Last Admin: 06/03/17 10:53 Dose: Not Given Sodium Chloride (Normal Saline -) 250 ml IV Q20M PRN PRN Reason: MAP<65mm Hg OR SBP <90 Last Admin: 05/22/17 06:52 Dose: 250 ml - Objective Vital Signs: Vital Signs Temperature 98.8 F 06/03/17 10:00 Pulse Rate 97 H 06/03/17 11:04 Respiratory Rate 14 06/03/17 10:37 Blood Pressure 132/80 06/03/17 10:00 O2 Sat by Pulse Oximetry (%) 98 06/03/17 11:04 Constitutional: Yes: Well Nourished, Other (poorly responsive) Eyes: Yes: WNL HENT: Yes: WNL Neck: Yes: Supple (trach) Cardiovascular: Yes: Pulse Irregular, S1, S2 Respiratory: Yes: Rhonchi Gastrointestinal: Yes: Normal Bowel Sounds, Soft Extremities: Yes: Other (upper ext contractures) Edema: Yes Labs: CBC, BMP 06/03/17 05:55 06/03/17 05:55 INR, PTT INR 1.15 (0.82-1.09) H 05/22/17 01:45 Problem List - Problems (1) Atrial fibrillation Code(s): I48.91 - UNSPECIFIED ATRIAL FIBRILLATION Qualifiers: Atrial fibrillation type: unspecified Qualified Code(s): I48.91 - Unspecified atrial fibrillation (2) Fever Code(s): R50.9 - FEVER, UNSPECIFIED Qualifiers: Fever type: due to other condition Qualified Code(s): R50.81 - Fever presenting with conditions classified elsewhere (3) Ventilator associated pneumonia Code(s): J95.851 - VENTILATOR ASSOCIATED PNEUMONIA (4) CVA (cerebral infarction) Code(s): I63.9 - CEREBRAL INFARCTION, UNSPECIFIED (5) HTN (hypertension) Code(s): I10 - ESSENTIAL (PRIMARY) HYPERTENSION (6) Obesity Code(s): E66.9 - OBESITY, UNSPECIFIED (7) Chronic respiratory failure Code(s): J96.10 - CHRONIC RESPIRATORY FAILURE, UNSP W HYPOXIA OR HYPERCAPNIA Assessment/Plan A/P Chronic Respiratory Failure Ventilator Associated Pneumonia Anoxic Encephalopathy Lactic Acidosis resolved Atrial fibrillation - IVF - enteral feeds - continue volume assist control - not a candidate for weaning at this time - DVT/GI prophylaxis DR VALENTINE
[2017-06-03] MEDS: ATORVASTATIN CA 10 MG TABLET (FP) GT SCH (22:38)
[2017-06-04] MEDS: dilTIAZem HCL 60 MG TABLET (FP) PO SCH ×4 (06:03→23:12)
[2017-06-04] MEDS: METOCLOPRAMIDE HCL 10 MG TABLET (FP) PO SCH ×4 (06:03→23:13)
[2017-06-04] MEDS: LEVOTHYROXINE NA 88 MCG TABLET (FP) GT SCH (06:13)
[2017-06-04] MEDS: PANTOPRAZOLE SOD 40 MG SUSPENSION PACKET GT SCH ×2 (09:09→22:46)
[2017-06-04] MEDS: HEPARIN NA (PORCINE) 5,000 UNITS/ML 1ML VIAL SQ SCH ×2 (09:09→22:46)
--- NOTE | 2017-06-04 11:06 | PN ---
Progress Note, Physician Chief Complaint: BLOODY SPUTUM RESPIRATORY DISTRESS History of Present Illness: Patient comfortable on mechanical vent. was seen by ID and Pulmonary Received IVF, finished IV abx 2 days ago fever this AM 100.3 NAD had gastrograffin study done with successful g tube placement - Current Medication List Current Medications: Active Medications Acetaminophen (Tylenol Oral Solution -) 650 mg PO Q4H PRN PRN Reason: FEVER OR PAIN Last Admin: 05/28/17 17:10 Dose: 650 mg Atorvastatin Calcium (Lipitor -) 10 mg GT HS [facility] Last Admin: 06/03/17 22:38 Dose: 10 mg Diltiazem HCl (Cardizem -) 60 mg PO Q6HPO [facility] Last Admin: 06/04/17 06:03 Dose: 60 mg Heparin Sodium (Porcine) (Heparin -) 5,000 unit SQ BID [facility] Last Admin: 06/04/17 09:09 Dose: 5,000 unit Levothyroxine Sodium (Synthroid -) 88 mcg GT ACBK [facility] Last Admin: 06/04/17 06:13 Dose: 88 mcg Metoclopramide HCl (Reglan -) 10 mg PO Q6HPO [facility] Last Admin: 06/04/17 06:03 Dose: 10 mg Pantoprazole Sodium (Protonix Packets For Oral Suspension -) 40 mg GT BID [facility] Last Admin: 06/04/17 09:09 Dose: 40 mg Sodium Chloride (Normal Saline -) 250 ml IV Q20M PRN PRN Reason: MAP<65mm Hg OR SBP <90 Last Admin: 05/22/17 06:52 Dose: 250 ml - Objective Vital Signs: Vital Signs Temperature 100.8 F H 06/04/17 10:15 Pulse Rate 81 06/04/17 09:18 Respiratory Rate 14 06/04/17 09:16 Blood Pressure 136/70 06/04/17 09:00 O2 Sat by Pulse Oximetry (%) 97 06/04/17 09:18 Constitutional: Yes: Well Nourished, No Distress, Calm Cardiovascular: Yes: Regular Rate and Rhythm Respiratory: Yes: Regular Gastrointestinal: Yes: Normal Bowel Sounds Musculoskeletal: Yes: WNL Extremities: Yes: WNL Edema: No Peripheral Pulses WNL: Yes Labs: CBC, BMP 06/03/17 05:55 06/03/17 05:55 INR, PTT INR 1.15 (0.82-1.09) H 05/22/17 01:45 Problem List - Problems (1) CHF (congestive heart failure) Assessment/Plan: -repeat CXR Code(s): I50.9 - HEART FAILURE, UNSPECIFIED Qualifiers: Congestive heart failure type: diastolic Congestive heart failure chronicity: acute on chronic Qualified Code(s): I50.33 - Acute on chronic diastolic (congestive) heart failure (2) Respiratory distress Assessment/Plan: -chronic -mechanical vent -Pulmonary consult Code(s): R06.00 - DYSPNEA, UNSPECIFIED (3) Leukocytosis Assessment/Plan: -afebrile , tylenol for fever over 100.0 F -seen by ID -off IV abx -repeat labs today -repeat UC,BC,SC and CXR Code(s): D72.829 - ELEVATED WHITE BLOOD CELL COUNT, UNSPECIFIED (4) Respiratory failure Assessment/Plan: -repeat CXR Code(s): J96.90 - RESPIRATORY FAILURE, UNSP, UNSP W HYPOXIA OR HYPERCAPNIA Qualifiers: Chronicity: acute on chronic (5) Ventilator associated pneumonia Assessment/Plan: -neb tx -repeat CXR -repeat labs Code(s): J95.851 - VENTILATOR ASSOCIATED PNEUMONIA Assessment/Plan -IV abx was discontinued - monitor for fever, Tylenol for fever over 100.0F -GI/DVT prophylaxis -neb tx -repeat labs -repeat BC,UC,SC -repeat CXR
--- NOTE | 2017-06-04 11:41 | PN ---
Progress Note, Physician History of Present Illness: Off antibiotics Temp spike noted 100.8 No significant clinical change WBC improved CXR today shows improvement - Current Medication List Current Medications: Active Medications Acetaminophen (Tylenol Oral Solution -) 650 mg PO Q4H PRN PRN Reason: FEVER OR PAIN Last Admin: 05/28/17 17:10 Dose: 650 mg Atorvastatin Calcium (Lipitor -) 10 mg GT HS [facility] Last Admin: 06/03/17 22:38 Dose: 10 mg Diltiazem HCl (Cardizem -) 60 mg PO Q6HPO [facility] Last Admin: 06/04/17 06:03 Dose: 60 mg Heparin Sodium (Porcine) (Heparin -) 5,000 unit SQ BID [facility] Last Admin: 06/04/17 09:09 Dose: 5,000 unit Levothyroxine Sodium (Synthroid -) 88 mcg GT ACBK [facility] Last Admin: 06/04/17 06:13 Dose: 88 mcg Metoclopramide HCl (Reglan -) 10 mg PO Q6HPO [facility] Last Admin: 06/04/17 06:03 Dose: 10 mg Pantoprazole Sodium (Protonix Packets For Oral Suspension -) 40 mg GT BID [facility] Last Admin: 06/04/17 09:09 Dose: 40 mg Sodium Chloride (Normal Saline -) 250 ml IV Q20M PRN PRN Reason: MAP<65mm Hg OR SBP <90 Last Admin: 05/22/17 06:52 Dose: 250 ml - Objective Vital Signs: Vital Signs Temperature 100.8 F H 06/04/17 10:15 Pulse Rate 81 06/04/17 09:18 Respiratory Rate 14 06/04/17 09:16 Blood Pressure 136/70 06/04/17 09:00 O2 Sat by Pulse Oximetry (%) 97 06/04/17 09:18 Constitutional: Yes: No Distress, Obese Eyes: Yes: Occular Prosthesis Cardiovascular: Yes: Regular Rate and Rhythm, S1, S2 Respiratory: Yes: Mechanically Ventilated Gastrointestinal: Yes: Normal Bowel Sounds, Soft. No: Tenderness Edema: Yes Labs: CBC, BMP 06/03/17 05:55 06/03/17 05:55 INR, PTT INR 1.15 (0.82-1.09) H 05/22/17 01:45 Assessment/Plan Ventilator associated pneumonia Sepsis secondary to pneumonia- improved Chronic respiratory failure Recurrent fever Lactic acidosis- resolved Repeat blood, urine c/s for fever Observe off antibiotics
[2017-06-04 11:46] LABS: MCH 30.6 pg (25.7-33.7); MCHC 32.7 g/dl (32.0-36.0); MEAN CELL VOLUME 93.5 fl (80-96); MEAN PLT VOLUME 9.3 fl (7.5-11.1); NEUTROPHILS 61.5 % (42.8-82.8); PLATELET COUNT 362 K/MM3 (134-434); RDW 15.1 % (11.6-15.6); WHITE BLOOD COUNT 12.3 K/mm3 (4.0-10.0)
--- NOTE | 2017-06-04 11:51 | PN ---
Progress Note, Physician History of Present Illness: PULMONARY NO CHANGE,POORLY RESPONSIVE ON VENT SUPPORT AC MODE. FEBRILE 100.8 - Current Medication List Current Medications: Active Medications Acetaminophen (Tylenol Oral Solution -) 650 mg PO Q4H PRN PRN Reason: FEVER OR PAIN Last Admin: 05/28/17 17:10 Dose: 650 mg Atorvastatin Calcium (Lipitor -) 10 mg GT HS [facility] Last Admin: 06/03/17 22:38 Dose: 10 mg Diltiazem HCl (Cardizem -) 60 mg PO Q6HPO [facility] Last Admin: 06/04/17 06:03 Dose: 60 mg Heparin Sodium (Porcine) (Heparin -) 5,000 unit SQ BID [facility] Last Admin: 06/04/17 09:09 Dose: 5,000 unit Levothyroxine Sodium (Synthroid -) 88 mcg GT ACBK [facility] Last Admin: 06/04/17 06:13 Dose: 88 mcg Metoclopramide HCl (Reglan -) 10 mg PO Q6HPO [facility] Last Admin: 06/04/17 06:03 Dose: 10 mg Pantoprazole Sodium (Protonix Packets For Oral Suspension -) 40 mg GT BID [facility] Last Admin: 06/04/17 09:09 Dose: 40 mg Sodium Chloride (Normal Saline -) 250 ml IV Q20M PRN PRN Reason: MAP<65mm Hg OR SBP <90 Last Admin: 05/22/17 06:52 Dose: 250 ml - Objective Vital Signs: Vital Signs Temperature 100.8 F H 06/04/17 10:15 Pulse Rate 81 06/04/17 09:18 Respiratory Rate 14 06/04/17 09:16 Blood Pressure 136/70 06/04/17 09:00 O2 Sat by Pulse Oximetry (%) 97 06/04/17 09:18 Constitutional: Yes: Well Nourished, Other (POORLY RESPONSIVE) Eyes: Yes: WNL HENT: Yes: WNL Neck: Yes: Supple (TRACH) Cardiovascular: Yes: Pulse Irregular, S1, S2 Respiratory: Yes: Rhonchi (FEW RHONCHI) Gastrointestinal: Yes: Normal Bowel Sounds, Soft Extremities: Yes: Other (UPPER EXT CONTRACTURES) Edema: No Labs: INR, PTT INR 1.15 (0.82-1.09) H 05/22/17 01:45 - ....Imaging Chest X-ray: Report Reviewed, Image Reviewed Problem List - Problems (1) Atrial fibrillation Code(s): I48.91 - UNSPECIFIED ATRIAL FIBRILLATION Qualifiers: Atrial fibrillation type: unspecified Qualified Code(s): I48.91 - Unspecified atrial fibrillation (2) Fever Code(s): R50.9 - FEVER, UNSPECIFIED Qualifiers: Fever type: due to other condition Qualified Code(s): R50.81 - Fever presenting with conditions classified elsewhere (3) Ventilator associated pneumonia Code(s): J95.851 - VENTILATOR ASSOCIATED PNEUMONIA (4) CVA (cerebral infarction) Code(s): I63.9 - CEREBRAL INFARCTION, UNSPECIFIED (5) HTN (hypertension) Code(s): I10 - ESSENTIAL (PRIMARY) HYPERTENSION (6) Obesity Code(s): E66.9 - OBESITY, UNSPECIFIED (7) Chronic respiratory failure Code(s): J96.10 - CHRONIC RESPIRATORY FAILURE, UNSP W HYPOXIA OR HYPERCAPNIA Assessment/Plan A/P Chronic Respiratory Failure Ventilator Associated Pneumonia Anoxic Encephalopathy Lactic Acidosis resolved Atrial fibrillation - IVF - enteral feeds - continue volume assist control - not a candidate for weaning at this time - DVT/GI prophylaxis DR VALENTINE
[2017-06-04 12:17] LABS: ALBUMIN 3.1 g/dl (3.4-5.0); ANION GAP 6 (8-16); BILIRUBIN,TOTAL 0.5 mg/dL (0.2-1.0); CALCIUM 8.7 mg/dL (8.5-10.1); CO2 31 mmol/L (21-32); CREATININE 0.7 mg/dL (0.55-1.02); GLUCOSE,RANDOM 125 mg/dL (74-106); SGOT/AST 24 U/L (15-37); SGPT/ALT 27 U/L (12-78); TOT PROT 8.5 g/dl (6.4-8.2)
[2017-06-04 12:18] LABS: ALK PHOS 90 U/L (45-117)
[2017-06-04] MEDS: ACETAMINOPHEN 650 MG/20.3 ML ORAL SOLUTION (CUPS) PO PRN ×2 (13:17→23:15)
[2017-06-04] MEDS: ATORVASTATIN CA 10 MG TABLET (FP) GT SCH (22:46)
[2017-06-05] MEDS: METOCLOPRAMIDE HCL 10 MG TABLET (FP) PO SCH ×4 (05:48→23:28)
[2017-06-05] MEDS: dilTIAZem HCL 60 MG TABLET (FP) PO SCH ×4 (05:48→23:28)
[2017-06-05] MEDS: LEVOTHYROXINE NA 88 MCG TABLET (FP) GT SCH (06:00)
[2017-06-05 08:50] LABS: BASOPHIL 0.5 % (0-2.0); EOSINOPHIL 3.3 % (0-4.5); MCH 30.9 pg (25.7-33.7); MCHC 32.6 g/dl (32.0-36.0); MEAN CELL VOLUME 94.7 fl (80-96); MEAN PLT VOLUME 9.7 fl (7.5-11.1); NEUTROPHILS 51.4 % (42.8-82.8); PLATELET COUNT 344 K/MM3 (134-434); RDW 15.2 % (11.6-15.6); WHITE BLOOD COUNT 10.5 K/mm3 (4.0-10.0)
--- NOTE | 2017-06-05 09:07 | PN ---
Progress Note, Physician - Current Medication List Current Medications: Active Medications Acetaminophen (Tylenol Oral Solution -) 650 mg PO Q4H PRN PRN Reason: FEVER OR PAIN Last Admin: 06/04/17 23:15 Dose: 650 mg Atorvastatin Calcium (Lipitor -) 10 mg GT HS [facility] Last Admin: 06/04/17 22:46 Dose: 10 mg Diltiazem HCl (Cardizem -) 60 mg PO Q6HPO [facility] Last Admin: 06/05/17 05:48 Dose: 60 mg Heparin Sodium (Porcine) (Heparin -) 5,000 unit SQ BID [facility] Last Admin: 06/04/17 22:46 Dose: 5,000 unit Levothyroxine Sodium (Synthroid -) 88 mcg GT ACBK [facility] Last Admin: 06/05/17 06:00 Dose: 88 mcg Metoclopramide HCl (Reglan -) 10 mg PO Q6HPO [facility] Last Admin: 06/05/17 05:48 Dose: 10 mg Pantoprazole Sodium (Protonix Packets For Oral Suspension -) 40 mg GT BID [facility] Last Admin: 06/04/17 22:46 Dose: 40 mg Sodium Chloride (Normal Saline -) 250 ml IV Q20M PRN PRN Reason: MAP<65mm Hg OR SBP <90 Last Admin: 05/22/17 06:52 Dose: 250 ml - Objective Vital Signs: Vital Signs Temperature 99.4 F 06/05/17 02:00 Pulse Rate 83 06/05/17 06:00 Respiratory Rate 14 06/05/17 06:32 Blood Pressure 136/67 06/05/17 06:00 O2 Sat by Pulse Oximetry (%) 97 06/04/17 09:18 Cardiovascular: Yes: S1, S2 Respiratory: Yes: Mechanically Ventilated, Rhonchi Gastrointestinal: Yes: Normal Bowel Sounds, Soft Labs: CBC, BMP 06/05/17 08:30 06/04/17 11:30 INR, PTT INR 1.15 (0.82-1.09) H 05/22/17 01:45 Assessment/Plan - Problems (1) CHF (congestive heart failure) Assessment/Plan: -repeat CXR Code(s): I50.9 - HEART FAILURE, UNSPECIFIED Qualifiers: Congestive heart failure type: diastolic Congestive heart failure chronicity: acute on chronic Qualified Code(s): I50.33 - Acute on chronic diastolic (congestive) heart failure (2) Respiratory distress Assessment/Plan: -chronic -mechanical vent -Pulmonary consult Code(s): R06.00 - DYSPNEA, UNSPECIFIED (3) Leukocytosis Assessment/Plan: -low grade , tylenol for fever over 100.0 F -seen by ID -off IV abx -repeat labs today -repeat UC,BC,SC and CXR Code(s): D72.829 - ELEVATED WHITE BLOOD CELL COUNT, UNSPECIFIED (4) Respiratory failure Assessment/Plan: -repeat CXR Code(s): J96.90 - RESPIRATORY FAILURE, UNSP, UNSP W HYPOXIA OR HYPERCAPNIA Qualifiers: Chronicity: acute on chronic (5) Ventilator associated pneumonia Assessment/Plan: -neb tx -repeat CXR -repeat labs Code(s): J95.851 - VENTILATOR ASSOCIATED PNEUMONIA Assessment/Plan -IV abx were discontinued - monitor for fever, Tylenol for fever over 100.0F -GI/DVT prophylaxis -neb tx -repeat labs -repeat BC,UC,SC -repeat CXR
[2017-06-05] MEDS: PANTOPRAZOLE SOD 40 MG SUSPENSION PACKET GT SCH ×2 (10:46→22:40)
[2017-06-05] MEDS: HEPARIN NA (PORCINE) 5,000 UNITS/ML 1ML VIAL SQ SCH (10:46)
[2017-06-05] MEDS: ALBUTEROL SO4 2.5/IPRATROPIUM 0.5 INH SOL 3 ML VIAL.NEB. NEB SCH ×3 (12:03→23:51)
--- NOTE | 2017-06-05 13:58 | PN ---
Progress Note, Physician History of Present Illness: PULMONARY MORE AWAKE,ON VENT SUPPORT AC MODE - Current Medication List Current Medications: Active Medications Acetaminophen (Tylenol Oral Solution -) 650 mg PO Q4H PRN PRN Reason: FEVER OR PAIN Last Admin: 06/04/17 23:15 Dose: 650 mg Albuterol/Ipratropium (Duoneb -) 1 amp NEB QIDR [facility] Last Admin: 06/05/17 12:03 Dose: 1 amp Atorvastatin Calcium (Lipitor -) 10 mg GT HS [facility] Last Admin: 06/04/17 22:46 Dose: 10 mg Diltiazem HCl (Cardizem -) 60 mg PO Q6HPO [facility] Last Admin: 06/05/17 05:48 Dose: 60 mg Heparin Sodium (Porcine) (Heparin -) 5,000 unit SQ BID [facility] Last Admin: 06/05/17 10:46 Dose: 5,000 unit Levothyroxine Sodium (Synthroid -) 88 mcg GT ACBK [facility] Last Admin: 06/05/17 06:00 Dose: 88 mcg Metoclopramide HCl (Reglan -) 10 mg PO Q6HPO [facility] Last Admin: 06/05/17 05:48 Dose: 10 mg Pantoprazole Sodium (Protonix Packets For Oral Suspension -) 40 mg GT BID [facility] Last Admin: 06/05/17 10:46 Dose: 40 mg Sodium Chloride (Normal Saline -) 250 ml IV Q20M PRN PRN Reason: MAP<65mm Hg OR SBP <90 Last Admin: 05/22/17 06:52 Dose: 250 ml - Objective Vital Signs: Vital Signs Temperature 98.6 F 06/05/17 10:00 Pulse Rate 86 06/05/17 10:00 Respiratory Rate 40 H 06/05/17 10:18 Blood Pressure 140/68 06/05/17 10:00 O2 Sat by Pulse Oximetry (%) 96 06/05/17 10:18 Constitutional: Yes: Well Nourished, Other Eyes: Yes: WNL HENT: Yes: WNL Neck: Yes: Supple (TRACH) Cardiovascular: Yes: Pulse Irregular, S1, S2 Respiratory: Yes: Rhonchi (FEW RHONCHI) Gastrointestinal: Yes: Normal Bowel Sounds, Soft Extremities: Yes: WNL Edema: No Labs: CBC, BMP 06/05/17 08:30 06/04/17 11:30 INR, PTT INR 1.15 (0.82-1.09) H 05/22/17 01:45 Problem List - Problems (1) Atrial fibrillation Code(s): I48.91 - UNSPECIFIED ATRIAL FIBRILLATION Qualifiers: Atrial fibrillation type: unspecified Qualified Code(s): I48.91 - Unspecified atrial fibrillation (2) Fever Code(s): R50.9 - FEVER, UNSPECIFIED Qualifiers: Fever type: due to other condition Qualified Code(s): R50.81 - Fever presenting with conditions classified elsewhere (3) Ventilator associated pneumonia Code(s): J95.851 - VENTILATOR ASSOCIATED PNEUMONIA (4) CVA (cerebral infarction) Code(s): I63.9 - CEREBRAL INFARCTION, UNSPECIFIED (5) HTN (hypertension) Code(s): I10 - ESSENTIAL (PRIMARY) HYPERTENSION (6) Obesity Code(s): E66.9 - OBESITY, UNSPECIFIED (7) Chronic respiratory failure Code(s): J96.10 - CHRONIC RESPIRATORY FAILURE, UNSP W HYPOXIA OR HYPERCAPNIA Assessment/Plan A/P Chronic Respiratory Failure Ventilator Associated Pneumonia Anoxic Encephalopathy Lactic Acidosis resolved Atrial fibrillation - IVF - enteral feeds - continue volume assist control - not a candidate for weaning at this time - DVT/GI prophylaxis DR VALENTINE
[2017-06-05 17:45] LABS: URINE APPEARANCE CLEAR; URINE BILIRUBIN NEGATIVE (NEGATIVE); URINE BLOOD NEGATIVE (NEGATIVE); URINE COLOR YELLOW; URINE GLUCOSE (UA) NEGATIVE (NEGATIVE); URINE KETONE NEGATIVE (NEGATIVE); URINE LEUK ESTERASE NEGATIVE (NEGATIVE); URINE NITRITE NEGATIVE (NEGATIVE); URINE UROBILINOGEN 4.0 E.U/dl mg/dL (0.2-1.0)
[2017-06-05 17:47] LABS: URINE PROTEIN 1+ (NEGATIVE)
[2017-06-05 17:55] LABS: URINE MUCUS RARE; URINE RBC <1 /hpf (0-3); URINE WBC 1 /hpf (3-5)
[2017-06-05] MEDS: ATORVASTATIN CA 10 MG TABLET (FP) GT SCH (22:40)
[2017-06-06] MEDS: METOCLOPRAMIDE HCL 10 MG TABLET (FP) PO SCH ×2 (06:02→11:26)
[2017-06-06] MEDS: dilTIAZem HCL 60 MG TABLET (FP) PO SCH ×2 (06:03→11:26)
[2017-06-06] MEDS: LEVOTHYROXINE NA 88 MCG TABLET (FP) GT SCH (06:03)
[2017-06-06] MEDS: ALBUTEROL SO4 2.5/IPRATROPIUM 0.5 INH SOL 3 ML VIAL.NEB. NEB SCH ×2 (06:42→11:28)
--- NOTE | 2017-06-06 08:17 | DS ---
Physical Examination Vital Signs: Vital Signs Temperature 98.4 F 06/06/17 07:00 Pulse Rate 80 06/06/17 07:00 Respiratory Rate 16 06/06/17 07:00 Blood Pressure 130/62 06/06/17 07:00 O2 Sat by Pulse Oximetry (%) 96 06/05/17 21:00 Cardiovascular: Yes: S1, S2 Respiratory: Yes: Mechanically Ventilated Labs: CBC, BMP 06/05/17 08:30 06/04/17 11:30 Discharge Summary Reason For Visit: FEVER DEMENTIA AFIB Current Active Problems Atrial fibrillation (Acute) Chronic respiratory failure (Acute) Dementia (Acute) Fever (Acute) Gastrojejunostomy tube status (Acute) Leukocytosis (Acute) Respiratory distress (Acute) Ventilator associated pneumonia (Acute) Hospital Course: Patient is an 87 year old female with significant medical hx of anemia, dementia , AFib, CVA w/ hemiplegia, GI bleed, previous intubation, chronic PEG tube, chronic respiratory failure (on a vent), and tracheostomy who has been sent to the ED via EMS from [facility] for respiratory distress and bloody secretions from trach. The patient is non-ambulatory and non-verbal; she is unable to provide history and history was taken from [place] papers. 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: Yes: Other ([place]/CVA) Cardiovascular: Yes: AFIB Pulmonary: Yes: Previously Intubated, Other (Vent dependent) Gastrointestinal: Yes: GI Bleed - Problems (1) CHF (congestive heart failure) Assessment/Plan: -repeat CXR Code(s): I50.9 - HEART FAILURE, UNSPECIFIED Qualifiers: Congestive heart failure type: diastolic Congestive heart failure chronicity: acute on chronic Qualified Code(s): I50.33 - Acute on chronic diastolic (congestive) heart failure (2) Respiratory distress Assessment/Plan: -chronic -mechanical vent -Pulmonary consult Code(s): R06.00 - DYSPNEA, UNSPECIFIED (3) Leukocytosis Assessment/Plan: -no fever , tylenol for fever over 100.0 F -seen by ID -off IV abx -repeat labs today -repeat UC,BC,SC and CXR Code(s): D72.829 - ELEVATED WHITE BLOOD CELL COUNT, UNSPECIFIED (4) Respiratory failure Assessment/Plan: -repeat CXR Code(s): J96.90 - RESPIRATORY FAILURE, UNSP, UNSP W HYPOXIA OR HYPERCAPNIA Qualifiers: Chronicity: acute on chronic (5) Ventilator associated pneumonia Assessment/Plan: -neb tx -repeat CXR -repeat labs Code(s): J95.851 - VENTILATOR ASSOCIATED PNEUMONIA Assessment/Plan -IV abx were discontinued - monitor for fever, Tylenol for fever over 100.0F -GI/DVT prophylaxis -neb tx -repeat labs noted -repeat BC,UC,SC -repeat CXR Condition: Improved - Instructions Diet, Activity, Other Instructions: bmp in one week Disposition: HALF-WAY FACILITY - Home Medications Comprehensive Discharge Medication List: Ambulatory Orders Acetaminophen [Tylenol] 325 mg GT QID 09/30/14 Diltiazem [Cardizem -] 60 mg PO Q6H 09/30/14 Heparin Na (Porcine) [Heparin] 5,000 units SCJ BID 09/30/14 Lactobacillus Acidophilus [Acidophilus] 1 each GT QID 09/30/14 Metoclopramide HCl 10 mg GT Q6H 09/30/14 Simethicone 80 mg GT QID 09/30/14 Pravastatin Sodium [Pravachol -] 40 mg GT HS 11/02/15 Cholestyramine/Sucrose [Questran Packet -] 4 gm PO ACDIN packet 11/09/15 Levothyroxine [Synthroid -] 88 mcg GT ACBK tablet 11/09/15 Ranitidine [Zantac -] 150 mg GT HS 05/22/17 Albuterol 2.5/Ipratropium 0.5 [Duoneb -] 1 amp NEB QIDR amp 06/06/17
[2017-06-06] MEDS: PANTOPRAZOLE SOD 40 MG SUSPENSION PACKET GT SCH (10:08)
[2017-06-06 11:14] VITALS: TEMP 99.8
[2017-06-06 11:26] VITALS: BP 145/76; PULSE 86
--- NOTE | 2017-06-06 11:41 | PN ---
Progress Note (short form) - Note Progress Note: PULMONARY Vented on volume assist control, unresponsive. No fevers recorded. Last Vital Signs Temp Pulse Resp BP Pulse Ox 99.8 F H 86 14 145/76 96 06/06/17 11:13 06/06/17 11:14 06/06/17 11:14 06/06/17 11:14 06/06/17 10:05 Gen: vented, unresponsive Heart: RRR Lung: scattered rhonchi Abd: soft, nontender Ext: no edema CBC, BMP 06/05/17 08:30 06/04/17 11:30 Active Medications Acetaminophen (Tylenol Oral Solution -) 650 mg PO Q4H PRN PRN Reason: FEVER OR PAIN Last Admin: 06/04/17 23:15 Dose: 650 mg Albuterol/Ipratropium (Duoneb -) 1 amp NEB QIDR [facility] Last Admin: 06/06/17 11:28 Dose: 1 amp Atorvastatin Calcium (Lipitor -) 10 mg GT HS [facility] Last Admin: 06/05/17 22:40 Dose: 10 mg Diltiazem HCl (Cardizem -) 60 mg PO Q6HPO [facility] Last Admin: 06/06/17 11:26 Dose: 60 mg Levothyroxine Sodium (Synthroid -) 88 mcg GT ACBK [facility] Last Admin: 06/06/17 06:03 Dose: 88 mcg Metoclopramide HCl (Reglan -) 10 mg PO Q6HPO [facility] Last Admin: 06/06/17 11:26 Dose: 10 mg Pantoprazole Sodium (Protonix Packets For Oral Suspension -) 40 mg GT BID [facility] Last Admin: 06/06/17 10:08 Dose: 40 mg Sodium Chloride (Normal Saline -) 250 ml IV Q20M PRN PRN Reason: MAP<65mm Hg OR SBP <90 Last Admin: 05/22/17 06:52 Dose: 250 ml A/P Chronic Respiratory Failure Ventilator Associated Pneumonia Anoxic Encephalopathy Lactic Acidosis resolved Atrial fibrillation - completed - enteral feeds - continue volume assist control - not a candidate for weaning at this time due to mental status - DVT/GI prophylaxis
== END 2017-06-06 11:46 | DRG 720 ==
LOC: JER 23:57 → JERBED 05-22 02:18 → J5S 05-22 09:53
PROVIDERS: ADMIT Family Medicine; ATTEND Family Medicine
PROC: 5A1955Z Respiratory Ventilation, Greater than 96 Consecutive Hours (ICD-10-PCS; principal; 2017-05-22)
PROC: 3E0G76Z Introduction of Nutritional Substance into Upper GI, Via Natural or Artificial Opening (ICD-10-PCS; 2017-05-22)
DX: A41.9 Sepsis, unspecified organism (principal); I48.91 Unspecified atrial fibrillation; F03.90 Unspecified dementia, unspecified severity, without behavioral disturbance, psychotic disturbance, mood disturbance, and anxiety; E87.2 Acidosis; J96.10 Chronic respiratory failure, unspecified whether with hypoxia or hypercapnia; D72.828 Other elevated white blood cell count; D64.9 Anemia, unspecified; E03.9 Hypothyroidism, unspecified; G93.1 Anoxic brain damage, not elsewhere classified; J95.851 Ventilator associated pneumonia; I69.359 Hemiplegia and hemiparesis following cerebral infarction affecting unspecified side; J44.9 Chronic obstructive pulmonary disease, unspecified; E66.8 Other obesity; Z68.31 Body mass index [BMI] 31.0-31.9, adult; K92.2 Gastrointestinal hemorrhage, unspecified; I50.33 Acute on chronic diastolic (congestive) heart failure; Z93.1 Gastrostomy status; Z93.0 Tracheostomy status
CPT/HCPCS: 36415; 71010-TC; 74000-TC; 80048; 80053; 81003; 81015; 82272; 82550; 82728; 82803; 83540; 83550; 83605; 83880; 84484; 85025; 85027; 85610; 85730; 86850; 86900; 86901; 87040; 87070; 87077; 87086; 87186; 87205; 90670; 93005; 93010; 94002; 94640; 99285-25; J1644

== ENCOUNTER 2018-02-25 21:51 | Inpatient (IN) | payer OTHER ==
--- NOTE | 2018-02-25 22:41 | PDOC ---
History of Present Illness - General History Source: Alf Records Exam Limitations: Clinical Condition (Nonverbal) - History of Present Illness Initial Comments: 02/25/18 22:48 The patient is an 87 year old female with a significant PMH of chronic respiratory failure (vented), anemia, dementia, AFib, CVA (with hemiplegia), GI bleeds, chronic PEG tube, and tracheostomy who presents to the emergency department from [facility] for treatment of pneumonia. The patient presents with paperwork from [facility] which reads: Chest X-ray showed left lower lobe pneumonia and right lower lobe pneumonia. Small right pleural effusion. Febrile T. max 102.7F. Physician in charge at time of transfer: Dr. Champion. The patient is unable to provide history secondary to her clinical condition. Allergies: NKA Past surgical history: Gastrostomy. PEG tube. Tracheostomy. Social history: No reported cigarette, alcohol, or drug use. PCP: From [facility] <Jhonny Mir - Last Filed: 02/26/18 06:31> - General History Source: Alf Records <Destin Chapman - Last Filed: 02/26/18 19:25> - General Stated Complaint: VENT ISSUES Time Seen by Provider: 02/25/18 22:25 Past History <Jhonny Mir - Last Filed: 02/26/18 06:31> - Past Medical History Anemia: Yes Cardiac Disorders: Yes (atrial fibrillation) CVA: Yes COPD: Yes Dementia: Yes HTN: Yes Hypercholesterolemia: Yes - Surgical History Abdominal Surgery: Yes (gastrostomy) Lung Surgery: Yes (trach) - Suicide/Smoking/Psychosocial Hx Smoking Status: No Smoking History: Unknown if ever smoked Have you smoked in the past 12 months: No Number of Cigarettes Smoked Daily: 0 Hx Alcohol Use: No Drug/Substance Use Hx: No Substance Use Type: None <Destin Chapman - Last Filed: 02/26/18 19:25> - Past Medical History Allergies/Adverse Reactions: Allergies Allergy/AdvReac Type Severity Reaction Status Date / Time No Known Allergies Allergy Verified 11/28/15 20:57 Home Medications: Ambulatory Orders Acetaminophen [Tylenol] 650 mg GT Q4H 09/30/14 Diltiazem [Cardizem -] 60 mg PO Q6H 09/30/14 Heparin Na (Porcine) [Heparin] 5,000 units SCJ BID 09/30/14 Metoclopramide HCl 10 mg GT Q6H 09/30/14 Simethicone 80 mg GT QID 09/30/14 Pravastatin Sodium [Pravachol -] 40 mg GT HS 11/02/15 Levothyroxine [Synthroid -] 88 mcg GT ACBK tablet 11/09/15 Ranitidine [Zantac -] 150 mg GT HS 05/22/17 Albuterol 2.5/Ipratropium 0.5 [Duoneb -] 1 amp NEB QIDR amp 06/06/17 Hypromellose 0.5% Opth Soln [Artificial Tears] 1 drop OU QID 02/26/18 Review of Systems - Review of Systems Able to Perform ROS?: No (Nonverbal) <Jhonny Mir - Last Filed: 02/26/18 06:31> *Physical Exam - Vital Signs Last Vital Signs Temp Pulse Resp BP Pulse Ox 18 02/25/18 22:20 - Physical Exam Comments: 02/25/18 22:48 GENERAL: Nonverbal. Well developed, well nourished. Awake and alert. No acute distress. HEENT: Normocephalic, atraumatic. PERRLA, EOMI. No conjunctival pallor. Sclera are non- icteric. Moist mucous membranes. Oropharynx is clear. NECK: Supple. No JVD. Carotid pulses 2+ and symmetric, without bruits. No thyromegaly. No lymphadenopathy. CARDIOVASCULAR: Regular rate and rhythm. No murmurs, rubs, or gallops. Distal pulses are 2+ and symmetric. PULMONARY: (+) Coarse breath sounds bilaterally, greater on left side. No wheezing, rales or rhonchi. ABDOMINAL: Soft. Non-tender. Non-distended. No rebound or guarding. No organomegaly. Normoactive bowel sounds. MUSCULOSKELETAL Normal range of motion at all joints. No bony deformities or tenderness. No CVA tenderness. EXTREMITIES: No cyanosis. No clubbing. No edema. No calf tenderness. SKIN: Warm and dry. Normal capillary refill. No rashes. No jaundice. NEUROLOGICAL: Alert, awake, appropriate. Cranial nerves 2-12 intact. No deficits to light touch and temperature in face, upper extremities and lower extremities. No motor deficits in the in face, upper extremities and lower extremities. Normoreflexic in the upper and lower extremities. Toes are downgoing bilaterally. PSYCHIATRIC: Cooperative. Good eye contact. Appropriate mood and affect. <Jhonny Mir - Last Filed: 02/26/18 06:31> Heart Score/ECG Review #1 02/26/18 06:31 EKG done at 6:17 Vent rate 91 bpm Normal sinus rhythm Left axis deviation Nonspecific intraventricular block Cannot rule out septal infarct, age undetermined T wave abnomrality, consider lateral ischemia Abnormal ECG <Jhonny Mir - Last Filed: 02/26/18 06:31> ED Treatment Course - LABORATORY CBC & Chemistry Diagram: 02/25/18 00:00 02/25/18 00:00 <Jhonny Mir - Last Filed: 02/26/18 06:31> - LABORATORY CBC & Chemistry Diagram: 02/25/18 00:00 02/25/18 00:00 <Destin Chapman - Last Filed: 02/26/18 19:25> Medical Decision Making - Medical Decision Making 02/26/18 19:24 Dr. Chapman: The scribe's documentation has been prepared under my direction and personally reviewed by me in its entirery. I confirm that the note above accurately reflects all work, treatment, procedures, and medical decision making performed by me. <Destin Chapman - Last Filed: 02/26/18 19:25> *DC/Admit/Observation/Transfer - Attestations Scribe Attestion: 02/25/18 22:49 Documentation prepared by Jhonny Mir, acting as medical collections for Destin Chapman DO. <Jhonny Mir - Last Filed: 02/26/18 06:31> - Discharge Dispostion Admit: Yes <Destin Chapman - Last Filed: 02/26/18 19:25> Diagnosis at time of Disposition: Fever Pneumonia Qualifiers: Pneumonia type: due to unspecified organism Laterality: left Lung location: lower lobe of lung Qualified Code(s): J18.1 - Lobar pneumonia, unspecified organism - Discharge Dispostion Condition at time of disposition: Stable
[2018-02-25] MEDS ORDERED: ACETAMINOPHEN 1000 MG/100 ML VIAL (NON FORMULARY) IVPB ONE (23:18)
[2018-02-26] MEDS ORDERED: ACETAMINOPHEN INJECTION 100 ML IVPB ONE ×2 (00:03→20:03)
[2018-02-26 00:09] LABS: MCH 30.8 pg (25.7-33.7); MCHC 33.3 g/dl (32.0-36.0); MEAN CELL VOLUME 92.5 fl (80-96); MEAN PLT VOLUME 9.7 fl (7.5-11.1); PLATELET COUNT 222 K/MM3 (134-434); RBC 3.57 M/mm3 (3.60-5.2); RDW 15.6 % (11.6-15.6); WHITE BLOOD COUNT 12.1 K/mm3 (4.0-10.0)
[2018-02-26 00:31] LABS: ANION GAP 11 (8-16); BILIRUBIN,TOTAL 0.2 mg/dL (0.2-1.0); BLOOD UREA NITROGEN 21 mg/dL (7-18); CALCIUM 8.5 mg/dL (8.5-10.1); CHLORIDE 103 mmol/L (98-107); CO2 24 mmol/L (21-32); CREATININE 0.7 mg/dL (0.55-1.02); GLUCOSE,RANDOM 104 mg/dL (74-106); POTASSIUM 4.2 mmol/L (3.5-5.1); SGOT/AST 33 U/L (15-37); SGPT/ALT 26 U/L (12-78); SODIUM 138 mmol/L (136-145); TOT PROT 9.3 g/dl (6.4-8.2)
[2018-02-26 00:32] LABS: ALK PHOS 94 U/L (45-117)
[2018-02-26] MEDS ORDERED: FUROSEMIDE 40 MG/4 ML INJECTABLE VIAL IVPUSH ONE (01:33)
[2018-02-26] MEDS ORDERED: PIPERACIL/TAZOB 3.375 GM 3.375 GM/50 ML PREMIX IVPB ONE (03:40)
[2018-02-26] MEDS ORDERED: VANCOMYCIN 1,000 MG in DEXTROSE 5%-WATER - 500 ML IVPB ONE (03:41)
[2018-02-26] MEDS ORDERED: PIPERACILLIN/TAZOB 3.375 GM 3.375 GM/50 ML BAG IVPB ONE ×2 (03:59→04:00)
[2018-02-26] MEDS ORDERED: VANCOMYCIN 1 GRAM (PRE-DOCKED) 1,000 MG/250 ML BAG IVPB ONE (03:59)
[2018-02-26] MEDS ORDERED: FUROSEMIDE 40 MG/4 ML INJECTABLE VIAL ONE (03:59)
--- NOTE | 2018-02-26 05:28 | HP ---
CHIEF COMPLAINT: PNA PCP: Michelle HISTORY OF PRESENT ILLNESS: This is an 87 year old female with a past medical history of chronic resp failure s/p CVA with PEG and trach, vent dependent who presented to the ED from [facility] for management of PNA. Xray at [facility] revealed B/LLL infiltrates. Pt is nonverbal, HPI and ROS obtained from [facility] chart. ER course was notable for: (1) xray with RLL infiltrate, LLL view obscured by heart (2) WBC 12.1, Lactic acid WNL Recent Travel: none PAST MEDICAL HISTORY: chronic respiratory failure s/p trach, vent dependent, CVA, afib, HTN, HLD, anemia, GI bleed, COPD PAST SURGICAL HISTORY: PEG tracheostomy tube Social History: Smoking: unk Alcohol: none Drugs: none Family History: unk Allergies No Known Allergies Allergy (Verified 11/28/15 20:57) HOME MEDICATIONS: 3 Medication Instructions Recorded Acetaminophen [Tylenol] 650 mg GT Q4H 09/30/14 Diltiazem [Cardizem -] 60 mg PO Q6H 09/30/14 Heparin Na (Porcine) [Heparin] 5,000 units SCJ BID 09/30/14 Lactobacillus Acidophilus 1 each GT QID 09/30/14 [Acidophilus] Metoclopramide HCl 10 mg GT Q6H 09/30/14 Simethicone 80 mg GT QID 09/30/14 Pravastatin Sodium [Pravachol -] 40 mg GT HS 11/02/15 Cholestyramine/Sucrose [Questran 4 gm PO ACDIN packet 11/09/15 Packet -] Levothyroxine [Synthroid -] 88 mcg GT ACBK tablet 11/09/15 Ranitidine [Zantac -] 150 mg GT HS 05/22/17 Albuterol 2.5/Ipratropium 0.5 1 amp NEB QIDR amp 06/06/17 [Duoneb -] Aa/Hydrolyzed Collagen, Whey [Lps 30 ml GT BID 02/26/18 15-30 Liquid] Hypromellose 0.5% Opth Soln 1 drop OU QID 02/26/18 [Artificial Tears] REVIEW OF SYSTEMS CONSTITUTIONAL: Present: fever Absent: chills, diaphoresis, generalized weakness, malaise, loss of appetite, weight change HEENT: Absent: rhinorrhea, nasal congestion, throat pain, throat swelling, difficulty swallowing, mouth swelling, ear pain, eye pain, visual changes CARDIOVASCULAR: Absent: chest pain, syncope, palpitations, irregular heart rate, lightheadedness , peripheral edema RESPIRATORY: Absent: cough, shortness of breath, dyspnea with exertion, orthopnea, wheezing, stridor, hemoptysis GASTROINTESTINAL: Absent: abdominal pain, abdominal distension, nausea, vomiting, diarrhea, constipation, melena, hematochezia GENITOURINARY: Absent: dysuria, frequency, urgency, hesitancy, hematuria, flank pain, genital pain MUSCULOSKELETAL: Absent: myalgia, arthralgia, joint swelling, back pain, neck pain SKIN: Absent: rash, itching, pallor HEMATOLOGIC/IMMUNOLOGIC: Absent: easy bleeding, easy bruising, lymphadenopathy, frequent infections ENDOCRINE: Absent: unexplained weight gain, unexplained weight loss, heat intolerance, cold intolerance NEUROLOGIC: Absent: headache, focal weakness or paresthesias, dizziness, unsteady gait, seizure, mental status changes, bladder or bowel incontinence PSYCHIATRIC: Absent: anxiety, depression, suicidal or homicidal ideation, hallucinations. PHYSICAL EXAMINATION Vital Signs - 24 hr 3 02/25/18 02/25/18 02/26/18 02/26/18 22:20 23:16 00:08 04:10 Temperature 100.5 F H Pulse Rate 88 Pulse Rate [ 87 Right Radial] Respiratory 18 16 22 22 Rate Blood Pressure 142/76 Blood Pressure 156/79 [Right Arm] O2 Sat by Pulse 100 100 100 Oximetry (%) GENERAL: Awake, alert, and fully oriented, in no acute distress. HEAD: Normal with no signs of trauma. EYES: Pupils equal, round and reactive to light, extraocular movements intact, sclera anicteric, conjunctiva clear. No lid lag. EARS, NOSE, THROAT: Ears normal, nares patent, oropharynx clear without exudates. Moist mucous membranes. NECK: Normal range of motion, supple without lymphadenopathy, JVD, or masses. LUNGS: Breath sounds equal, scattered rhonchi. No wheezes, and no crackles. No accessory muscle use. HEART: Regular rate and rhythm, normal S1 and S2 without murmur, rub or gallop. ABDOMEN: Soft, nontender, not distended, normoactive bowel sounds, no guarding, no rebound, no masses. No hepatomegaly or splenomegaly. MUSCULOSKELETAL: + contractures to bilat wrists, hands, elbows, hips, knee, bilat drop foot. No bony deformities or tenderness. UPPER EXTREMITIES: 2+ pulses, warm, well-perfused. No cyanosis. No clubbing. No peripheral edema. LOWER EXTREMITIES: 2+ pulses, warm, well-perfused. No calf tenderness. No peripheral edema. NEUROLOGICAL: Cranial nerves II-XII intact. Normal speech. Normal gait. PSYCHIATRIC: Cooperative. Good eye contact. Appropriate mood and affect. SKIN: Warm, dry, normal turgor, no rashes or lesions noted, normal capillary refill. Laboratory Results - last 24 hr 3 02/25/18 02/25/18 02/25/18 00:00 00:00 00:00 WBC 12.1 H RBC 3.57 L Hgb 11.0 Hct 33.0 MCV 92.5 MCH 30.8 MCHC 33.3 RDW 15.6 Plt Count 222 D MPV 9.7 Total Counted 100 Neutrophils % No Result Required. Neutrophils % (Manual) 58.0 Band Neutrophils % 10.0 Lymphocytes % No Result Required. Lymphocytes % (Manual) 12.0 Monocytes % (Manual) 20 H* PT with INR 14.30 H INR 1.27 H Sodium 138 Potassium 4.2 Chloride 103 Carbon Dioxide 24 Anion Gap 11 BUN 21 H Creatinine 0.7 Creat Clearance w eGFR > 60 Random Glucose 104 Lactic Acid 1.4 Calcium 8.5 Magnesium 2.2 Total Bilirubin 0.2 D AST 33 ALT 26 Alkaline Phosphatase 94 B-Natriuretic Peptide 1163.24 H Total Protein 9.3 H Albumin 3.0 L ECG pending Radiology reports CXR Final read pending ASSESSMENT/PLAN: 87yF with PMH chronic respiratory failure s/p trach, vent dependent, CVA, afib, HTN, HLD, anemia, GI bleed, COPD presented to the ED from [facility] with pneumonia. Pneumonia in setting of chronic resp failure/vent dependent - will treat for HCAP given termite treater vent status in LTC facility - cont vanc/zosyn - ID consult - Tylenol for fever - pulm consult - cont duoneb qid Afib/HTN/HLD - cont home meds: cardizem, pravachol, cholestyramine - rate well controlled with cardizem GERD/h/o GI bleed - cont reglan, ranitidine, simethicone DVT PPX - cont home heparin 5000u BID FEN - defer IVF, pt does not appear dry - BMP in am - tube feed, dietary consult for same, pt on glytrol at [facility] Dispo: pt currently requires inpatient management of her emergent condition. Visit type - Emergency Visit Emergency Visit: Yes ED Registration Date: 02/25/18 Care time: The patient presented to the Emergency Department on the above date and was hospitalized for further evaluation of their emergent condition. - New Patient This patient is new to me today: Yes Date on this admission: 02/26/18 - Critical Care Critical Care patient: No Hospitalist Screening - Colonoscopy Questionnaire Colonoscopy Questionnaire: Colonoscopy Questionnaire - Patient: 50 - 75 years old and never had a screening colonoscopy: No History of colon or rectal polyps, or CA: Unknown History of IBD, Crohn's disease or UC: Unknown History of abdominal radiation therapy as a child: Unknown - Relative: 1 with colon or rectal CA, or polyps at age 60 or younger: Unknown Colon or rectal CA diagnosed at age 45 or younger: Unknown Multiple relatives with colon or rectal CA: Unknown - Outcome: Screening Result: Negative Screen
[2018-02-26 07:43] LABS: URINE APPEARANCE CLEAR; URINE BILIRUBIN NEGATIVE (<2.0 mg/dL); URINE BLOOD 1+ (NEGATIVE); URINE COLOR COLORLESS; URINE GLUCOSE (UA) NEGATIVE (NEGATIVE); URINE KETONE NEGATIVE (NEGATIVE); URINE LEUK ESTERASE NEGATIVE (NEGATIVE); URINE NITRITE NEGATIVE (NEGATIVE); URINE PROTEIN NEGATIVE (NEGATIVE); URINE UROBILINOGEN NEGATIVE mg/dL (0.2-1.0)
[2018-02-26 08:11] LABS: EPI CELLS RARE /HPF (FEW); URINE MUCUS RARE
[2018-02-26] MEDS: RANITIDINE HCL 150 MG/10 ML UNIT-DOSE GT SCH (09:00)
[2018-02-26] MEDS: ARTIFICIAL TEARS (POLYVINYL ALCOHOL 1.4%) OPTH DROPS OU SCH ×4 (09:00→22:28)
[2018-02-26] MEDS: dilTIAZem HCL 60 MG TABLET (FP) GT SCH ×3 (09:00→19:40)
[2018-02-26] MEDS: LEVOTHYROXINE NA 88 MCG TABLET (FP) GT SCH (09:00)
[2018-02-26] MEDS: LACTOBACILLUS ACIDOPHILUS 1 TABLET GT SCH ×4 (09:00→22:08)
[2018-02-26] MEDS: HEPARIN NA (PORCINE) 5,000 UNITS/ML 1ML VIAL SQ SCH ×2 (09:00→22:08)
[2018-02-26] MEDS: METOCLOPRAMIDE HCL 5 MG/5 ML UNIT DOSE CUP GT SCH ×3 (09:00→19:40)
[2018-02-26] MEDS: SIMETHICONE 40 MG/0.6 ML BOTTLE GT SCH ×4 (09:16→22:28)
[2018-02-26] MEDS: ALBUTEROL SO4 2.5/IPRATROPIUM 0.5 INH SOL 3 ML VIAL.NEB. NEB SCH ×4 (09:30→21:41)
[2018-02-26] MEDS ORDERED: PATIENT'S OWN MEDICATION (NON-FORMULARY) (Aa/Hydrolyzed Collagen, Whey [Lps 15-30 Liquid] GT SCH (10:00)
--- NOTE | 2018-02-26 11:20 | PN ---
Progress Note, Physician Chief Complaint: Pneumonia History of Present Illness: Vent dependent, NAD, CXR reviewed ID consult febrile - Current Medication List Current Medications: Active Medications Albuterol/Ipratropium (Duoneb -) 1 amp NEB RQID [facility] Last Admin: 02/26/18 09:30 Dose: 1 amp Artificial Tears (Artificial Tears) 1 drop OU QID [facility] Last Admin: 02/26/18 09:00 Dose: 1 drop Atorvastatin Calcium (Lipitor -) 10 mg GT HS [place] Cholestyramine Resin (Questran Light Packet -) 4 gm GT ACDIN [facility] Diltiazem HCl (Cardizem -) 60 mg GT Q6HPO [facility] Last Admin: 02/26/18 09:00 Dose: 60 mg Heparin Sodium (Porcine) (Heparin -) 5,000 unit SQ BID [facility] Last Admin: 02/26/18 09:00 Dose: 5,000 unit Lactobacillus Acidophilus (Bacid -) 1 cap GT QID [facility] Last Admin: 02/26/18 09:00 Dose: 1 cap Levothyroxine Sodium (Synthroid -) 88 mcg GT ACBK [facility] Last Admin: 02/26/18 09:00 Dose: 88 mcg Metoclopramide HCl (Reglan Oral Solution -) 10 mg GT Q6HPO [facility] Last Admin: 02/26/18 09:00 Dose: 10 mg Ranitidine HCl (Zantac Oral Solution -) 150 mg GT DAILY [facility] Last Admin: 02/26/18 09:00 Dose: 150 mg Simethicone (Mylicon Liquid -) 80 mg GT QID [facility] Last Admin: 02/26/18 09:16 Dose: Not Given - Objective Vital Signs: Vital Signs Temperature 100.5 F H 02/25/18 23:16 Pulse Rate 90 02/26/18 07:11 Respiratory Rate 18 02/26/18 07:11 Blood Pressure 157/104 02/26/18 07:11 O2 Sat by Pulse Oximetry (%) 96 02/26/18 07:11 Constitutional: Yes: Well Nourished, No Distress, Calm Cardiovascular: Yes: Regular Rate and Rhythm Respiratory: Yes: Mechanically Ventilated, Rhonchi Gastrointestinal: Yes: WNL (PEG) Musculoskeletal: Yes: WNL Extremities: Yes: WNL Neurological: Yes: Pre-Existing Deficit Labs: CBC, BMP 02/25/18 00:00 02/25/18 00:00 INR, PTT INR 1.27 (0.82-1.09) H 02/25/18 00:00 Problem List - Problems (1) Acute on chronic respiratory failure with hypoxemia Assessment/Plan: -mechanical vent -pulmonary consult -IV abx -Bronchodilators Code(s): J96.21 - ACUTE AND CHRONIC RESPIRATORY FAILURE WITH HYPOXIA (2) Pneumonia Assessment/Plan: -ID consult -IV abx -tylenol for fever -Cultures pending -urine legionella Code(s): J18.9 - PNEUMONIA, UNSPECIFIED ORGANISM Qualifiers: Pneumonia type: due to unspecified organism Laterality: left Lung location: lower lobe of lung Qualified Code(s): J18.1 - Lobar pneumonia, unspecified organism Assessment/Plan see problem list
--- NOTE | 2018-02-26 11:43 | PN ---
Progress Note (short form) - Note Progress Note: PULMONARY CONSULTATION DICTATED 02/26/18 IMP ACUTE ON CHRONIC HYPOXEMIC RESPIRATORY FAILURE BILATERAL PNEUMONIA AFIB S/P CVA HYPOTHROID HTN DEMENTIA H/O GI BLEED PLAN IV ABX CONTINUE VENT SUPPORT ON AC MODE CULTURES TRACHEAL SUCTIONING F/U CHEST X-RAYS NUTRITIONAL SUPPORT DVT PROPHYLAXIS DR VALENTINE Problem List - Problems (1) Fever Code(s): R50.9 - FEVER, UNSPECIFIED (2) Pneumonia Code(s): J18.9 - PNEUMONIA, UNSPECIFIED ORGANISM Qualifiers: Pneumonia type: due to unspecified organism Laterality: left Lung location: lower lobe of lung Qualified Code(s): J18.1 - Lobar pneumonia, unspecified organism (3) Atrial fibrillation Code(s): I48.91 - UNSPECIFIED ATRIAL FIBRILLATION Qualifiers: Atrial fibrillation type: unspecified Qualified Code(s): I48.91 - Unspecified atrial fibrillation (4) CHF (congestive heart failure) Code(s): I50.9 - HEART FAILURE, UNSPECIFIED Qualifiers: Qualified Code(s): I50.33 - Acute on chronic diastolic (congestive) heart failure (5) COPD (chronic obstructive pulmonary disease) Code(s): J44.9 - CHRONIC OBSTRUCTIVE PULMONARY DISEASE, UNSPECIFIED (6) CVA (cerebral infarction) Code(s): I63.9 - CEREBRAL INFARCTION, UNSPECIFIED (7) Chronic respiratory failure Code(s): J96.10 - CHRONIC RESPIRATORY FAILURE, UNSP W HYPOXIA OR HYPERCAPNIA (8) Dementia Code(s): F03.90 - UNSPECIFIED DEMENTIA WITHOUT BEHAVIORAL DISTURBANCE Qualifiers: Dementia type: unspecified type Dementia behavioral disturbance: without behavioral disturbance Qualified Code(s): F03.90 - Unspecified dementia without behavioral disturbance (9) HTN (hypertension) Code(s): I10 - ESSENTIAL (PRIMARY) HYPERTENSION (10) Hypothyroid Code(s): E03.9 - HYPOTHYROIDISM, UNSPECIFIED (11) Acute on chronic respiratory failure with hypoxemia Code(s): J96.21 - ACUTE AND CHRONIC RESPIRATORY FAILURE WITH HYPOXIA
--- NOTE | 2018-02-26 12:21 | CONS ---
DATE OF CONSULTATION: 02/26/2018 REFERRING PHYSICIAN: Elma Martinez MD The patient is an 87-year-old black female resident of [facility] with past medical history of chronic respiratory failure on ventilatory support, anemia, dementia, atrial fibrillation, history of CVA with quadriplegia, GI bleeds, chronic PEG, tracheostomy, transferred to [facility] secondary to fever and x-ray findings compatible with pneumonia. Patient was noted to have a fever of 102.7. She had a chest x-ray performed at the alf which revealed a left lower lobe and right lower lobe infiltrate, at which time she was transferred to [facility] ER. In the emergency room she had a chest x-ray performed which revealed evidence of consolidation in the left base. She was placed on broad-spectrum antibiotics. As stated before, patient has been a long-term resident of [facility] and has been dependent for many years. PAST MEDICAL HISTORY: Includes chronic respiratory failure on vent support status post tracheostomy, status post PEG, status post CVA, atrial fibrillation, dementia, anemia, GI bleeds. REVIEW OF SYSTEMS: Unable to obtain. MEDICATIONS: Medications prior to admission include Tylenol, Cardizem, heparin subcutaneous, metoclopramide, simethicone, pravastatin, Synthroid, Zantac, DuoNeb, and Artificial Tears. Current medications include Zosyn x1, Reglan, Lipitor, Artificial Tears, Synthroid, Questran, DuoNeb, and heparin. PHYSICAL EXAMINATION: General: The patient is an elderly black female, well developed, responsive, on ventilatory support. Vital Signs: T-max is 100.5. Blood pressure is 157/104. Respiratory rate is 28. O2 saturation is 96% on vent. HEENT: Exam is normocephalic, atraumatic. Neck: Supple,trach Heart: Irregularly irregular, S1, S2. Chest: Bilateral rhonchi. Abdomen: Soft. Bowel sounds are positive. Extremities: Bilateral upper extremity contractures. LABORATORY: WBC is 12.1, hemoglobin 11, hematocrit 30.3, platelet count 222, 000. There are 58 polys, 10 bands, 12 lymphs, and 20 monos. INR is 1.27. BUN 21, creatinine 0.7. BNP is 1163. Chest x-ray reveals cardiomegaly, increased markings bilaterally at the bases. IMPRESSION: 1. Bilateral pneumonia, treated as healthcare-acquired pneumonia. Patient chronic ventilator-dependent patient. 2. Chronic respiratory failure on ventilatory support. 3. Atrial fibrillation. 4. Status post cerebrovascular accident with quadriplegia. 5. Hypothyroidism. 6. Dementia. 7. H/O gastrointestinal bleed. PLAN: Broad-spectrum antibiotics, sputum for culture and sensitivity. Continue vent support on assist control mode. Obtain followup chest x-rays, nutritional support. DVT prophylaxis, tracheal suctioning. ERENDIRA VALENTINE M.D. [id number] MTDD
[2018-02-26] MEDS ORDERED: PIPERACILLIN/TAZOB 4.5 GM/100 ML PREMIX BAG IVPB SCH (13:30)
--- NOTE | 2018-02-26 13:30 | PN ---
Progress Note (short form) - Note Progress Note: ID consult dictated imp/reccd pneumonia respiratory failure cultures legionella antigen vanco/zosyn for HCAP Problem List - Problems (1) Pneumonia Code(s): J18.9 - PNEUMONIA, UNSPECIFIED ORGANISM Qualifiers: Pneumonia type: due to unspecified organism Laterality: left Lung location: lower lobe of lung Qualified Code(s): J18.1 - Lobar pneumonia, unspecified organism (2) Chronic respiratory failure Code(s): J96.10 - CHRONIC RESPIRATORY FAILURE, UNSP W HYPOXIA OR HYPERCAPNIA
--- NOTE | 2018-02-26 13:35 | EKG ---
Test Reason : Blood Pressure : / mmHG Vent. Rate : 090 BPM Atrial Rate : 090 BPM P-R Int : 198 ms QRS Dur : 126 ms QT Int : 380 ms P-R-T Axes : 083 -63 099 degrees QTc Int : 464 ms SINUS RHYTHM WITH OCCASIONAL PREMATURE VENTRICULAR COMPLEXES LEFT AXIS DEVIATION NON-SPECIFIC INTRA-VENTRICULAR CONDUCTION BLOCK CANNOT RULE OUT SEPTAL INFARCT , AGE UNDETERMINED T WAVE ABNORMALITY, CONSIDER LATERAL ISCHEMIA ABNORMAL ECG WHEN COMPARED WITH ECG OF 22-MAY-2017 01:40, SINUS RHYTHM HAS REPLACED WIDE QRS RHYTHM Confirmed by ERIN WILLINGHAM, AMERICA ([id number]) on 02/26/2018 1:35:41 PM Referred By: Confirmed By:AMERICA KHAN MD
[2018-02-26] MEDS ORDERED: PIPERACILLIN/TAZOB 4.5 GM 4.5 GM/100 ML BAG IVPB ONE ×2 (14:59→18:40)
[2018-02-26] MEDS: PIPERACILLIN/TAZOB 4.5 GM 4.5 GM in DEXTROSE 5%-WATER - 100 ML IVPB SCH ×2 (15:22→18:50)
[2018-02-26] MEDS: CHOLESTYRAMINE/ASPARTAME 4 GM PACKET GT SCH (18:31)
[2018-02-26] MEDS ORDERED: ACETAMINOPHEN 650 MG/20.3 ML ORAL SOLUTION (CUPS) PO PRN (19:45)
[2018-02-26] MEDS ORDERED: ACETAMINOPHEN 1000 MG/100 ML VIAL (NON FORMULARY) IVPB ONE (20:00)
[2018-02-26 21:11] VITALS: BMI 25.7
[2018-02-26] MEDS ORDERED: ACETAMINOPHEN 650 MG/20.3 ML ORAL SOLUTION (CUPS) GT PRN (21:27)
[2018-02-26] MEDS: ATORVASTATIN CA 10 MG TABLET (FP) GT SCH (22:10)
[2018-02-27] MEDS: METOCLOPRAMIDE HCL 5 MG/5 ML UNIT DOSE CUP GT SCH ×5 (00:07→23:47)
[2018-02-27] MEDS: dilTIAZem HCL 60 MG TABLET (FP) GT SCH ×5 (00:07→23:48)
--- NOTE | 2018-02-27 01:53 | CONS ---
DATE OF CONSULTATION: 02/26/2018 This is an 87-year-old woman [facility] She has a past medical history significant for chronic respiratory failure and has a tracheostomy and is ventilator dependent. She is status post CVA with PEG and tracheostomy. She was sent to the hospital because she was noted to have bilateral infiltrates on chest x-ray. The patient is unable to give any history and the history is from the chart. In the emergency room, she was noted to have a chest x-ray with a dense left base and increased interstitial and alveolar changes with cardiomegaly. She was noted to have a white count of 12,000 and she had a fever of 100.5. She was admitted for further evaluation. PAST MEDICAL HISTORY: Notable for a history of anemia, dementia, atrial fibrillation. She is status post CVA, COPD, hypertension, hypercholesterolemia, chronic respiratory failure. She is status post PEG and tracheostomy. ALLERGIES: No known drug allergies. MEDICATIONS AT THE INTERMEDIATE: Include acetaminophen, diltiazem, subcutaneous heparin, Reglan, simethicone, Pravachol, levothyroxine, ranitidine, albuterol. SOCIAL HISTORY: [facility]. Her past substance use and cigarette history is not known. REVIEW OF SYSTEMS: Is not obtainable. PHYSICAL EXAMINATION: General: She is nonverbal. She is resting comfortably on the ventilator. Vital Signs: Temperature is 100.5, pulse 88, blood pressure 142/76, respiratory rate 16, she weighs 150 pounds. She is on the ventilator with FIO2 at 28%. She is saturating 100%. HEENT: She is normocephalic. Eyes are anicteric. She has a tracheostomy. Lungs: Diminished breath sounds at the bases. Heart: Regular rate and rhythm. Abdomen: Soft. PEG site is clean. Extremities: Without edema. She has bilateral upper extremity contractures. LABORATORY: Labs are notable for a white count of 12.1, hemoglobin 11, platelets 222. BUN is 21, creatinine is 0.7. Chest x-ray reveals cardiomegaly with increased markings bilaterally. IN SUMMARY: This is a chronic ventilator dependent patient [facility] with bilateral pneumonia. She was last in the hospital back in May of 2017, at which time she had pseudomonas and Morganella in her sputum, all of which was sensitive to piperacillin tazobactam. There is no history of any drug-resistant organisms, so I would suggest at this time that we treat her for healthcare-related pneumonia. She has been started on vancomycin and Zosyn, which I would continue at this time. I would obtain a sputum culture as well as urinary antigens as well as a urinary antigen. Further recommendations to follow based on her clinical course. Malena [id number]
[2018-02-27] MEDS: PIPERACILLIN/TAZOB 4.5 GM 4.5 GM in DEXTROSE 5%-WATER - 100 ML IVPB SCH (03:00)
[2018-02-27] MEDS: VANCOMYCIN 1,000 MG in DEXTROSE 5%-WATER - 250 ML IVPB SCH (04:08)
[2018-02-27] MEDS: LEVOTHYROXINE NA 88 MCG TABLET (FP) GT SCH (06:34)
[2018-02-27 07:01] LABS: HEMATOCRIT 34.8 % (32.4-45.2); HEMOGLOBIN 11.5 GM/dL (10.7-15.3); MCH 30.7 pg (25.7-33.7); MCHC 33.2 g/dl (32.0-36.0); MEAN CELL VOLUME 92.7 fl (80-96); PLATELET COUNT 276 K/MM3 (134-434); RBC 3.76 M/mm3 (3.60-5.2); RDW 16.1 % (11.6-15.6)
[2018-02-27 07:19] LABS: ANION GAP 13 (8-16); BLOOD UREA NITROGEN 24 mg/dL (7-18); CALCIUM 8.4 mg/dL (8.5-10.1); CHLORIDE 99 mmol/L (98-107); CO2 25 mmol/L (21-32); GLUCOSE,RANDOM 150 mg/dL (74-106); PHOSPHOROUS 3.3 mg/dL (2.5-4.9); POTASSIUM 3.6 mmol/L (3.5-5.1); SODIUM 137 mmol/L (136-145)
[2018-02-27] MEDS: ALBUTEROL SO4 2.5/IPRATROPIUM 0.5 INH SOL 3 ML VIAL.NEB. NEB SCH ×4 (08:26→21:40)
[2018-02-27 10:02] LABS: PLATELET ESTIMATE NORMAL
[2018-02-27] MEDS ORDERED: PT OWN MED DRAWER 7, Y5N ONE (10:46)
[2018-02-27] MEDS ORDERED: PIPERACILLIN/TAZOBACTAM 4.5 GM VIAL IVPB ONE ×2 (10:47→17:37)
[2018-02-27] MEDS ORDERED: DEXTROSE 5%-WATER 200 ML IVPB ONE (10:47)
[2018-02-27] MEDS: ARTIFICIAL TEARS (POLYVINYL ALCOHOL 1.4%) OPTH DROPS OU SCH ×4 (10:48→21:37)
[2018-02-27] MEDS: PIPERACILLIN/TAZOB 4.5 GM 4.5 GM in DEXTROSE 5%-WATER 100 ML IVPB SCH ×2 (10:49→17:39)
[2018-02-27] MEDS: LACTOBACILLUS ACIDOPHILUS 1 TABLET GT SCH ×4 (10:49→21:36)
[2018-02-27] MEDS: HEPARIN NA (PORCINE) 5,000 UNITS/ML 1ML VIAL SQ SCH ×2 (10:49→21:36)
[2018-02-27] MEDS: SIMETHICONE 40 MG/0.6 ML BOTTLE GT SCH ×4 (10:50→21:37)
[2018-02-27] MEDS: RANITIDINE HCL 150 MG/10 ML UNIT-DOSE GT SCH (10:50)
--- NOTE | 2018-02-27 11:59 | PN ---
Progress Note (short form) - Note Progress Note: PULMONARY/CCM Pt seen and examined in the ICU. Vented, unresponsive. Fever curve trending down. Last Vital Signs Temp Pulse Resp BP Pulse Ox 98.3 F 90 14 125/77 96 02/27/18 10:00 02/27/18 10:00 02/27/18 11:29 02/27/18 10:00 02/27/18 08:25 Intake & Output 02/24/18 02/25/18 02/26/18 02/27/18 23:59 23:59 23:59 23:59 Intake Total 350 Output Total 550 700 Balance -550 -350 Weight 68.039 kg 65.726 kg 65.572 kg Gen: vented, unresponsive Heart: RRR Lung: scattered rhonchi Abd: soft, nontender Ext: + edema CBC, BMP 02/27/18 05:45 02/27/18 05:45 Active Medications Acetaminophen (Tylenol Oral Solution -) 650 mg GT Q6H PRN PRN Reason: FEVER Albuterol/Ipratropium (Duoneb -) 1 amp NEB RQID [facility] Last Admin: 02/27/18 11:29 Dose: 1 amp Artificial Tears (Artificial Tears) 1 drop OU QID [facility] Last Admin: 02/27/18 10:48 Dose: 1 drop Atorvastatin Calcium (Lipitor -) 10 mg GT HS [facility] Last Admin: 02/26/18 22:10 Dose: 10 mg Cholestyramine Resin (Questran Light Packet -) 4 gm GT ACDIN [facility] Last Admin: 02/26/18 18:31 Dose: Not Given Diltiazem HCl (Cardizem -) 60 mg GT Q6HPO [facility] Last Admin: 02/27/18 05:27 Dose: 60 mg Heparin Sodium (Porcine) (Heparin -) 5,000 unit SQ BID [facility] Last Admin: 02/27/18 10:49 Dose: 5,000 unit Vancomycin HCl 1,000 mg/ (Dextrose) 250 mls @ 166.667 mls/hr IVPB DAILY@0500 [facility] Last Admin: 02/27/18 04:08 Dose: 166.667 mls/hr Piperacillin Sod/Tazobactam (Sod 4.5 gm/ Dextrose) 100 mls @ 200 mls/hr IVPB Q8H-IV [facility] Last Admin: 02/27/18 10:49 Dose: 200 mls/hr Lactobacillus Acidophilus (Bacid -) 1 cap GT QID [facility] Last Admin: 02/27/18 10:49 Dose: 1 cap Levothyroxine Sodium (Synthroid -) 88 mcg GT ACBK [facility] Last Admin: 02/27/18 06:34 Dose: 88 mcg Metoclopramide HCl (Reglan Oral Solution -) 10 mg GT Q6HPO [facility] Last Admin: 02/27/18 05:27 Dose: 10 mg Ranitidine HCl (Zantac Oral Solution -) 150 mg GT DAILY [facility] Last Admin: 02/27/18 10:50 Dose: 150 mg Simethicone (Mylicon Liquid -) 80 mg GT QID [facility] Last Admin: 02/27/18 10:50 Dose: 80 mg A/P Acute on Chronic Hypoxic Respiratory Failure Pneumonia Atrial Fibrillation h/o CVA HTN Hypothyroidism Dementia - continue antibiotics - f/u cultures - rate controlled - continue volume assist control - not a candidate for weaning at this time given poor mental status - enteral feeds - DVT/GI prophylaxis
--- NOTE | 2018-02-27 13:41 | PN ---
Progress Note, Physician Chief Complaint: patient seen and examined in ICU temperature curve is trending down elevated wbc - Current Medication List Current Medications: Active Medications Acetaminophen (Tylenol Oral Solution -) 650 mg GT Q6H PRN PRN Reason: FEVER Albuterol/Ipratropium (Duoneb -) 1 amp NEB RQID [facility] Last Admin: 02/27/18 11:29 Dose: 1 amp Artificial Tears (Artificial Tears) 1 drop OU QID [facility] Last Admin: 02/27/18 13:13 Dose: 1 drop Atorvastatin Calcium (Lipitor -) 10 mg GT HS [facility] Last Admin: 02/26/18 22:10 Dose: 10 mg Cholestyramine Resin (Questran Light Packet -) 4 gm GT ACDIN [facility] Last Admin: 02/26/18 18:31 Dose: Not Given Diltiazem HCl (Cardizem -) 60 mg GT Q6HPO [facility] Last Admin: 02/27/18 12:23 Dose: 60 mg Heparin Sodium (Porcine) (Heparin -) 5,000 unit SQ BID [facility] Last Admin: 02/27/18 10:49 Dose: 5,000 unit Vancomycin HCl 1,000 mg/ (Dextrose) 250 mls @ 166.667 mls/hr IVPB DAILY@0500 [facility] Last Admin: 02/27/18 04:08 Dose: 166.667 mls/hr Piperacillin Sod/Tazobactam (Sod 4.5 gm/ Dextrose) 100 mls @ 200 mls/hr IVPB Q8H-IV [facility] Last Admin: 02/27/18 10:49 Dose: 200 mls/hr Lactobacillus Acidophilus (Bacid -) 1 cap GT QID [facility] Last Admin: 02/27/18 13:16 Dose: 1 cap Levothyroxine Sodium (Synthroid -) 88 mcg GT ACBK [facility] Last Admin: 02/27/18 06:34 Dose: 88 mcg Metoclopramide HCl (Reglan Oral Solution -) 10 mg GT Q6HPO [facility] Last Admin: 02/27/18 12:23 Dose: 10 mg Ranitidine HCl (Zantac Oral Solution -) 150 mg GT DAILY [facility] Last Admin: 02/27/18 10:50 Dose: 150 mg Simethicone (Mylicon Liquid -) 80 mg GT QID [facility] Last Admin: 02/27/18 13:12 Dose: 80 mg - Objective Vital Signs: Vital Signs Temperature 98.3 F 02/27/18 10:00 Pulse Rate 92 H 02/27/18 13:22 Respiratory Rate 14 02/27/18 13:22 Blood Pressure 103/70 02/27/18 13:22 O2 Sat by Pulse Oximetry (%) 96 02/27/18 08:25 Constitutional: Yes: Calm Neck: Yes: Other (TRACH) Cardiovascular: Yes: Regular Rate and Rhythm, S1, S2 Respiratory: Yes: Mechanically Ventilated Gastrointestinal: Yes: Normal Bowel Sounds, Soft. No: Other (gtube) Genitourinary: Yes: Pino Present Neurological: Yes: Other (NONVERBAL) Labs: CBC, BMP 02/27/18 05:45 02/27/18 05:45 INR, PTT INR 1.27 (0.82-1.09) H 02/25/18 00:00 Problem List - Problems (1) Pneumonia Assessment/Plan: zosyn and vancomycin Code(s): J18.9 - PNEUMONIA, UNSPECIFIED ORGANISM Qualifiers: Pneumonia type: due to unspecified organism Laterality: left Lung location: lower lobe of lung Qualified Code(s): J18.1 - Lobar pneumonia, unspecified organism (2) CVA (cerebral infarction) Assessment/Plan: s/p trach and peg dvt ppx Code(s): I63.9 - CEREBRAL INFARCTION, UNSPECIFIED (3) Atrial fibrillation Assessment/Plan: cardizem Code(s): I48.91 - UNSPECIFIED ATRIAL FIBRILLATION Qualifiers: Atrial fibrillation type: unspecified Qualified Code(s): I48.91 - Unspecified atrial fibrillation (4) Hypothyroid Assessment/Plan: check tsh on synthroid Code(s): E03.9 - HYPOTHYROIDISM, UNSPECIFIED
--- NOTE | 2018-02-27 13:48 | PN ---
Progress Note, Physician History of Present Illness: Awake, eyes open No acute distress Temps down Afebrile WBC elevated 19K - Current Medication List Current Medications: Active Medications Acetaminophen (Tylenol Oral Solution -) 650 mg GT Q6H PRN PRN Reason: FEVER Albuterol/Ipratropium (Duoneb -) 1 amp NEB RQID [facility] Last Admin: 02/27/18 11:29 Dose: 1 amp Artificial Tears (Artificial Tears) 1 drop OU QID [facility] Last Admin: 02/27/18 13:13 Dose: 1 drop Atorvastatin Calcium (Lipitor -) 10 mg GT HS [facility] Last Admin: 02/26/18 22:10 Dose: 10 mg Cholestyramine Resin (Questran Light Packet -) 4 gm GT ACDIN [facility] Last Admin: 02/26/18 18:31 Dose: Not Given Diltiazem HCl (Cardizem -) 60 mg GT Q6HPO [facility] Last Admin: 02/27/18 12:23 Dose: 60 mg Heparin Sodium (Porcine) (Heparin -) 5,000 unit SQ BID [facility] Last Admin: 02/27/18 10:49 Dose: 5,000 unit Vancomycin HCl 1,000 mg/ (Dextrose) 250 mls @ 166.667 mls/hr IVPB DAILY@0500 [facility] Last Admin: 02/27/18 04:08 Dose: 166.667 mls/hr Piperacillin Sod/Tazobactam (Sod 4.5 gm/ Dextrose) 100 mls @ 200 mls/hr IVPB Q8H-IV [facility] Last Admin: 02/27/18 10:49 Dose: 200 mls/hr Lactobacillus Acidophilus (Bacid -) 1 cap GT QID [facility] Last Admin: 02/27/18 13:16 Dose: 1 cap Levothyroxine Sodium (Synthroid -) 88 mcg GT ACBK [facility] Last Admin: 02/27/18 06:34 Dose: 88 mcg Metoclopramide HCl (Reglan Oral Solution -) 10 mg GT Q6HPO [facility] Last Admin: 02/27/18 12:23 Dose: 10 mg Ranitidine HCl (Zantac Oral Solution -) 150 mg GT DAILY [facility] Last Admin: 02/27/18 10:50 Dose: 150 mg Simethicone (Mylicon Liquid -) 80 mg GT QID [facility] Last Admin: 02/27/18 13:12 Dose: 80 mg - Objective Vital Signs: Vital Signs Temperature 98.3 F 02/27/18 10:00 Pulse Rate 92 H 02/27/18 13:22 Respiratory Rate 14 02/27/18 13:22 Blood Pressure 103/70 02/27/18 13:22 O2 Sat by Pulse Oximetry (%) 96 02/27/18 08:25 Constitutional: Yes: No Distress, Obese Cardiovascular: Yes: Regular Rate and Rhythm, S1, S2 Respiratory: Yes: Diminished Gastrointestinal: Yes: Normal Bowel Sounds, Soft. No: Tenderness Edema: No Labs: CBC, BMP 02/27/18 05:45 02/27/18 05:45 INR, PTT INR 1.27 (0.82-1.09) H 02/25/18 00:00 Assessment/Plan Bilateral pneumonia Chronic respiratory failure S/P CVA Continue empiric zosyn/ vancomycin for HCAP
[2018-02-27] MEDS: CHOLESTYRAMINE/ASPARTAME 4 GM PACKET GT SCH (17:30)
[2018-02-27] MEDS ORDERED: DEXTROSE 5%-WATER 100 ML IVPB ONE (17:37)
[2018-02-27] MEDS ORDERED: ACETAMINOPHEN 1000 MG/100 ML VIAL (NON FORMULARY) IVPB ONE (18:45)
[2018-02-27 20:22] LABS: URINE APPEARANCE SLCLOUDY; URINE BILIRUBIN NEGATIVE (<2.0 mg/dL); URINE BLOOD NEGATIVE (NEGATIVE); URINE COLOR YELLOW; URINE GLUCOSE (UA) NEGATIVE (NEGATIVE); URINE KETONE NEGATIVE (NEGATIVE); URINE LEUK ESTERASE TRACE (NEGATIVE); URINE NITRITE NEGATIVE (NEGATIVE); URINE UROBILINOGEN NEGATIVE mg/dL (0.2-1.0)
[2018-02-27 20:49] LABS: URINE PROTEIN 1+ (NEGATIVE)
[2018-02-27 20:52] LABS: EPI CELLS RARE /HPF (FEW); URINE BACTERIA RARE /hpf (NONE SEEN); URINE MUCUS RARE; YEAST FEW
[2018-02-27] MEDS: ATORVASTATIN CA 10 MG TABLET (FP) GT SCH (21:36)
[2018-02-28] MEDS ORDERED: DEXTROSE 5%-WATER 100 ML IVPB ONE ×3 (01:00→16:53)
[2018-02-28] MEDS ORDERED: PIPERACILLIN/TAZOBACTAM 4.5 GM VIAL IVPB ONE ×3 (01:00→16:53)
[2018-02-28] MEDS: PIPERACILLIN/TAZOB 4.5 GM 4.5 GM in DEXTROSE 5%-WATER 100 ML IVPB SCH ×3 (01:15→17:33)
[2018-02-28] MEDS: VANCOMYCIN 1,000 MG in DEXTROSE 5%-WATER - 250 ML IVPB SCH (04:34)
[2018-02-28] MEDS: METOCLOPRAMIDE HCL 5 MG/5 ML UNIT DOSE CUP GT SCH ×4 (05:09→23:41)
[2018-02-28] MEDS: dilTIAZem HCL 60 MG TABLET (FP) GT SCH ×4 (05:09→23:41)
[2018-02-28] MEDS: LEVOTHYROXINE NA 88 MCG TABLET (FP) GT SCH (06:05)
[2018-02-28 07:12] LABS: BASO % 0.2 % (0-2.0); EOS % 3.3 % (0-4.5); HEMATOCRIT 33.8 % (32.4-45.2); HEMOGLOBIN 11.2 GM/dL (10.7-15.3); LYMPH % 6.3 % (8-40); MCH 30.4 pg (25.7-33.7); MCHC 33.1 g/dl (32.0-36.0); MEAN CELL VOLUME 91.8 fl (80-96); MEAN PLT VOLUME 9.4 fl (7.5-11.1); MONO % 6.8 % (3.8-10.2); NEUT % 83.4 % (42.8-82.8); PLATELET COUNT 244 K/MM3 (134-434); RBC 3.68 M/mm3 (3.60-5.2); RDW 15.5 % (11.6-15.6); WHITE BLOOD COUNT 17.8 K/mm3 (4.0-10.0)
[2018-02-28 07:26] LABS: ALBUMIN 2.5 g/dl (3.4-5.0); ANION GAP 10 (8-16); BILIRUBIN,TOTAL 0.2 mg/dL (0.2-1.0); BLOOD UREA NITROGEN 31 mg/dL (7-18); CALCIUM 8.3 mg/dL (8.5-10.1); CHLORIDE 99 mmol/L (98-107); CO2 24 mmol/L (21-32); CREATININE 1.2 mg/dL (0.55-1.02); GLUCOSE,RANDOM 150 mg/dL (74-106); POTASSIUM 3.2 mmol/L (3.5-5.1); SGOT/AST 54 U/L (15-37); SGPT/ALT 38 U/L (12-78); SODIUM 133 mmol/L (136-145); TOT PROT 8.6 g/dl (6.4-8.2)
[2018-02-28 07:35] LABS: ALK PHOS 137 U/L (45-117)
[2018-02-28] MEDS: ALBUTEROL SO4 2.5/IPRATROPIUM 0.5 INH SOL 3 ML VIAL.NEB. NEB SCH ×4 (08:53→20:00)
[2018-02-28] MEDS ORDERED: PT OWN MED DRAWER 7, Y5N ONE ×4 (09:35→17:35)
[2018-02-28] MEDS: HEPARIN NA (PORCINE) 5,000 UNITS/ML 1ML VIAL SQ SCH ×2 (10:04→22:05)
[2018-02-28] MEDS: SIMETHICONE 40 MG/0.6 ML BOTTLE GT SCH ×4 (10:04→22:04)
[2018-02-28] MEDS: ARTIFICIAL TEARS (POLYVINYL ALCOHOL 1.4%) OPTH DROPS OU SCH ×4 (10:04→22:05)
[2018-02-28] MEDS: RANITIDINE HCL 150 MG/10 ML UNIT-DOSE GT SCH (10:04)
[2018-02-28] MEDS: LACTOBACILLUS ACIDOPHILUS 1 TABLET GT SCH ×4 (10:05→22:04)
[2018-02-28] MEDS ORDERED: POTASSIUM CHLORIDE ORAL LIQUID 20 MEQ/15 ML GT ONE (11:55)
[2018-02-28] MEDS: SODIUM CHLORIDE 1,000 ML IV SCH (12:24)
--- NOTE | 2018-02-28 12:30 | PN ---
Progress Note, Physician Chief Complaint: NOTES AND CHART REVIEWED TRACH DEPENDENT ON VENT - Current Medication List Current Medications: Active Medications Acetaminophen (Tylenol Oral Solution -) 650 mg GT Q6H PRN PRN Reason: FEVER Albuterol/Ipratropium (Duoneb -) 1 amp NEB RQID [facility] Last Admin: 02/28/18 08:53 Dose: 1 amp Artificial Tears (Artificial Tears) 1 drop OU QID [facility] Last Admin: 02/28/18 10:04 Dose: 1 drop Atorvastatin Calcium (Lipitor -) 10 mg GT HS [facility] Last Admin: 02/27/18 21:36 Dose: 10 mg Cholestyramine Resin (Questran Light Packet -) 4 gm GT ACDIN [facility] Last Admin: 02/27/18 17:30 Dose: 4 gm Diltiazem HCl (Cardizem -) 60 mg GT Q6HPO [facility] Last Admin: 02/28/18 11:42 Dose: 60 mg Heparin Sodium (Porcine) (Heparin -) 5,000 unit SQ BID [facility] Last Admin: 02/28/18 10:04 Dose: 5,000 unit Vancomycin HCl 1,000 mg/ (Dextrose) 250 mls @ 166.667 mls/hr IVPB DAILY@0500 [facility] Last Admin: 02/28/18 04:34 Dose: 166.667 mls/hr Piperacillin Sod/Tazobactam (Sod 4.5 gm/ Dextrose) 100 mls @ 200 mls/hr IVPB Q8H-IV [facility] Last Admin: 02/28/18 10:04 Dose: 200 mls/hr Sodium Chloride (Normal Saline -) 1,000 mls @ 75 mls/hr IV ASDIR [facility] Last Admin: 02/28/18 12:24 Dose: 75 mls/hr Lactobacillus Acidophilus (Bacid -) 1 cap GT QID [facility] Last Admin: 02/28/18 10:05 Dose: 1 cap Levothyroxine Sodium (Synthroid -) 88 mcg GT ACBK [facility] Last Admin: 02/28/18 06:05 Dose: 88 mcg Metoclopramide HCl (Reglan Oral Solution -) 10 mg GT Q6HPO [facility] Last Admin: 02/28/18 11:46 Dose: 10 mg Ranitidine HCl (Zantac Oral Solution -) 150 mg GT DAILY [facility] Last Admin: 02/28/18 10:04 Dose: 150 mg Simethicone (Mylicon Liquid -) 80 mg GT QID [facility] Last Admin: 02/28/18 10:04 Dose: 80 mg - Objective Vital Signs: Vital Signs Temperature 99.6 F 02/28/18 09:42 Pulse Rate 98 H 02/28/18 09:42 Respiratory Rate 23 02/28/18 09:42 Blood Pressure 110/67 02/28/18 09:42 O2 Sat by Pulse Oximetry (%) 96 02/28/18 10:00 Constitutional: Yes: Mild Distress Eyes: Yes: Other HENT: Yes: WNL Neck: Yes: WNL Cardiovascular: Yes: WNL Respiratory: Yes: Mechanically Ventilated Gastrointestinal: Yes: Other (GT) Genitourinary: Yes: Incontinence Musculoskeletal: Yes: Muscle Weakness Extremities: Yes: Deformity, Other Edema: Yes Edema: LLE: Trace, RLE: Trace Peripheral Pulses WNL: Yes Integumentary: Yes: Other Wound/Incision: Yes: Dressing Dry and Intact Neurological: Yes: Pre-Existing Deficit, Unresponsive ...Motor Strength: LUE, LLE, RUE, RLE Psychiatric: Yes: Other Labs: CBC, BMP 02/28/18 06:50 02/28/18 06:50 INR, PTT INR 1.27 (0.82-1.09) H 02/25/18 00:00 Problem List - Problems (1) Acute on chronic respiratory failure with hypoxemia Code(s): J96.21 - ACUTE AND CHRONIC RESPIRATORY FAILURE WITH HYPOXIA (2) Fever Code(s): R50.9 - FEVER, UNSPECIFIED (3) Pneumonia Code(s): J18.9 - PNEUMONIA, UNSPECIFIED ORGANISM Qualifiers: Pneumonia type: due to unspecified organism Laterality: left Lung location: lower lobe of lung Qualified Code(s): J18.1 - Lobar pneumonia, unspecified organism (4) Atrial fibrillation Code(s): I48.91 - UNSPECIFIED ATRIAL FIBRILLATION Qualifiers: Atrial fibrillation type: unspecified Qualified Code(s): I48.91 - Unspecified atrial fibrillation (5) CHF (congestive heart failure) Code(s): I50.9 - HEART FAILURE, UNSPECIFIED Qualifiers: Qualified Code(s): I50.33 - Acute on chronic diastolic (congestive) heart failure (6) COPD (chronic obstructive pulmonary disease) Code(s): J44.9 - CHRONIC OBSTRUCTIVE PULMONARY DISEASE, UNSPECIFIED (7) CVA (cerebral infarction) Assessment/Plan: OLD CVA Code(s): I63.9 - CEREBRAL INFARCTION, UNSPECIFIED (8) Chronic respiratory failure Code(s): J96.10 - CHRONIC RESPIRATORY FAILURE, UNSP W HYPOXIA OR HYPERCAPNIA (9) Dementia Code(s): F03.90 - UNSPECIFIED DEMENTIA WITHOUT BEHAVIORAL DISTURBANCE Qualifiers: Dementia type: unspecified type Dementia behavioral disturbance: without behavioral disturbance Qualified Code(s): F03.90 - Unspecified dementia without behavioral disturbance Assessment/Plan IV ABX RESP SUPPORT LABS REVIEWED KCL REPLETED IVF POOR OVERALL PROGNOSIS
--- NOTE | 2018-02-28 16:02 | PN ---
Progress Note, Physician History of Present Illness: pulmonary responsive on vent support ac mode,afebrile - Current Medication List Current Medications: Active Medications Acetaminophen (Tylenol Oral Solution -) 650 mg GT Q6H PRN PRN Reason: FEVER Albuterol/Ipratropium (Duoneb -) 1 amp NEB RQID [facility] Last Admin: 02/28/18 12:33 Dose: 1 amp Artificial Tears (Artificial Tears) 1 drop OU QID [facility] Last Admin: 02/28/18 14:41 Dose: 1 drop Atorvastatin Calcium (Lipitor -) 10 mg GT HS [facility] Last Admin: 02/27/18 21:36 Dose: 10 mg Cholestyramine Resin (Questran Light Packet -) 4 gm GT ACDIN [facility] Last Admin: 02/27/18 17:30 Dose: 4 gm Diltiazem HCl (Cardizem -) 60 mg GT Q6HPO [facility] Last Admin: 02/28/18 11:42 Dose: 60 mg Heparin Sodium (Porcine) (Heparin -) 5,000 unit SQ BID [facility] Last Admin: 02/28/18 10:04 Dose: 5,000 unit Piperacillin Sod/Tazobactam (Sod 4.5 gm/ Dextrose) 100 mls @ 200 mls/hr IVPB Q8H-IV [facility] Last Admin: 02/28/18 10:04 Dose: 200 mls/hr Sodium Chloride (Normal Saline -) 1,000 mls @ 75 mls/hr IV ASDIR [facility] Last Admin: 02/28/18 12:24 Dose: 75 mls/hr Lactobacillus Acidophilus (Bacid -) 1 cap GT QID [facility] Last Admin: 02/28/18 14:42 Dose: 1 cap Levothyroxine Sodium (Synthroid -) 88 mcg GT ACBK [facility] Last Admin: 02/28/18 06:05 Dose: 88 mcg Metoclopramide HCl (Reglan Oral Solution -) 10 mg GT Q6HPO [facility] Last Admin: 02/28/18 11:46 Dose: 10 mg Ranitidine HCl (Zantac Oral Solution -) 150 mg GT DAILY [facility] Last Admin: 02/28/18 10:04 Dose: 150 mg Simethicone (Mylicon Liquid -) 80 mg GT QID [facility] Last Admin: 02/28/18 14:44 Dose: 80 mg - Objective Vital Signs: Vital Signs Temperature 98.4 F 02/28/18 15:28 Pulse Rate 96 H 02/28/18 15:28 Respiratory Rate 18 02/28/18 15:28 Blood Pressure 127/69 02/28/18 15:28 O2 Sat by Pulse Oximetry (%) 96 02/28/18 10:00 Constitutional: Yes: Well Nourished, Calm Eyes: Yes: WNL HENT: Yes: WNL Neck: Yes: Supple (trach) Cardiovascular: Yes: Pulse Irregular, S1, S2 Respiratory: Yes: Rhonchi (scattered tonio rhonchi) Gastrointestinal: Yes: Normal Bowel Sounds, Soft Extremities: Yes: WNL (bilateral ext contractures), Other Edema: No Labs: CBC, BMP 02/28/18 06:50 02/28/18 06:50 INR, PTT INR 1.27 (0.82-1.09) H 02/25/18 00:00 - ....Imaging Chest X-ray: Report Reviewed, Image Reviewed Problem List - Problems (1) Fever Code(s): R50.9 - FEVER, UNSPECIFIED (2) Pneumonia Code(s): J18.9 - PNEUMONIA, UNSPECIFIED ORGANISM Qualifiers: Pneumonia type: due to unspecified organism Laterality: left Lung location: lower lobe of lung Qualified Code(s): J18.1 - Lobar pneumonia, unspecified organism (3) Atrial fibrillation Code(s): I48.91 - UNSPECIFIED ATRIAL FIBRILLATION Qualifiers: Atrial fibrillation type: unspecified Qualified Code(s): I48.91 - Unspecified atrial fibrillation (4) CHF (congestive heart failure) Code(s): I50.9 - HEART FAILURE, UNSPECIFIED Qualifiers: Qualified Code(s): I50.33 - Acute on chronic diastolic (congestive) heart failure (5) COPD (chronic obstructive pulmonary disease) Code(s): J44.9 - CHRONIC OBSTRUCTIVE PULMONARY DISEASE, UNSPECIFIED (6) CVA (cerebral infarction) Code(s): I63.9 - CEREBRAL INFARCTION, UNSPECIFIED (7) Chronic respiratory failure Code(s): J96.10 - CHRONIC RESPIRATORY FAILURE, UNSP W HYPOXIA OR HYPERCAPNIA (8) Dementia Code(s): F03.90 - UNSPECIFIED DEMENTIA WITHOUT BEHAVIORAL DISTURBANCE Qualifiers: Dementia type: unspecified type Dementia behavioral disturbance: without behavioral disturbance Qualified Code(s): F03.90 - Unspecified dementia without behavioral disturbance (9) HTN (hypertension) Code(s): I10 - ESSENTIAL (PRIMARY) HYPERTENSION (10) Hypothyroid Code(s): E03.9 - HYPOTHYROIDISM, UNSPECIFIED (11) Acute on chronic respiratory failure with hypoxemia Code(s): J96.21 - ACUTE AND CHRONIC RESPIRATORY FAILURE WITH HYPOXIA Assessment/Plan IMP ACUTE ON CHRONIC HYPOXEMIC RESPIRATORY FAILURE BILATERAL PNEUMONIA AFIB S/P CVA HYPOTHROID HTN DEMENTIA H/O GI BLEED PLAN IV ABX CONTINUE VENT SUPPORT ON AC MODE TRACHEAL SUCTIONING F/U CHEST X-RAYS NUTRITIONAL SUPPORT DVT PROPHYLAXIS DR VALENTINE Problem List - Problems (1) Fever Code(s): R50.9 - FEVER, UNSPECIFIED (2) Pneumonia Code(s): J18.9 - PNEUMONIA, UNSPECIFIED ORGANISM Qualifiers: Pneumonia type: due to unspecified organism Laterality: left Lung location: lower lobe of lung Qualified Code(s): J18.1 - Lobar pneumonia, unspecified organism (3) Atrial fibrillation Code(s): I48.91 - UNSPECIFIED ATRIAL FIBRILLATION Qualifiers: Atrial fibrillation type: unspecified Qualified Code(s): I48.91 - Unspecified atrial fibrillation (4) CHF (congestive heart failure) Code(s): I50.9 - HEART FAILURE, UNSPECIFIED Qualifiers: Qualified Code(s): I50.33 - Acute on chronic diastolic (congestive) heart failure (5) COPD (chronic obstructive pulmonary disease) Code(s): J44.9 - CHRONIC OBSTRUCTIVE PULMONARY DISEASE, UNSPECIFIED (6) CVA (cerebral infarction) Code(s): I63.9 - CEREBRAL INFARCTION, UNSPECIFIED (7) Chronic respiratory failure Code(s): J96.10 - CHRONIC RESPIRATORY FAILURE, UNSP W HYPOXIA OR HYPERCAPNIA (8) Dementia Code(s): F03.90 - UNSPECIFIED DEMENTIA WITHOUT BEHAVIORAL DISTURBANCE Qualifiers: Dementia type: unspecified type Dementia behavioral disturbance: without behavioral disturbance Qualified Code(s): F03.90 - Unspecified dementia without behavioral disturbance (9) HTN (hypertension) Code(s): I10 - ESSENTIAL (PRIMARY) HYPERTENSION (10) Hypothyroid Code(s): E03.9 - HYPOTHYROIDISM, UNSPECIFIED (11) Acute on chronic respiratory failure with hypoxemia Code(s): J96.21 - ACUTE AND CHRONIC RESPIRATORY FAILURE WITH HYPOXIA
--- NOTE | 2018-02-28 16:41 | PN ---
Progress Note (short form) - Note Progress Note: temps improved remains minimally responsive trach to vent Vital Signs Period Temp Pulse Resp BP Sys/Mathis Pulse Ox Last 24 Hr 98.4 F-102.4 F 93-107 15-23 99-127/60-74 96-97 cor-rrr lungs scattered rhonchi abd soft,nt +GT ext no edema CBC, BMP 02/28/18 06:50 02/28/18 06:50 legionella antigen negative Microbiology 02/26/18 22:30 Sputum - Endotrachea Suction/Ventilator Gram Stain - Final 02/26/18 22:30 Sputum - Endotrachea Suction/Ventilator Sputum Culture - Preliminary Non Lactose Fermenting Gnb Non Lactose Fermenting Gnb#2 Non Lactose Fermenting Gnb#3 02/25/18 00:00 Blood - Peripheral Venous Blood Culture - Preliminary NO GROWTH OBTAINED AFTER 48 HOURS, INCUBATION TO CONTINUE FOR 3 DAYS. 02/25/18 00:00 Blood - Peripheral Venous Blood Culture - Preliminary NO GROWTH OBTAINED AFTER 48 HOURS, INCUBATION TO CONTINUE FOR 3 DAYS. 02/26/18 22:30 Urine For Antigen Detection Legionella Antigen - Final 02/26/18 22:30 Urine For Antigen Detection Streptococcus pneumoniae Antigen (M - Final 02/26/18 06:45 Urine - Urine Clean Catch Urine Culture - Final NO GROWTH OBTAINED Current Medications Acetaminophen (Tylenol Oral Solution -) 650 mg GT Q6H PRN PRN Reason: FEVER Albuterol/Ipratropium (Duoneb -) 1 amp NEB RQID [facility] Last Admin: 02/28/18 12:33 Dose: 1 amp Artificial Tears (Artificial Tears) 1 drop OU QID [facility] Last Admin: 02/28/18 14:41 Dose: 1 drop Atorvastatin Calcium (Lipitor -) 10 mg GT HS [facility] Last Admin: 02/27/18 21:36 Dose: 10 mg Cholestyramine Resin (Questran Light Packet -) 4 gm GT ACDIN [facility] Last Admin: 02/27/18 17:30 Dose: 4 gm Diltiazem HCl (Cardizem -) 60 mg GT Q6HPO [facility] Last Admin: 02/28/18 11:42 Dose: 60 mg Heparin Sodium (Porcine) (Heparin -) 5,000 unit SQ BID [facility] Last Admin: 02/28/18 10:04 Dose: 5,000 unit Piperacillin Sod/Tazobactam (Sod 4.5 gm/ Dextrose) 100 mls @ 200 mls/hr IVPB Q8H-IV [facility] Last Admin: 02/28/18 10:04 Dose: 200 mls/hr Sodium Chloride (Normal Saline -) 1,000 mls @ 75 mls/hr IV ASDIR [facility] Last Admin: 02/28/18 12:24 Dose: 75 mls/hr Lactobacillus Acidophilus (Bacid -) 1 cap GT QID [facility] Last Admin: 02/28/18 14:42 Dose: 1 cap Levothyroxine Sodium (Synthroid -) 88 mcg GT ACBK [facility] Last Admin: 02/28/18 06:05 Dose: 88 mcg Metoclopramide HCl (Reglan Oral Solution -) 10 mg GT Q6HPO [facility] Last Admin: 02/28/18 11:46 Dose: 10 mg Ranitidine HCl (Zantac Oral Solution -) 150 mg GT DAILY [facility] Last Admin: 02/28/18 10:04 Dose: 150 mg Simethicone (Mylicon Liquid -) 80 mg GT QID [facility] Last Admin: 02/28/18 14:44 Dose: 80 mg imp/reccd pneumonia respiratory failure continue zosyn day #2 f/u cultures
[2018-02-28] MEDS: CHOLESTYRAMINE/ASPARTAME 4 GM PACKET GT SCH (17:36)
[2018-02-28] MEDS: ATORVASTATIN CA 10 MG TABLET (FP) GT SCH (22:04)
[2018-03-01] MEDS ORDERED: PIPERACILLIN/TAZOBACTAM 4.5 GM VIAL IVPB ONE ×3 (00:22→17:15)
[2018-03-01] MEDS ORDERED: DEXTROSE 5%-WATER 100 ML IVPB ONE ×3 (00:23→17:15)
[2018-03-01] MEDS: PIPERACILLIN/TAZOB 4.5 GM 4.5 GM in DEXTROSE 5%-WATER 100 ML IVPB SCH ×3 (01:22→17:39)
[2018-03-01] MEDS: SODIUM CHLORIDE 1,000 ML IV SCH ×2 (01:22→15:00)
[2018-03-01] MEDS: METOCLOPRAMIDE HCL 5 MG/5 ML UNIT DOSE CUP GT SCH ×3 (06:05→17:39)
[2018-03-01] MEDS: LEVOTHYROXINE NA 88 MCG TABLET (FP) GT SCH (06:05)
[2018-03-01] MEDS: dilTIAZem HCL 60 MG TABLET (FP) GT SCH ×3 (06:05→17:39)
[2018-03-01 08:11] LABS: HEMATOCRIT 32.9 % (32.4-45.2); HEMOGLOBIN 10.8 GM/dL (10.7-15.3); MCH 30.3 pg (25.7-33.7); MCHC 32.8 g/dl (32.0-36.0); MEAN CELL VOLUME 92.2 fl (80-96); MEAN PLT VOLUME 9.5 fl (7.5-11.1); PLATELET COUNT 229 K/MM3 (134-434); RBC 3.57 M/mm3 (3.60-5.2); RDW 15.3 % (11.6-15.6); WHITE BLOOD COUNT 13.4 K/mm3 (4.0-10.0)
[2018-03-01] MEDS: ALBUTEROL SO4 2.5/IPRATROPIUM 0.5 INH SOL 3 ML VIAL.NEB. NEB SCH ×4 (08:15→20:50)
[2018-03-01 09:21] LABS: ANION GAP 6 (8-16); BLOOD UREA NITROGEN 24 mg/dL (7-18); CALCIUM 8.1 mg/dL (8.5-10.1); CHLORIDE 105 mmol/L (98-107); CO2 25 mmol/L (21-32); CREATININE 0.8 mg/dL (0.55-1.02); GLUCOSE,RANDOM 120 mg/dL (74-106); PHOSPHOROUS 1.3 mg/dL (2.5-4.9); POTASSIUM 4.1 mmol/L (3.5-5.1); SODIUM 136 mmol/L (136-145)
[2018-03-01] MEDS ORDERED: PT OWN MED DRAWER 7, Y5N ONE ×3 (11:03→21:18)
[2018-03-01] MEDS: HEPARIN NA (PORCINE) 5,000 UNITS/ML 1ML VIAL SQ SCH ×2 (11:06→21:23)
[2018-03-01] MEDS: RANITIDINE HCL 150 MG/10 ML UNIT-DOSE GT SCH (11:06)
[2018-03-01] MEDS: LACTOBACILLUS ACIDOPHILUS 1 TABLET GT SCH ×4 (11:06→21:23)
[2018-03-01] MEDS: SIMETHICONE 40 MG/0.6 ML BOTTLE GT SCH ×4 (11:07→21:24)
[2018-03-01] MEDS: ARTIFICIAL TEARS (POLYVINYL ALCOHOL 1.4%) OPTH DROPS OU SCH ×4 (11:18→21:23)
--- NOTE | 2018-03-01 13:32 | PN ---
Progress Note, Physician - Current Medication List Current Medications: Active Medications Acetaminophen (Tylenol Oral Solution -) 650 mg GT Q6H PRN PRN Reason: FEVER Albuterol/Ipratropium (Duoneb -) 1 amp NEB RQID [facility] Last Admin: 02/28/18 20:00 Dose: 1 amp Artificial Tears (Artificial Tears) 1 drop OU QID [facility] Last Admin: 03/01/18 11:18 Dose: 1 drop Atorvastatin Calcium (Lipitor -) 10 mg GT HS [facility] Last Admin: 02/28/18 22:04 Dose: 10 mg Cholestyramine Resin (Questran Light Packet -) 4 gm GT ACDIN [facility] Last Admin: 02/28/18 17:36 Dose: 4 gm Diltiazem HCl (Cardizem -) 60 mg GT Q6HPO [facility] Last Admin: 03/01/18 11:06 Dose: 60 mg Heparin Sodium (Porcine) (Heparin -) 5,000 unit SQ BID [facility] Last Admin: 03/01/18 11:06 Dose: 5,000 unit Piperacillin Sod/Tazobactam (Sod 4.5 gm/ Dextrose) 100 mls @ 200 mls/hr IVPB Q8H-IV [facility] Last Admin: 03/01/18 10:51 Dose: 200 mls/hr Sodium Chloride (Normal Saline -) 1,000 mls @ 75 mls/hr IV ASDIR [facility] Last Admin: 03/01/18 01:22 Dose: 75 mls/hr Lactobacillus Acidophilus (Bacid -) 1 cap GT QID [facility] Last Admin: 03/01/18 11:06 Dose: 1 cap Levothyroxine Sodium (Synthroid -) 88 mcg GT ACBK [facility] Last Admin: 03/01/18 06:05 Dose: 88 mcg Metoclopramide HCl (Reglan Oral Solution -) 10 mg GT Q6HPO [facility] Last Admin: 03/01/18 11:05 Dose: 10 mg Ranitidine HCl (Zantac Oral Solution -) 150 mg GT DAILY [facility] Last Admin: 03/01/18 11:06 Dose: 150 mg Simethicone (Mylicon Liquid -) 80 mg GT QID [facility] Last Admin: 03/01/18 11:07 Dose: 80 mg - Objective Vital Signs: Vital Signs Temperature 98.6 F 03/01/18 06:26 Pulse Rate 89 03/01/18 07:27 Respiratory Rate 18 03/01/18 07:27 Blood Pressure 137/73 03/01/18 06:26 O2 Sat by Pulse Oximetry (%) 95 03/01/18 07:27 Cardiovascular: Yes: S1, S2 Respiratory: Yes: Rhonchi Gastrointestinal: Yes: Normal Bowel Sounds, Soft Labs: CBC, BMP 03/01/18 07:00 03/01/18 07:00 INR, PTT INR 1.27 (0.82-1.09) H 02/25/18 00:00 Assessment/Plan - Problems (1) Pneumonia Assessment/Plan: zosyn and vancomycin Code(s): J18.9 - PNEUMONIA, UNSPECIFIED ORGANISM Qualifiers: Pneumonia type: due to unspecified organism Laterality: left Lung location: lower lobe of lung Qualified Code(s): J18.1 - Lobar pneumonia, unspecified organism (2) CVA (cerebral infarction) Assessment/Plan: s/p trach and peg dvt ppx Code(s): I63.9 - CEREBRAL INFARCTION, UNSPECIFIED (3) Atrial fibrillation Assessment/Plan: cardizem Code(s): I48.91 - UNSPECIFIED ATRIAL FIBRILLATION Qualifiers: Atrial fibrillation type: unspecified Qualified Code(s): I48.91 - Unspecified atrial fibrillation (4) Hypothyroid Assessment/Plan: check tsh on synthroid Code(s): E03.9 - HYPOTHYROIDISM, UNSPECIFIED
--- NOTE | 2018-03-01 13:34 | PN ---
Progress Note (short form) - Note Progress Note: Responsive on AC mode of vent. Afebrile. Intake & Output 02/26/18 02/27/18 02/28/18 03/01/18 23:59 23:59 23:59 23:59 Intake Total 550 1870 1850 Output Total 550 1000 700 700 Balance -550 -450 1170 1150 Weight 144 lb 14.4 oz 144 lb 9 oz Last Vital Signs Temp Pulse Resp BP Pulse Ox 98.6 F 89 18 137/73 95 03/01/18 06:26 03/01/18 07:27 03/01/18 07:27 03/01/18 06:26 03/01/18 07:27 Active Medications Acetaminophen (Tylenol Oral Solution -) 650 mg GT Q6H PRN PRN Reason: FEVER Albuterol/Ipratropium (Duoneb -) 1 amp NEB RQID [facility] Last Admin: 02/28/18 20:00 Dose: 1 amp Artificial Tears (Artificial Tears) 1 drop OU QID [facility] Last Admin: 03/01/18 11:18 Dose: 1 drop Atorvastatin Calcium (Lipitor -) 10 mg GT HS [facility] Last Admin: 02/28/18 22:04 Dose: 10 mg Cholestyramine Resin (Questran Light Packet -) 4 gm GT ACDIN [facility] Last Admin: 02/28/18 17:36 Dose: 4 gm Diltiazem HCl (Cardizem -) 60 mg GT Q6HPO [facility] Last Admin: 03/01/18 11:06 Dose: 60 mg Heparin Sodium (Porcine) (Heparin -) 5,000 unit SQ BID [facility] Last Admin: 03/01/18 11:06 Dose: 5,000 unit Piperacillin Sod/Tazobactam (Sod 4.5 gm/ Dextrose) 100 mls @ 200 mls/hr IVPB Q8H-IV [facility] Last Admin: 03/01/18 10:51 Dose: 200 mls/hr Sodium Chloride (Normal Saline -) 1,000 mls @ 75 mls/hr IV ASDIR [facility] Last Admin: 03/01/18 01:22 Dose: 75 mls/hr Lactobacillus Acidophilus (Bacid -) 1 cap GT QID [facility] Last Admin: 03/01/18 11:06 Dose: 1 cap Levothyroxine Sodium (Synthroid -) 88 mcg GT ACBK [facility] Last Admin: 03/01/18 06:05 Dose: 88 mcg Metoclopramide HCl (Reglan Oral Solution -) 10 mg GT Q6HPO [facility] Last Admin: 03/01/18 11:05 Dose: 10 mg Ranitidine HCl (Zantac Oral Solution -) 150 mg GT DAILY [facility] Last Admin: 03/01/18 11:06 Dose: 150 mg Simethicone (Mylicon Liquid -) 80 mg GT QID [facility] Last Admin: 03/01/18 11:07 Dose: 80 mg Constitutional: Yes: NAD Eyes: Yes: WNL HENT: Yes: WNL Neck: Yes: Supple (trach) Cardiovascular: Yes: Pulse Irregular, S1, S2 Respiratory: Yes: Scattered Rhonchi Gastrointestinal: Yes: Normal Bowel Sounds, Soft Extremities: Yes: WNL (bilateral ext contractures), Other Edema: No Labs: Laboratory Results - last 24 hr 03/01/18 03/01/18 07:00 07:00 WBC 13.4 H RBC 3.57 L Hgb 10.8 Hct 32.9 MCV 92.2 MCH 30.3 MCHC 32.8 RDW 15.3 Plt Count 229 MPV 9.5 Sodium 136 Potassium 4.1 Chloride 105 Carbon Dioxide 25 Anion Gap 6 L BUN 24 H Creatinine 0.8 Random Glucose 120 H Calcium 8.1 L Phosphorus 1.3 L Magnesium 2.0 Problem List - Problems (1) Fever Code(s): R50.9 - FEVER, UNSPECIFIED (2) Pneumonia Code(s): J18.9 - PNEUMONIA, UNSPECIFIED ORGANISM Qualifiers: Pneumonia type: due to unspecified organism Laterality: left Lung location: lower lobe of lung Qualified Code(s): J18.1 - Lobar pneumonia, unspecified organism (3) Atrial fibrillation Code(s): I48.91 - UNSPECIFIED ATRIAL FIBRILLATION Qualifiers: Atrial fibrillation type: unspecified Qualified Code(s): I48.91 - Unspecified atrial fibrillation (4) CHF (congestive heart failure) Code(s): I50.9 - HEART FAILURE, UNSPECIFIED Qualifiers: Qualified Code(s): I50.33 - Acute on chronic diastolic (congestive) heart failure (5) COPD (chronic obstructive pulmonary disease) Code(s): J44.9 - CHRONIC OBSTRUCTIVE PULMONARY DISEASE, UNSPECIFIED (6) CVA (cerebral infarction) Code(s): I63.9 - CEREBRAL INFARCTION, UNSPECIFIED (7) Chronic respiratory failure Code(s): J96.10 - CHRONIC RESPIRATORY FAILURE, UNSP W HYPOXIA OR HYPERCAPNIA (8) Dementia Code(s): F03.90 - UNSPECIFIED DEMENTIA WITHOUT BEHAVIORAL DISTURBANCE Qualifiers: Dementia type: unspecified type Dementia behavioral disturbance: without behavioral disturbance Qualified Code(s): F03.90 - Unspecified dementia without behavioral disturbance (9) HTN (hypertension) Code(s): I10 - ESSENTIAL (PRIMARY) HYPERTENSION (10) Hypothyroid Code(s): E03.9 - HYPOTHYROIDISM, UNSPECIFIED (11) Acute on chronic respiratory failure with hypoxemia Code(s): J96.21 - ACUTE AND CHRONIC RESPIRATORY FAILURE WITH HYPOXIA Assessment/Plan IMP ACUTE ON CHRONIC HYPOXEMIC RESPIRATORY FAILURE BILATERAL PNEUMONIA AFIB S/P CVA HYPOTHROID HTN DEMENTIA H/O GI BLEED PLAN IV ABX CONTINUE VENT SUPPORT ON AC MODE TRACHEAL SUCTIONING F/U CHEST X-RAYS NUTRITIONAL SUPPORT DVT PROPHYLAXIS DR HEAD
[2018-03-01] MEDS: CHOLESTYRAMINE/ASPARTAME 4 GM PACKET GT SCH (18:55)
[2018-03-01] MEDS: ATORVASTATIN CA 10 MG TABLET (FP) GT SCH (21:24)
[2018-03-02] MEDS ORDERED: PIPERACILLIN/TAZOBACTAM 4.5 GM VIAL IVPB ONE ×3 (00:26→18:15)
[2018-03-02] MEDS ORDERED: DEXTROSE 5%-WATER 100 ML IVPB ONE ×3 (00:26→18:15)
[2018-03-02] MEDS: dilTIAZem HCL 60 MG TABLET (FP) GT SCH ×5 (00:31→23:39)
[2018-03-02] MEDS: METOCLOPRAMIDE HCL 5 MG/5 ML UNIT DOSE CUP GT SCH ×5 (00:31→23:38)
[2018-03-02] MEDS: PIPERACILLIN/TAZOB 4.5 GM 4.5 GM in DEXTROSE 5%-WATER 100 ML IVPB SCH ×3 (01:46→18:22)
[2018-03-02] MEDS: SODIUM CHLORIDE 1,000 ML IV SCH ×2 (06:31→12:00)
[2018-03-02] MEDS: LEVOTHYROXINE NA 100 MCG TABLET (FP) GT SCH (06:32)
[2018-03-02] MEDS: ALBUTEROL SO4 2.5/IPRATROPIUM 0.5 INH SOL 3 ML VIAL.NEB. NEB SCH ×4 (08:15→21:07)
[2018-03-02 09:02] LABS: BASO % 0.3 % (0-2.0); EOS % 2.4 % (0-4.5); HEMATOCRIT 30.2 % (32.4-45.2); HEMOGLOBIN 9.9 GM/dL (10.7-15.3); LYMPH % 10.9 % (8-40); MCH 30.3 pg (25.7-33.7); MCHC 32.8 g/dl (32.0-36.0); MEAN CELL VOLUME 92.3 fl (80-96); MEAN PLT VOLUME 9.4 fl (7.5-11.1); MONO % 10.8 % (3.8-10.2); NEUT % 75.6 % (42.8-82.8); PLATELET COUNT 236 K/MM3 (134-434); RBC 3.28 M/mm3 (3.60-5.2); RDW 15.8 % (11.6-15.6); WHITE BLOOD COUNT 15.9 K/mm3 (4.0-10.0)
[2018-03-02 09:09] LABS: CHLORIDE 109 mmol/L (98-107); POTASSIUM 4.1 mmol/L (3.5-5.1); SODIUM 141 mmol/L (136-145)
[2018-03-02 09:16] LABS: ALBUMIN 2.3 g/dl (3.4-5.0); ALK PHOS 144 U/L (45-117); ANION GAP 5 (8-16); BILIRUBIN,TOTAL 0.1 mg/dL (0.2-1.0); BLOOD UREA NITROGEN 16 mg/dL (7-18); CALCIUM 7.9 mg/dL (8.5-10.1); CO2 27 mmol/L (21-32); CREATININE 0.6 mg/dL (0.55-1.02); GLUCOSE,RANDOM 126 mg/dL (74-106); SGOT/AST 61 U/L (15-37); SGPT/ALT 55 U/L (12-78); TOT PROT 7.4 g/dl (6.4-8.2)
[2018-03-02] MEDS: SIMETHICONE 40 MG/0.6 ML BOTTLE GT SCH ×4 (10:55→22:00)
[2018-03-02] MEDS: RANITIDINE HCL 150 MG/10 ML UNIT-DOSE GT SCH (10:55)
[2018-03-02] MEDS: LACTOBACILLUS ACIDOPHILUS 1 TABLET GT SCH ×4 (10:55→21:56)
[2018-03-02] MEDS: HEPARIN NA (PORCINE) 5,000 UNITS/ML 1ML VIAL SQ SCH ×2 (10:55→21:56)
[2018-03-02] MEDS: ARTIFICIAL TEARS (POLYVINYL ALCOHOL 1.4%) OPTH DROPS OU SCH ×4 (10:55→21:56)
[2018-03-02] MEDS ORDERED: PT OWN MED DRAWER 7, Y5N ONE ×4 (11:24→20:37)
--- NOTE | 2018-03-02 13:09 | PN ---
Progress Note (short form) - Note Progress Note: Responsive on AC mode of vent. Afebrile. CXR: No gross change Intake & Output 02/27/18 02/28/18 03/01/18 03/02/18 23:59 23:59 23:59 23:59 Intake Total 550 1870 2700 1815 Output Total 8500 848 6881 Balance -450 1170 1100 1815 Weight 144 lb 9 oz 142 lb 0.4 oz Last Vital Signs Temp Pulse Resp BP Pulse Ox 97.6 F 94 H 14 142/77 98 03/02/18 06:00 03/02/18 06:00 03/02/18 10:40 03/02/18 06:00 03/02/18 03:32 Active Medications Acetaminophen (Tylenol Oral Solution -) 650 mg GT Q6H PRN PRN Reason: FEVER Albuterol/Ipratropium (Duoneb -) 1 amp NEB RQID [facility] Last Admin: 03/02/18 12:15 Dose: 1 amp Artificial Tears (Artificial Tears) 1 drop OU QID [facility] Last Admin: 03/02/18 10:55 Dose: 1 drop Atorvastatin Calcium (Lipitor -) 10 mg GT HS [facility] Last Admin: 03/01/18 21:24 Dose: 10 mg Cholestyramine Resin (Questran Light Packet -) 4 gm GT ACDIN [facility] Last Admin: 03/01/18 18:55 Dose: 4 gm Diltiazem HCl (Cardizem -) 60 mg GT Q6HPO [facility] Last Admin: 03/02/18 10:55 Dose: 60 mg Heparin Sodium (Porcine) (Heparin -) 5,000 unit SQ BID [facility] Last Admin: 03/02/18 10:55 Dose: 5,000 unit Piperacillin Sod/Tazobactam (Sod 4.5 gm/ Dextrose) 100 mls @ 200 mls/hr IVPB Q8H-IV [facility] Last Admin: 03/02/18 10:55 Dose: 200 mls/hr Sodium Chloride (Normal Saline -) 1,000 mls @ 75 mls/hr IV ASDIR [facility] Last Admin: 03/02/18 06:31 Dose: 75 mls/hr Lactobacillus Acidophilus (Bacid -) 1 cap GT QID [facility] Last Admin: 03/02/18 10:55 Dose: 1 cap Levothyroxine Sodium (Synthroid -) 100 mcg GT ACBK [facility] Last Admin: 03/02/18 06:32 Dose: 100 mcg Metoclopramide HCl (Reglan Oral Solution -) 10 mg GT Q6HPO [facility] Last Admin: 03/02/18 11:23 Dose: 10 mg Ranitidine HCl (Zantac Oral Solution -) 150 mg GT DAILY [facility] Last Admin: 03/02/18 10:55 Dose: 150 mg Simethicone (Mylicon Liquid -) 80 mg GT QID [facility] Last Admin: 03/02/18 10:55 Dose: 80 mg Constitutional: Yes: NAD Eyes: Yes: WNL HENT: Yes: WNL Neck: Yes: Supple (trach) Cardiovascular: Yes: Pulse Irregular, S1, S2 Respiratory: Yes: Scattered Rhonchi Gastrointestinal: Yes: Normal Bowel Sounds, Soft Extremities: Yes: WNL (bilateral ext contractures), Other Edema: No Labs: Laboratory Results - last 24 hr 03/02/18 03/02/18 07:59 07:59 WBC 15.9 H RBC 3.28 L Hgb 9.9 L Hct 30.2 L MCV 92.3 MCH 30.3 MCHC 32.8 RDW 15.8 H Plt Count 236 MPV 9.4 Neutrophils % 75.6 Lymphocytes % 10.9 D Monocytes % 10.8 H Eosinophils % 2.4 Basophils % 0.3 Sodium 141 Potassium 4.1 Chloride 109 H Carbon Dioxide 27 Anion Gap 5 L BUN 16 Creatinine 0.6 Creat Clearance w eGFR > 60 Random Glucose 126 H Calcium 7.9 L Total Bilirubin 0.1 L D AST 61 H ALT 55 Alkaline Phosphatase 144 H Total Protein 7.4 Albumin 2.3 L Problem List - Problems (1) Fever Code(s): R50.9 - FEVER, UNSPECIFIED (2) Pneumonia Code(s): J18.9 - PNEUMONIA, UNSPECIFIED ORGANISM Qualifiers: Pneumonia type: due to unspecified organism Laterality: left Lung location: lower lobe of lung Qualified Code(s): J18.1 - Lobar pneumonia, unspecified organism (3) Atrial fibrillation Code(s): I48.91 - UNSPECIFIED ATRIAL FIBRILLATION Qualifiers: Atrial fibrillation type: unspecified Qualified Code(s): I48.91 - Unspecified atrial fibrillation (4) CHF (congestive heart failure) Code(s): I50.9 - HEART FAILURE, UNSPECIFIED Qualifiers: Qualified Code(s): I50.33 - Acute on chronic diastolic (congestive) heart failure (5) COPD (chronic obstructive pulmonary disease) Code(s): J44.9 - CHRONIC OBSTRUCTIVE PULMONARY DISEASE, UNSPECIFIED (6) CVA (cerebral infarction) Code(s): I63.9 - CEREBRAL INFARCTION, UNSPECIFIED (7) Chronic respiratory failure Code(s): J96.10 - CHRONIC RESPIRATORY FAILURE, UNSP W HYPOXIA OR HYPERCAPNIA (8) Dementia Code(s): F03.90 - UNSPECIFIED DEMENTIA WITHOUT BEHAVIORAL DISTURBANCE Qualifiers: Dementia type: unspecified type Dementia behavioral disturbance: without behavioral disturbance Qualified Code(s): F03.90 - Unspecified dementia without behavioral disturbance (9) HTN (hypertension) Code(s): I10 - ESSENTIAL (PRIMARY) HYPERTENSION (10) Hypothyroid Code(s): E03.9 - HYPOTHYROIDISM, UNSPECIFIED (11) Acute on chronic respiratory failure with hypoxemia Code(s): J96.21 - ACUTE AND CHRONIC RESPIRATORY FAILURE WITH HYPOXIA Assessment/Plan IMP ACUTE ON CHRONIC HYPOXEMIC RESPIRATORY FAILURE BILATERAL PNEUMONIA AFIB S/P CVA HYPOTHROID HTN DEMENTIA H/O GI BLEED PLAN IV ABX CONTINUE VENT SUPPORT ON AC MODE TRACHEAL SUCTIONING NUTRITIONAL SUPPORT DVT PROPHYLAXIS DR HEAD
--- NOTE | 2018-03-02 13:28 | PN ---
Progress Note, Physician - Current Medication List Current Medications: Active Medications Acetaminophen (Tylenol Oral Solution -) 650 mg GT Q6H PRN PRN Reason: FEVER Albuterol/Ipratropium (Duoneb -) 1 amp NEB RQID [facility] Last Admin: 03/02/18 12:15 Dose: 1 amp Artificial Tears (Artificial Tears) 1 drop OU QID [facility] Last Admin: 03/02/18 10:55 Dose: 1 drop Atorvastatin Calcium (Lipitor -) 10 mg GT HS [facility] Last Admin: 03/01/18 21:24 Dose: 10 mg Cholestyramine Resin (Questran Light Packet -) 4 gm GT ACDIN [facility] Last Admin: 03/01/18 18:55 Dose: 4 gm Diltiazem HCl (Cardizem -) 60 mg GT Q6HPO [facility] Last Admin: 03/02/18 10:55 Dose: 60 mg Heparin Sodium (Porcine) (Heparin -) 5,000 unit SQ BID [facility] Last Admin: 03/02/18 10:55 Dose: 5,000 unit Piperacillin Sod/Tazobactam (Sod 4.5 gm/ Dextrose) 100 mls @ 200 mls/hr IVPB Q8H-IV [facility] Last Admin: 03/02/18 10:55 Dose: 200 mls/hr Sodium Chloride (Normal Saline -) 1,000 mls @ 75 mls/hr IV ASDIR [facility] Last Admin: 03/02/18 06:31 Dose: 75 mls/hr Lactobacillus Acidophilus (Bacid -) 1 cap GT QID [facility] Last Admin: 03/02/18 10:55 Dose: 1 cap Levothyroxine Sodium (Synthroid -) 100 mcg GT ACBK [facility] Last Admin: 03/02/18 06:32 Dose: 100 mcg Metoclopramide HCl (Reglan Oral Solution -) 10 mg GT Q6HPO [facility] Last Admin: 03/02/18 11:23 Dose: 10 mg Ranitidine HCl (Zantac Oral Solution -) 150 mg GT DAILY [facility] Last Admin: 03/02/18 10:55 Dose: 150 mg Simethicone (Mylicon Liquid -) 80 mg GT QID [facility] Last Admin: 03/02/18 10:55 Dose: 80 mg - Objective Vital Signs: Vital Signs Temperature 98.1 F 03/02/18 10:00 Pulse Rate 87 03/02/18 13:20 Respiratory Rate 17 03/02/18 13:20 Blood Pressure 131/74 03/02/18 13:20 O2 Sat by Pulse Oximetry (%) 98 03/02/18 03:32 Cardiovascular: Yes: S1, S2 Respiratory: Yes: Mechanically Ventilated Gastrointestinal: Yes: Normal Bowel Sounds, Soft Labs: CBC, BMP 03/02/18 07:59 03/02/18 07:59 INR, PTT INR 1.27 (0.82-1.09) H 02/25/18 00:00 Assessment/Plan - Problems (1) Pneumonia Assessment/Plan: zosyn Code(s): J18.9 - PNEUMONIA, UNSPECIFIED ORGANISM Qualifiers: Pneumonia type: due to unspecified organism Laterality: left Lung location: lower lobe of lung Qualified Code(s): J18.1 - Lobar pneumonia, unspecified organism (2) CVA (cerebral infarction) Assessment/Plan: s/p trach and peg dvt ppx Code(s): I63.9 - CEREBRAL INFARCTION, UNSPECIFIED (3) Atrial fibrillation Assessment/Plan: cardizem Code(s): I48.91 - UNSPECIFIED ATRIAL FIBRILLATION Qualifiers: Atrial fibrillation type: unspecified Qualified Code(s): I48.91 - Unspecified atrial fibrillation (4) Hypothyroid Assessment/Plan: check tsh on synthroid Code(s): E03.9 - HYPOTHYROIDISM, UNSPECIFIED (5) CHF Assessment/Plan: Lasix cxr cardio
[2018-03-02 14:10] LABS: N-TERMINAL BNP 1514.18 pg/ml (5-450)
[2018-03-02] MEDS: FUROSEMIDE 40 MG/4 ML INJECTABLE VIAL IVPUSH SCH (14:36)
--- NOTE | 2018-03-02 15:45 | CON.CARD ---
Consult Consult Specialty:: Cardiology Reason for Consultation:: CHF - History of Present Illness History of Present Illness: 87 year old female with medical history of chronic resp failure s/p CVA with PEG and trach, presented to the ED from [facility] for management of PNA. She has been on vent and was febrile. Given IV abx fluids and lasix. Has previous history of Afib, and heart failure with preserved EF. Xray at [facility] revealed B/LLL infiltrates. 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) Cardio/Vascular: Yes: AFIB Pulmonary: Yes: Previously Intubated, Other (Vent dependent) Gastrointestinal: Yes: GI Bleed ...: No - Alcohol/Substance Use Hx Alcohol Use: No - Smoking History Smoking history: Unknown if ever smoked Have you smoked in the past 12 months: No Aproximately how many cigarettes per day: 0 Home Medications - Allergies Allergies/Adverse Reactions: Allergies Allergy/AdvReac Type Severity Reaction Status Date / Time No Known Allergies Allergy Verified 11/28/15 20:57 - Home Medications Home Medications: Ambulatory Orders Acetaminophen [Tylenol] 650 mg GT Q4H 09/30/14 Diltiazem [Cardizem -] 60 mg PO Q6H 09/30/14 Heparin Na (Porcine) [Heparin] 5,000 units SCJ BID 09/30/14 Metoclopramide HCl 10 mg GT Q6H 09/30/14 Simethicone 80 mg GT QID 09/30/14 Pravastatin Sodium [Pravachol -] 40 mg GT HS 11/02/15 Levothyroxine [Synthroid -] 88 mcg GT ACBK tablet 11/09/15 Ranitidine [Zantac -] 150 mg GT HS 05/22/17 Albuterol 2.5/Ipratropium 0.5 [Duoneb -] 1 amp NEB QIDR amp 06/06/17 Hypromellose 0.5% Opth Soln [Artificial Tears] 1 drop OU QID 02/26/18 Review of Systems Unable to obtain ROS, reason: Vented Vital Signs: Vital Signs Temperature 98.7 F 03/02/18 14:37 Pulse Rate 87 03/02/18 13:20 Respiratory Rate 12 03/02/18 15:00 Blood Pressure 131/74 03/02/18 13:20 O2 Sat by Pulse Oximetry (%) 98 03/02/18 03:32 Constitutional: Yes: No Distress Eyes: Yes: Conjunctiva Clear HENT: Yes: Atraumatic Neck: Yes: Supple, Trachea Midline Respiratory: Yes: Regular, Mechanically Ventilated Gastrointestinal: Yes: Normal Bowel Sounds Cardiovascular: Yes: Regular Rate and Rhythm JVD: No Carotid Bruit: No PMI: Non-Displaced Heart Sounds: Yes: S1, S2 Murmur: No: Systolic Murmur Edema: No - Other Data Labs, Other Data: CBC, BMP 03/02/18 07:59 03/02/18 07:59 INR, PTT INR 1.27 (0.82-1.09) H 02/25/18 00:00 Troponin, BNP 03/02/18 03/02/18 07:59 13:30 B-Natriuretic Peptide 1514.18 H Cancelled Troponin, BNP 03/02/18 03/02/18 07:59 13:30 B-Natriuretic Peptide 1514.18 H Cancelled NSR LAD no STT changes Imaging - Results Chest X-ray: Report Reviewed (Congestive changes.) Problem List - Problems (1) Acute on chronic respiratory failure with hypoxemia Code(s): J96.21 - ACUTE AND CHRONIC RESPIRATORY FAILURE WITH HYPOXIA (2) Fever Code(s): R50.9 - FEVER, UNSPECIFIED (3) Pneumonia Code(s): J18.9 - PNEUMONIA, UNSPECIFIED ORGANISM Qualifiers: Pneumonia type: due to unspecified organism Laterality: left Lung location: lower lobe of lung Qualified Code(s): J18.1 - Lobar pneumonia, unspecified organism (4) Atrial fibrillation Code(s): I48.91 - UNSPECIFIED ATRIAL FIBRILLATION Qualifiers: Atrial fibrillation type: unspecified Qualified Code(s): I48.91 - Unspecified atrial fibrillation (5) CHF (congestive heart failure) Code(s): I50.9 - HEART FAILURE, UNSPECIFIED Qualifiers: Qualified Code(s): I50.33 - Acute on chronic diastolic (congestive) heart failure Assessment/Plan 87 F with history of Afib, CVA, respiratory failure revuiring trach and peg. Now admitted with fever and PNA. Has history of heart failure with preserved EF. Clinical presentation is consistent with PNA with mild BNP elevation due to sepsis. Suggest stopping IVF lasix can be continued for 24 hours and then reassess. Continue Abx and vent support. Monitor electrolytes.
[2018-03-02] MEDS: CHOLESTYRAMINE/ASPARTAME 4 GM PACKET GT SCH (17:30)
[2018-03-02] MEDS: ATORVASTATIN CA 10 MG TABLET (FP) GT SCH (22:00)
[2018-03-03] MEDS ORDERED: PIPERACILLIN/TAZOBACTAM 4.5 GM VIAL IVPB ONE ×3 (01:41→16:53)
[2018-03-03] MEDS ORDERED: DEXTROSE 5%-WATER 100 ML IVPB ONE ×3 (01:42→16:54)
[2018-03-03] MEDS: PIPERACILLIN/TAZOB 4.5 GM 4.5 GM in DEXTROSE 5%-WATER 100 ML IVPB SCH ×3 (02:16→17:12)
[2018-03-03] MEDS: dilTIAZem HCL 60 MG TABLET (FP) GT SCH ×4 (05:45→23:04)
[2018-03-03] MEDS: METOCLOPRAMIDE HCL 5 MG/5 ML UNIT DOSE CUP GT SCH ×4 (05:45→23:04)
[2018-03-03] MEDS: FUROSEMIDE 40 MG/4 ML INJECTABLE VIAL IVPUSH SCH ×2 (05:45→14:59)
[2018-03-03] MEDS: LEVOTHYROXINE NA 100 MCG TABLET (FP) GT SCH (06:02)
[2018-03-03 07:59] LABS: BASO % 0.7 % (0-2.0); EOS % 3.4 % (0-4.5); HEMATOCRIT 31.3 % (32.4-45.2); HEMOGLOBIN 10.4 GM/dL (10.7-15.3); LYMPH % 20.3 % (8-40); MCH 30.5 pg (25.7-33.7); MCHC 33.3 g/dl (32.0-36.0); MEAN CELL VOLUME 91.7 fl (80-96); MEAN PLT VOLUME 9.6 fl (7.5-11.1); MONO % 13.9 % (3.8-10.2); NEUT % 61.7 % (42.8-82.8); PLATELET COUNT 249 K/MM3 (134-434); RBC 3.41 M/mm3 (3.60-5.2); RDW 15.9 % (11.6-15.6); WHITE BLOOD COUNT 11.6 K/mm3 (4.0-10.0)
[2018-03-03 08:16] LABS: ALBUMIN 2.4 g/dl (3.4-5.0); BLOOD UREA NITROGEN 18 mg/dL (7-18); CHLORIDE 104 mmol/L (98-107); POTASSIUM 3.9 mmol/L (3.5-5.1); SODIUM 141 mmol/L (136-145)
[2018-03-03 08:21] LABS: ALK PHOS 142 U/L (45-117); ANION GAP 6 (8-16); BILIRUBIN,TOTAL 0.1 mg/dL (0.2-1.0); CALCIUM 8.1 mg/dL (8.5-10.1); CO2 31 mmol/L (21-32); CREATININE 0.8 mg/dL (0.55-1.02); GLUCOSE,RANDOM 124 mg/dL (74-106); SGOT/AST 50 U/L (15-37); SGPT/ALT 52 U/L (12-78)
[2018-03-03] MEDS: ALBUTEROL SO4 2.5/IPRATROPIUM 0.5 INH SOL 3 ML VIAL.NEB. NEB SCH ×4 (08:22→20:50)
--- NOTE | 2018-03-03 09:56 | PN ---
Progress Note, Physician Chief Complaint: ASLEEP ON VENT SUPPORT NO FEVERS ON TUBE FEEDS - Current Medication List Current Medications: Active Medications Acetaminophen (Tylenol Oral Solution -) 650 mg GT Q6H PRN PRN Reason: FEVER Albuterol/Ipratropium (Duoneb -) 1 amp NEB RQID [facility] Last Admin: 03/03/18 08:22 Dose: 1 amp Artificial Tears (Artificial Tears) 1 drop OU QID [facility] Last Admin: 03/02/18 21:56 Dose: 1 drop Atorvastatin Calcium (Lipitor -) 10 mg GT HS [facility] Last Admin: 03/02/18 22:00 Dose: 10 mg Cholestyramine Resin (Questran Light Packet -) 4 gm GT ACDIN [facility] Last Admin: 03/02/18 17:30 Dose: 4 gm Diltiazem HCl (Cardizem -) 60 mg GT Q6HPO [facility] Last Admin: 03/03/18 05:45 Dose: 60 mg Furosemide (Lasix Injection -) 40 mg IVPUSH BID@0600,1400 [facility] Last Admin: 03/03/18 05:45 Dose: 40 mg Heparin Sodium (Porcine) (Heparin -) 5,000 unit SQ BID [facility] Last Admin: 03/02/18 21:56 Dose: 5,000 unit Piperacillin Sod/Tazobactam (Sod 4.5 gm/ Dextrose) 100 mls @ 200 mls/hr IVPB Q8H-IV [facility] Last Admin: 03/03/18 02:16 Dose: 200 mls/hr Lactobacillus Acidophilus (Bacid -) 1 cap GT QID [facility] Last Admin: 03/02/18 21:56 Dose: 1 cap Levothyroxine Sodium (Synthroid -) 100 mcg GT ACBK [facility] Last Admin: 03/03/18 06:02 Dose: 100 mcg Metoclopramide HCl (Reglan Oral Solution -) 10 mg GT Q6HPO [facility] Last Admin: 03/03/18 05:45 Dose: 10 mg Ranitidine HCl (Zantac Oral Solution -) 150 mg GT DAILY [facility] Last Admin: 03/02/18 10:55 Dose: 150 mg Simethicone (Mylicon Liquid -) 80 mg GT QID [facility] Last Admin: 03/02/18 22:00 Dose: 80 mg - Objective Vital Signs: Vital Signs Temperature 98.7 F 03/03/18 06:00 Pulse Rate 85 03/03/18 06:00 Respiratory Rate 14 03/03/18 06:26 Blood Pressure 153/82 03/03/18 06:00 O2 Sat by Pulse Oximetry (%) 100 03/02/18 23:17 Constitutional: Yes: Mild Distress Eyes: Yes: WNL HENT: Yes: WNL, Tonsillar Exudate Cardiovascular: Yes: Pulse Irregular Respiratory: Yes: Mechanically Ventilated, Rhonchi Gastrointestinal: Yes: WNL, Other (GT) Genitourinary: Yes: Incontinence Musculoskeletal: Yes: Muscle Weakness Extremities: Yes: Other Edema: Yes Peripheral Pulses WNL: Yes Integumentary: Yes: Other Wound/Incision: Yes: Dressing Dry and Intact Neurological: Yes: Pre-Existing Deficit, Unresponsive ...Motor Strength: LLE, RLE Psychiatric: Yes: Other Labs: CBC, BMP 03/03/18 07:24 03/03/18 07:24 INR, PTT INR 1.27 (0.82-1.09) H 02/25/18 00:00 Problem List - Problems (1) Acute on chronic respiratory failure with hypoxemia Code(s): J96.21 - ACUTE AND CHRONIC RESPIRATORY FAILURE WITH HYPOXIA (2) Fever Code(s): R50.9 - FEVER, UNSPECIFIED (3) Pneumonia Code(s): J18.9 - PNEUMONIA, UNSPECIFIED ORGANISM Qualifiers: Pneumonia type: due to unspecified organism Laterality: left Lung location: lower lobe of lung Qualified Code(s): J18.1 - Lobar pneumonia, unspecified organism (4) Atrial fibrillation Code(s): I48.91 - UNSPECIFIED ATRIAL FIBRILLATION Qualifiers: Atrial fibrillation type: unspecified Qualified Code(s): I48.91 - Unspecified atrial fibrillation (5) CHF (congestive heart failure) Code(s): I50.9 - HEART FAILURE, UNSPECIFIED Qualifiers: Qualified Code(s): I50.33 - Acute on chronic diastolic (congestive) heart failure (6) COPD (chronic obstructive pulmonary disease) Code(s): J44.9 - CHRONIC OBSTRUCTIVE PULMONARY DISEASE, UNSPECIFIED (7) CVA (cerebral infarction) Code(s): I63.9 - CEREBRAL INFARCTION, UNSPECIFIED (8) Chronic respiratory failure Code(s): J96.10 - CHRONIC RESPIRATORY FAILURE, UNSP W HYPOXIA OR HYPERCAPNIA (9) Dementia Code(s): F03.90 - UNSPECIFIED DEMENTIA WITHOUT BEHAVIORAL DISTURBANCE Qualifiers: Dementia type: unspecified type Dementia behavioral disturbance: without behavioral disturbance Qualified Code(s): F03.90 - Unspecified dementia without behavioral disturbance Assessment/Plan VENT SUPPORT PER PULMOANRY CXR YESTERDAY NO CHANGES IV ABX NEBS POOR OVERALL QUALITY OF LIFE LASIX NEEDED
[2018-03-03] MEDS ORDERED: PT OWN MED DRAWER 7, Y5N ONE ×5 (10:58→21:03)
[2018-03-03] MEDS: RANITIDINE HCL 150 MG/10 ML UNIT-DOSE GT SCH (11:05)
[2018-03-03] MEDS: HEPARIN NA (PORCINE) 5,000 UNITS/ML 1ML VIAL SQ SCH ×2 (11:05→22:41)
[2018-03-03] MEDS: ARTIFICIAL TEARS (POLYVINYL ALCOHOL 1.4%) OPTH DROPS OU SCH ×4 (11:06→22:40)
[2018-03-03] MEDS: SIMETHICONE 40 MG/0.6 ML BOTTLE GT SCH ×4 (11:07→22:42)
[2018-03-03] MEDS: LACTOBACILLUS ACIDOPHILUS 1 TABLET GT SCH ×4 (12:40→22:41)
--- NOTE | 2018-03-03 13:17 | PN ---
Progress Note, Physician History of Present Illness: pulmonary no change,on vent suport ac mode - Current Medication List Current Medications: Active Medications Acetaminophen (Tylenol Oral Solution -) 650 mg GT Q6H PRN PRN Reason: FEVER Albuterol/Ipratropium (Duoneb -) 1 amp NEB RQID [facility] Last Admin: 03/03/18 11:37 Dose: 1 amp Artificial Tears (Artificial Tears) 1 drop OU QID [facility] Last Admin: 03/03/18 11:06 Dose: 1 drop Atorvastatin Calcium (Lipitor -) 10 mg GT HS [facility] Last Admin: 03/02/18 22:00 Dose: 10 mg Cholestyramine Resin (Questran Light Packet -) 4 gm GT ACDIN [facility] Last Admin: 03/02/18 17:30 Dose: 4 gm Diltiazem HCl (Cardizem -) 60 mg GT Q6HPO [facility] Last Admin: 03/03/18 12:39 Dose: 60 mg Furosemide (Lasix Injection -) 40 mg IVPUSH BID@0600,1400 [facility] Last Admin: 03/03/18 05:45 Dose: 40 mg Heparin Sodium (Porcine) (Heparin -) 5,000 unit SQ BID [facility] Last Admin: 03/03/18 11:05 Dose: 5,000 unit Piperacillin Sod/Tazobactam (Sod 4.5 gm/ Dextrose) 100 mls @ 200 mls/hr IVPB Q8H-IV [facility] Last Admin: 03/03/18 11:08 Dose: 200 mls/hr Lactobacillus Acidophilus (Bacid -) 1 cap GT QID [facility] Last Admin: 03/03/18 12:40 Dose: 1 cap Levothyroxine Sodium (Synthroid -) 100 mcg GT ACBK [facility] Last Admin: 03/03/18 06:02 Dose: 100 mcg Metoclopramide HCl (Reglan Oral Solution -) 10 mg GT Q6HPO [facility] Last Admin: 03/03/18 12:39 Dose: 10 mg Ranitidine HCl (Zantac Oral Solution -) 150 mg GT DAILY [facility] Last Admin: 03/03/18 11:05 Dose: 150 mg Simethicone (Mylicon Liquid -) 80 mg GT QID [facility] Last Admin: 03/03/18 11:07 Dose: 80 mg - Objective Vital Signs: Vital Signs Temperature 98.7 F 03/03/18 06:00 Pulse Rate 82 03/03/18 11:41 Respiratory Rate 15 03/03/18 10:10 Blood Pressure 153/82 03/03/18 06:00 O2 Sat by Pulse Oximetry (%) 97 03/03/18 11:41 Constitutional: Yes: Well Nourished, Calm Eyes: Yes: WNL HENT: Yes: WNL Neck: Yes: Supple (trach) Cardiovascular: Yes: Pulse Irregular, S1, S2 Respiratory: Yes: Rhonchi (scattered tonio rhonchi) Gastrointestinal: Yes: Normal Bowel Sounds, Soft Extremities: Yes: Other (bilateral upper exr contractures) Labs: CBC, BMP 03/03/18 07:24 03/03/18 07:24 INR, PTT INR 1.27 (0.82-1.09) H 02/25/18 00:00 Problem List - Problems (1) Fever Code(s): R50.9 - FEVER, UNSPECIFIED (2) Pneumonia Code(s): J18.9 - PNEUMONIA, UNSPECIFIED ORGANISM Qualifiers: Pneumonia type: due to unspecified organism Laterality: left Lung location: lower lobe of lung Qualified Code(s): J18.1 - Lobar pneumonia, unspecified organism (3) Atrial fibrillation Code(s): I48.91 - UNSPECIFIED ATRIAL FIBRILLATION Qualifiers: Atrial fibrillation type: unspecified Qualified Code(s): I48.91 - Unspecified atrial fibrillation (4) CHF (congestive heart failure) Code(s): I50.9 - HEART FAILURE, UNSPECIFIED Qualifiers: Qualified Code(s): I50.33 - Acute on chronic diastolic (congestive) heart failure (5) COPD (chronic obstructive pulmonary disease) Code(s): J44.9 - CHRONIC OBSTRUCTIVE PULMONARY DISEASE, UNSPECIFIED (6) CVA (cerebral infarction) Code(s): I63.9 - CEREBRAL INFARCTION, UNSPECIFIED (7) Chronic respiratory failure Code(s): J96.10 - CHRONIC RESPIRATORY FAILURE, UNSP W HYPOXIA OR HYPERCAPNIA (8) Dementia Code(s): F03.90 - UNSPECIFIED DEMENTIA WITHOUT BEHAVIORAL DISTURBANCE Qualifiers: Dementia type: unspecified type Dementia behavioral disturbance: without behavioral disturbance Qualified Code(s): F03.90 - Unspecified dementia without behavioral disturbance (9) HTN (hypertension) Code(s): I10 - ESSENTIAL (PRIMARY) HYPERTENSION (10) Hypothyroid Code(s): E03.9 - HYPOTHYROIDISM, UNSPECIFIED (11) Acute on chronic respiratory failure with hypoxemia Code(s): J96.21 - ACUTE AND CHRONIC RESPIRATORY FAILURE WITH HYPOXIA Assessment/Plan IMP ACUTE ON CHRONIC HYPOXEMIC RESPIRATORY FAILURE BILATERAL PNEUMONIA AFIB S/P CVA HYPOTHROID HTN DEMENTIA H/O GI BLEED PLAN IV ABX CONTINUE VENT SUPPORT ON AC MODE TRACHEAL SUCTIONING F/U CHEST X-RAYS NUTRITIONAL SUPPORT DVT PROPHYLAXIS DR VALENTINE Problem List - Problems (1) Fever Code(s): R50.9 - FEVER, UNSPECIFIED (2) Pneumonia Code(s): J18.9 - PNEUMONIA, UNSPECIFIED ORGANISM Qualifiers: Pneumonia type: due to unspecified organism Laterality: left Lung location: lower lobe of lung Qualified Code(s): J18.1 - Lobar pneumonia, unspecified organism (3) Atrial fibrillation Code(s): I48.91 - UNSPECIFIED ATRIAL FIBRILLATION Qualifiers: Atrial fibrillation type: unspecified Qualified Code(s): I48.91 - Unspecified atrial fibrillation (4) CHF (congestive heart failure) Code(s): I50.9 - HEART FAILURE, UNSPECIFIED Qualifiers: Qualified Code(s): I50.33 - Acute on chronic diastolic (congestive) heart failure (5) COPD (chronic obstructive pulmonary disease) Code(s): J44.9 - CHRONIC OBSTRUCTIVE PULMONARY DISEASE, UNSPECIFIED (6) CVA (cerebral infarction) Code(s): I63.9 - CEREBRAL INFARCTION, UNSPECIFIED (7) Chronic respiratory failure Code(s): J96.10 - CHRONIC RESPIRATORY FAILURE, UNSP W HYPOXIA OR HYPERCAPNIA (8) Dementia Code(s): F03.90 - UNSPECIFIED DEMENTIA WITHOUT BEHAVIORAL DISTURBANCE Qualifiers: Dementia type: unspecified type Dementia behavioral disturbance: without behavioral disturbance Qualified Code(s): F03.90 - Unspecified dementia without behavioral disturbance (9) HTN (hypertension) Code(s): I10 - ESSENTIAL (PRIMARY) HYPERTENSION (10) Hypothyroid Code(s): E03.9 - HYPOTHYROIDISM, UNSPECIFIED (11) Acute on chronic respiratory failure with hypoxemia Code(s): J96.21 - ACUTE AND CHRONIC RESPIRATORY FAILURE WITH HYPOXIA
--- NOTE | 2018-03-03 13:42 | PN ---
Progress Note, Physician History of Present Illness: Elderly female with significant dementia, tracheostomy, admitted with bilateral pneumonia, sepsis, and congestive heart failure. - Current Medication List Current Medications: Active Medications Acetaminophen (Tylenol Oral Solution -) 650 mg GT Q6H PRN PRN Reason: FEVER Albuterol/Ipratropium (Duoneb -) 1 amp NEB RQID [facility] Last Admin: 03/03/18 11:37 Dose: 1 amp Artificial Tears (Artificial Tears) 1 drop OU QID [facility] Last Admin: 03/03/18 11:06 Dose: 1 drop Atorvastatin Calcium (Lipitor -) 10 mg GT HS [facility] Last Admin: 03/02/18 22:00 Dose: 10 mg Cholestyramine Resin (Questran Light Packet -) 4 gm GT ACDIN [facility] Last Admin: 03/02/18 17:30 Dose: 4 gm Diltiazem HCl (Cardizem -) 60 mg GT Q6HPO [facility] Last Admin: 03/03/18 12:39 Dose: 60 mg Furosemide (Lasix Injection -) 40 mg IVPUSH BID@0600,1400 [facility] Last Admin: 03/03/18 05:45 Dose: 40 mg Heparin Sodium (Porcine) (Heparin -) 5,000 unit SQ BID [facility] Last Admin: 03/03/18 11:05 Dose: 5,000 unit Piperacillin Sod/Tazobactam (Sod 4.5 gm/ Dextrose) 100 mls @ 200 mls/hr IVPB Q8H-IV [facility] Last Admin: 03/03/18 11:08 Dose: 200 mls/hr Ketoconazole (Nizoral 2% Cream -) 1 applic TP BID [facility] Lactobacillus Acidophilus (Bacid -) 1 cap GT QID [facility] Last Admin: 03/03/18 12:40 Dose: 1 cap Levothyroxine Sodium (Synthroid -) 100 mcg GT ACBK [facility] Last Admin: 03/03/18 06:02 Dose: 100 mcg Metoclopramide HCl (Reglan Oral Solution -) 10 mg GT Q6HPO [facility] Last Admin: 03/03/18 12:39 Dose: 10 mg Ranitidine HCl (Zantac Oral Solution -) 150 mg GT DAILY [facility] Last Admin: 03/03/18 11:05 Dose: 150 mg Simethicone (Mylicon Liquid -) 80 mg GT QID [facility] Last Admin: 03/03/18 11:07 Dose: 80 mg - Objective Vital Signs: Vital Signs Temperature 97.8 F 03/03/18 09:00 Pulse Rate 82 03/03/18 11:41 Respiratory Rate 15 03/03/18 10:10 Blood Pressure 139/68 03/03/18 09:00 O2 Sat by Pulse Oximetry (%) 97 03/03/18 11:41 Constitutional: Yes: No Distress, Calm, Cachectic Eyes: Yes: Conjunctiva Clear HENT: Yes: Atraumatic, Normocephalic Neck: Yes: WNL Cardiovascular: Yes: Pulse Irregular, S1, S2 Respiratory: Yes: Mechanically Ventilated, Rhonchi Gastrointestinal: Yes: WNL, Normal Bowel Sounds, Soft ...Rectal Exam: Yes: Deferred Musculoskeletal: Yes: WNL Extremities: Yes: Deformity Edema: No Peripheral Pulses: Left Radial: 1+, Right Radial: 1+, Left Doralis Pedis: 1+, Right Dorsalis Pedis: 1+, Left Femoral: 1+, Right Femoral: 1+ Integumentary: Yes: WNL Wound/Incision: Yes: Clean/Dry Labs: CBC, BMP 03/03/18 07:24 03/03/18 07:24 INR, PTT INR 1.27 (0.82-1.09) H 02/25/18 00:00 Assessment/Plan The patient remains hemodynamically stable. She is in no apparent distress. Ventricular rates are well controlled in atrial fibrillation. Still with pulmonary congestion. Please continue intravenous Lasix as currently. Continue the other medications as currently. There is no need for further cardiac workup at this point. Please do not hesitate to call us PRN
[2018-03-03] MEDS: KETOCONAZOLE 2% CREAM - 60GM TUBE TP SCH ×2 (17:12→22:41)
[2018-03-03] MEDS: CHOLESTYRAMINE/ASPARTAME 4 GM PACKET GT SCH (17:13)
[2018-03-03] MEDS: ATORVASTATIN CA 10 MG TABLET (FP) GT SCH (22:42)
[2018-03-04] MEDS ORDERED: PIPERACILLIN/TAZOBACTAM 4.5 GM VIAL IVPB ONE ×3 (02:18→17:33)
[2018-03-04] MEDS ORDERED: DEXTROSE 5%-WATER 100 ML IVPB ONE ×3 (02:19→17:33)
[2018-03-04] MEDS: PIPERACILLIN/TAZOB 4.5 GM 4.5 GM in DEXTROSE 5%-WATER 100 ML IVPB SCH ×3 (02:38→18:03)
[2018-03-04] MEDS: LEVOTHYROXINE NA 100 MCG TABLET (FP) GT SCH (06:01)
[2018-03-04] MEDS: dilTIAZem HCL 60 MG TABLET (FP) GT SCH ×4 (06:01→23:51)
[2018-03-04] MEDS: FUROSEMIDE 40 MG/4 ML INJECTABLE VIAL IVPUSH SCH ×2 (06:01→14:36)
[2018-03-04] MEDS: METOCLOPRAMIDE HCL 5 MG/5 ML UNIT DOSE CUP GT SCH ×4 (06:01→23:51)
[2018-03-04] MEDS: ALBUTEROL SO4 2.5/IPRATROPIUM 0.5 INH SOL 3 ML VIAL.NEB. NEB SCH ×4 (07:35→21:15)
[2018-03-04 08:10] LABS: HEMOGLOBIN 10.9 GM/dL (10.7-15.3); MCH 30.4 pg (25.7-33.7); MEAN CELL VOLUME 92.1 fl (80-96); MEAN PLT VOLUME 9.1 fl (7.5-11.1); PLATELET COUNT 319 K/MM3 (134-434); RBC 3.59 M/mm3 (3.60-5.2); RDW 15.8 % (11.6-15.6)
[2018-03-04 08:29] LABS: ANION GAP 6 (8-16); BLOOD UREA NITROGEN 21 mg/dL (7-18); CALCIUM 8.7 mg/dL (8.5-10.1); CHLORIDE 98 mmol/L (98-107); CO2 34 mmol/L (21-32); CREATININE 0.8 mg/dL (0.55-1.02); GLUCOSE,RANDOM 132 mg/dL (74-106); POTASSIUM 3.7 mmol/L (3.5-5.1); SODIUM 138 mmol/L (136-145)
--- NOTE | 2018-03-04 09:10 | DS ---
Physical Examination Vital Signs: Vital Signs Temperature 98.3 F 03/04/18 06:00 Pulse Rate 86 03/04/18 06:00 Respiratory Rate 17 03/04/18 06:57 Blood Pressure 140/89 03/04/18 06:00 O2 Sat by Pulse Oximetry (%) 98 03/04/18 02:57 Cardiovascular: Yes: S1, S2 Respiratory: Yes: Mechanically Ventilated Gastrointestinal: Yes: Normal Bowel Sounds, Soft Labs: CBC, BMP 03/04/18 07:40 03/04/18 07:40 Discharge Summary Reason For Visit: PNEUMONIA Current Active Problems Acute on chronic respiratory failure with hypoxemia (Acute) Fever (Acute) Pneumonia (Acute) Hospital Course: Problems (1) Pneumonia Assessment/Plan: [facility] 04/24 Code(s): J18.9 - PNEUMONIA, UNSPECIFIED ORGANISM Qualifiers: Pneumonia type: due to unspecified organism Laterality: left Lung location: lower lobe of lung Qualified Code(s): J18.1 - Lobar pneumonia, unspecified organism (2) CVA (cerebral infarction) Assessment/Plan: s/p trach and peg dvt ppx Code(s): I63.9 - CEREBRAL INFARCTION, UNSPECIFIED (3) Atrial fibrillation Assessment/Plan: cardizem Code(s): I48.91 - UNSPECIFIED ATRIAL FIBRILLATION Qualifiers: Atrial fibrillation type: unspecified Qualified Code(s): I48.91 - Unspecified atrial fibrillation (4) Hypothyroid Assessment/Plan: check tsh on synthroid Code(s): E03.9 - HYPOTHYROIDISM, UNSPECIFIED (5) CHF Assessment/Plan: Lasix cxr cardio Condition: Stable - Instructions Disposition: LONG-TERM FACILITY - Home Medications Comprehensive Discharge Medication List: Ambulatory Orders Acetaminophen [Tylenol] 650 mg GT Q4H 09/30/14 Diltiazem [Cardizem -] 60 mg PO Q6H 09/30/14 Heparin Na (Porcine) [Heparin] 5,000 units SCJ BID 09/30/14 Metoclopramide HCl 10 mg GT Q6H 09/30/14 Simethicone 80 mg GT QID 09/30/14 Pravastatin Sodium [Pravachol -] 40 mg GT HS 11/02/15 Levothyroxine [Synthroid -] 88 mcg GT ACBK tablet 11/09/15 Ranitidine [Zantac -] 150 mg GT HS 05/22/17 Albuterol 2.5/Ipratropium 0.5 [Duoneb -] 1 amp NEB QIDR amp 06/06/17 Hypromellose 0.5% Opth Soln [Artificial Tears] 1 drop OU QID 02/26/18 Amoxicillin/Potassium Clav [Augmentin 250-62.5 mg/5 ml] 750 mg PEG BID #300 susp.recon 03/04/18 Cholestyramine/Aspartame [Questran Light Packet -] 4 gm GT ACDIN packet Ketoconazole 2% Cream [Nizoral 2% Cream -] 1 applic TP BID cream 03/04/18 Simethicone Liquid [Mylicon Liquid -] 80 mg GT QID ml 03/04/18
[2018-03-04] MEDS ORDERED: PT OWN MED DRAWER 7, Y5N ONE ×2 (09:12→14:33)
[2018-03-04] MEDS: HEPARIN NA (PORCINE) 5,000 UNITS/ML 1ML VIAL SQ SCH ×2 (09:18→22:40)
[2018-03-04] MEDS: RANITIDINE HCL 150 MG/10 ML UNIT-DOSE GT SCH (09:18)
[2018-03-04] MEDS: LACTOBACILLUS ACIDOPHILUS 1 TABLET GT SCH ×4 (09:18→22:40)
[2018-03-04] MEDS: KETOCONAZOLE 2% CREAM - 60GM TUBE TP SCH ×2 (09:19→22:40)
[2018-03-04] MEDS: SIMETHICONE 40 MG/0.6 ML BOTTLE GT SCH ×4 (09:20→22:40)
[2018-03-04] MEDS: ARTIFICIAL TEARS (POLYVINYL ALCOHOL 1.4%) OPTH DROPS OU SCH ×4 (09:22→22:39)
--- NOTE | 2018-03-04 12:44 | PN ---
Progress Note (short form) - Note Progress Note: PULMONARY Vented, unresponsive. Last Vital Signs Temp Pulse Resp BP Pulse Ox 98.0 F 82 12 113/62 97 03/04/18 10:00 03/04/18 11:37 03/04/18 10:15 03/04/18 10:00 03/04/18 11:37 Gen: vented, unresponsive Heart: RRR Lung: scattered rhonchi Abd: soft, nontender Ext: + edema CBC, BMP 03/04/18 07:40 03/04/18 07:40 Active Medications Acetaminophen (Tylenol Oral Solution -) 650 mg GT Q6H PRN PRN Reason: FEVER Albuterol/Ipratropium (Duoneb -) 1 amp NEB RQID [facility] Last Admin: 03/04/18 11:44 Dose: 1 amp Artificial Tears (Artificial Tears) 1 drop OU QID [facility] Last Admin: 03/04/18 09:22 Dose: 1 drop Atorvastatin Calcium (Lipitor -) 10 mg GT HS [facility] Last Admin: 03/03/18 22:42 Dose: 10 mg Cholestyramine Resin (Questran Light Packet -) 4 gm GT ACDIN [facility] Last Admin: 03/03/18 17:13 Dose: 4 gm Diltiazem HCl (Cardizem -) 60 mg GT Q6HPO [facility] Last Admin: 03/04/18 11:38 Dose: 60 mg Furosemide (Lasix Injection -) 40 mg IVPUSH BID@0600,1400 [facility] Last Admin: 03/04/18 06:01 Dose: 40 mg Heparin Sodium (Porcine) (Heparin -) 5,000 unit SQ BID [facility] Last Admin: 03/04/18 09:18 Dose: 5,000 unit Piperacillin Sod/Tazobactam (Sod 4.5 gm/ Dextrose) 100 mls @ 200 mls/hr IVPB Q8H-IV [facility] Last Admin: 03/04/18 09:18 Dose: 200 mls/hr Ketoconazole (Nizoral 2% Cream -) 1 applic TP BID [facility] Last Admin: 03/04/18 09:19 Dose: 1 applic Lactobacillus Acidophilus (Bacid -) 1 cap GT QID [facility] Last Admin: 03/04/18 09:18 Dose: 1 cap Levothyroxine Sodium (Synthroid -) 100 mcg GT ACBK [facility] Last Admin: 03/04/18 06:01 Dose: 100 mcg Metoclopramide HCl (Reglan Oral Solution -) 10 mg GT Q6HPO [facility] Last Admin: 03/04/18 11:38 Dose: 10 mg Ranitidine HCl (Zantac Oral Solution -) 150 mg GT DAILY [facility] Last Admin: 03/04/18 09:18 Dose: 150 mg Simethicone (Mylicon Liquid -) 80 mg GT QID [facility] Last Admin: 03/04/18 09:20 Dose: 80 mg A/P Acute on Chronic Hypoxic Respiratory Failure Pneumonia Atrial Fibrillation h/o CVA HTN Hypothyroidism Dementia - continue antibiotics - rate controlled - continue volume assist control - not a candidate for weaning at this time given poor mental status - enteral feeds - DVT/GI prophylaxis
--- NOTE | 2018-03-04 14:46 | PN ---
Progress Note (short form) - Note Progress Note: afebrile remains minimally responsive trach to vent Vital Signs Period Temp Pulse Resp BP Sys/Mathis Pulse Ox Last 24 Hr 98.0 F-98.7 F 80-86 12-21 113-146/62-89 96-98 trach to vent cor-rrr lungs decreased bs at bases abd soft,nt +GT ext no edema CBC, BMP 03/04/18 07:40 03/04/18 07:40 Microbiology 02/27/18 20:25 Blood - Peripheral Venous Blood Culture - Preliminary NO GROWTH OBTAINED AFTER 96 HOURS, INCUBATION TO CONTINUE FOR 1 DAYS. 02/27/18 19:50 Blood - Peripheral Venous Blood Culture - Preliminary NO GROWTH OBTAINED AFTER 96 HOURS, INCUBATION TO CONTINUE FOR 1 DAYS. 02/25/18 00:00 Blood - Peripheral Venous Blood Culture - Final NO GROWTH AFTER 5 DAYS INCUBATION 02/25/18 00:00 Blood - Peripheral Venous Blood Culture - Final NO GROWTH AFTER 5 DAYS INCUBATION 02/26/18 22:30 Sputum - Endotrachea Suction/Ventilator Gram Stain - Final 02/26/18 22:30 Sputum - Endotrachea Suction/Ventilator Sputum Culture - Final Pseudomonas Aeruginosa Providencia Stuartii Acinetobacter Lwoffii 02/27/18 19:00 Urine - Urine Clean Catch Urine Culture - Final NO GROWTH OBTAINED 02/26/18 22:30 Urine For Antigen Detection Legionella Antigen - Final 02/26/18 22:30 Urine For Antigen Detection Streptococcus pneumoniae Antigen (M - Final 02/26/18 06:45 Urine - Urine Clean Catch Urine Culture - Final NO GROWTH OBTAINED imp/reccd pneumonia respiratory failure continue zosyn day #6 of 7 d/w dr ariza please call back if needed
[2018-03-04] MEDS: CHOLESTYRAMINE/ASPARTAME 4 GM PACKET GT SCH (16:07)
[2018-03-04] MEDS: ATORVASTATIN CA 10 MG TABLET (FP) GT SCH (22:40)
[2018-03-05] MEDS ORDERED: DEXTROSE 5%-WATER 100 ML IVPB ONE ×2 (02:35→09:59)
[2018-03-05] MEDS ORDERED: PIPERACILLIN/TAZOBACTAM 4.5 GM VIAL IVPB ONE ×2 (02:35→09:59)
[2018-03-05] MEDS: PIPERACILLIN/TAZOB 4.5 GM 4.5 GM in DEXTROSE 5%-WATER 100 ML IVPB SCH ×2 (02:39→10:02)
[2018-03-05] MEDS: dilTIAZem HCL 60 MG TABLET (FP) GT SCH ×2 (06:13→12:53)
[2018-03-05] MEDS: METOCLOPRAMIDE HCL 5 MG/5 ML UNIT DOSE CUP GT SCH ×2 (06:13→12:53)
[2018-03-05] MEDS: LEVOTHYROXINE NA 100 MCG TABLET (FP) GT SCH (06:13)
[2018-03-05] MEDS: FUROSEMIDE 40 MG/4 ML INJECTABLE VIAL IVPUSH SCH ×2 (06:13→14:17)
[2018-03-05] MEDS: ALBUTEROL SO4 2.5/IPRATROPIUM 0.5 INH SOL 3 ML VIAL.NEB. NEB SCH ×2 (07:50→12:10)
--- NOTE | 2018-03-05 08:30 | DS ---
Physical Examination Vital Signs: Vital Signs Temperature 98.8 F 03/05/18 06:00 Pulse Rate 84 03/05/18 06:00 Respiratory Rate 12 03/05/18 06:53 Blood Pressure 118/57 03/05/18 06:00 O2 Sat by Pulse Oximetry (%) 97 03/04/18 11:37 Findings/Remarks: This is an 87 year old female with a past medical history of chronic resp failure s/p CVA with PEG and trach, vent dependent who presented to the ED from [facility] for management of PNA. Xray at [facility] revealed B/LLL infiltrates. Pt is nonverbal, HPI and ROS obtained from [facility] chart. ER course was notable for: (1) xray with RLL infiltrate, LLL view obscured by heart (2) WBC 12.1, Lactic acid WNL Recent Travel: none PAST MEDICAL HISTORY: chronic respiratory failure s/p trach, vent dependent, CVA, afib, HTN, HLD, anemia, GI bleed, COPD PAST SURGICAL HISTORY: PEG tracheostomy tube Cardiovascular: Yes: S1, S2 Respiratory: Yes: Mechanically Ventilated Gastrointestinal: Yes: Normal Bowel Sounds, Soft Labs: CBC, BMP 03/04/18 07:40 03/04/18 07:40 Discharge Summary Reason For Visit: PNEUMONIA Current Active Problems Acute on chronic respiratory failure with hypoxemia (Acute) Fever (Acute) Pneumonia (Acute) Hospital Course: Problems (1) Pneumonia Assessment/Plan: zosyn day 04/24 Code(s): J18.9 - PNEUMONIA, UNSPECIFIED ORGANISM Qualifiers: Pneumonia type: due to unspecified organism Laterality: left Lung location: lower lobe of lung Qualified Code(s): J18.1 - Lobar pneumonia, unspecified organism (2) CVA (cerebral infarction) Assessment/Plan: s/p trach and peg dvt ppx Code(s): I63.9 - CEREBRAL INFARCTION, UNSPECIFIED (3) Atrial fibrillation Assessment/Plan: cardizem Code(s): I48.91 - UNSPECIFIED ATRIAL FIBRILLATION Qualifiers: Atrial fibrillation type: unspecified Qualified Code(s): I48.91 - Unspecified atrial fibrillation (4) Hypothyroid Assessment/Plan: check tsh on synthroid Code(s): E03.9 - HYPOTHYROIDISM, UNSPECIFIED (5) CHF Assessment/Plan: Lasix cxr cardio Condition: Stable - Instructions Disposition: [facility] - Home Medications Comprehensive Discharge Medication List: Ambulatory Orders Acetaminophen [Tylenol] 650 mg GT Q4H 09/30/14 Diltiazem [Cardizem -] 60 mg PO Q6H 09/30/14 Heparin Na (Porcine) [Heparin] 5,000 units SCJ BID 09/30/14 Metoclopramide HCl 10 mg GT Q6H 09/30/14 Simethicone 80 mg GT QID 09/30/14 Pravastatin Sodium [Pravachol -] 40 mg GT HS 11/02/15 Levothyroxine [Synthroid -] 88 mcg GT ACBK tablet 11/09/15 Ranitidine [Zantac -] 150 mg GT HS 05/22/17 Albuterol 2.5/Ipratropium 0.5 [Duoneb -] 1 amp NEB QIDR amp 06/06/17 Hypromellose 0.5% Opth Soln [Artificial Tears] 1 drop OU QID 02/26/18 Amoxicillin/Potassium Clav [Augmentin 250-62.5 mg/5 ml] 750 mg PEG BID #300 susp.recon 03/04/18 Cholestyramine/Aspartame [Questran Light Packet -] 4 gm GT ACDIN packet Ketoconazole 2% Cream [Nizoral 2% Cream -] 1 applic TP BID cream 03/04/18 Simethicone Liquid [Mylicon Liquid -] 80 mg GT QID ml 03/04/18
[2018-03-05] MEDS ORDERED: PT OWN MED DRAWER 7, Y5N ONE ×3 (09:58→14:37)
[2018-03-05] MEDS: LACTOBACILLUS ACIDOPHILUS 1 TABLET GT SCH ×2 (10:02→14:18)
[2018-03-05] MEDS: HEPARIN NA (PORCINE) 5,000 UNITS/ML 1ML VIAL SQ SCH (10:02)
[2018-03-05] MEDS: RANITIDINE HCL 150 MG/10 ML UNIT-DOSE GT SCH (10:03)
[2018-03-05] MEDS: ARTIFICIAL TEARS (POLYVINYL ALCOHOL 1.4%) OPTH DROPS OU SCH ×2 (10:03→14:18)
[2018-03-05] MEDS: KETOCONAZOLE 2% CREAM - 60GM TUBE TP SCH (10:03)
[2018-03-05] MEDS: SIMETHICONE 40 MG/0.6 ML BOTTLE GT SCH ×2 (10:06→14:38)
[2018-03-05 12:18] VITALS: TEMP 98.1
[2018-03-05 14:17] VITALS: BP 118/68; PULSE 74
== END 2018-03-05 15:28 | DRG 130 ==
LOC: JER 21:51 → JERBED 02-26 01:37 → JICU 02-26 20:19 → J5S 02-27 22:11
PROVIDERS: ADMIT Internal Medicine; ATTEND Family Medicine
PROC: 5A1955Z Respiratory Ventilation, Greater than 96 Consecutive Hours (ICD-10-PCS; principal; 2018-02-26)
DX: J18.9 Pneumonia, unspecified organism (principal); Z99.11 Dependence on respirator [ventilator] status; I48.91 Unspecified atrial fibrillation; I10 Essential (primary) hypertension; E78.5 Hyperlipidemia, unspecified; K21.9 Gastro-esophageal reflux disease without esophagitis; Z93.0 Tracheostomy status; Z93.1 Gastrostomy status; J44.9 Chronic obstructive pulmonary disease, unspecified; J96.21 Acute and chronic respiratory failure with hypoxia; E03.9 Hypothyroidism, unspecified; F03.90 Unspecified dementia, unspecified severity, without behavioral disturbance, psychotic disturbance, mood disturbance, and anxiety; I11.0 Hypertensive heart disease with heart failure; I50.33 Acute on chronic diastolic (congestive) heart failure; I69.359 Hemiplegia and hemiparesis following cerebral infarction affecting unspecified side
CPT/HCPCS: 36415; 71045-TC-FY; 80048; 80053; 81003; 81015; 83605; 83735; 83880; 84100; 84443; 85025; 85027; 85610; 87040; 87070; 87086; 87186; 87205; 87899; 93005; 93010; 94002; 94640; 99284-25; J0131; J1644; J7030